=== PATIENT | female | born 1985 | race Caucasian/White ===

== ENCOUNTER 2016-08-04 18:41 | Emergency (ER) | payer OTHER ==
[~2016-08-04] VITALS: Ht 160 cm; Wt 60.0 kg
[~2016-08-04 18:41] MED LIST: BCPILLS PO
[2016-08-04 18:48] VITALS: TEMP 36.8; Ht 160 cm; Wt 60.0 kg
[2016-08-04 19:28] VITALS: O2SAT 99
[2016-08-04 19:33] LABS: BASO % 0.4 %; BASO ABS # 0.02 K/uL (0-0.2); COMPLETE YES; HEMATOCRIT 40.1 % (37-47); IG% 0.2 %; LYMPH % 46.6 %; LYMPH ABS # 2.58 K/uL (1.2-3.4); MEAN CELL VOLUME 87.6 fL (80-100); MEAN CORPUSCULAR HEMOGLOBIN 30.3 pg (25-34); MEAN CORPUSCULAR HGB CONC 34.7 g/dl (32-36); MEAN PLATELET VOLUME 11.1 fL (7.4-10.4); MONO % 8.7 %; NEUT % 42.1 %; PLATELET COUNT 194 K/uL (130-400); RED BLOOD COUNT 4.58 M/uL (4.2-5.4); WHITE BLOOD COUNT 5.54 K/uL (4.8-10.8)
--- NOTE | 2016-08-04 19:53 | DIAGNOSTIC IMAGING REPORT ---
CHEST 2 VIEWS ROUTINE CLINICAL HISTORY: left sided chest pain dyspnea COMPARISON STUDY: No previous studies for comparison. FINDINGS: The bones soft tissues and hemidiaphragms are normal. The cardiomediastinal silhouette is normal. The lungs are clear. The pulmonary vasculature is normal. IMPRESSION: Negative chest. Electronically signed by: Jorge Luis Lawson M.D. 08/04/2016 7:52 PM Dictated Date/Time: 08/04/2016 7:51 PM
[2016-08-04 19:57] LABS: ALT/SGPT 16 U/L (12-78); BLOOD UREA NITROGEN 9 mg/dl (7-18); BUN/CREATININE RATIO 12.3 (10-20); CALCIUM 8.8 mg/dl (8.5-10.1); CARBON DIOXIDE 22 mmol/L (21-32); CHLORIDE 104 mmol/L (98-107); CREATININE 0.73 mg/dl (0.60-1.20); GLUCOSE 79 mg/dl (70-99); POTASSIUM 3.8 mmol/L (3.5-5.1); SODIUM 139 mmol/L (136-145)
[2016-08-04 20:07] LABS: ALB/GLOB RATIO 1.2 (0.9-2); ALKALINE PHOSPHATASE 57 U/L (45-117); AST/SGOT 14 U/L (15-37)
--- NOTE | 2016-08-04 20:46 | EMERGENCY ROOM VISIT NOTE ---
History First contact with patient: 18:55 Chief Complaint: CHEST PAIN Stated Complaint: HEART PAIN Nursing Triage Summary: chest pain for the past 3 wks saw urgent care today and told her to come +sob and dizzy pain is intermittant and getting worse and is more all the time and it feels tight History of Present Illness The patient is a 30 year old female who presents to the Emergency Room with complaints of chest pain intermittent for the past 3 weeks. The patient reports that she has had episodes of chest pain for the past few weeks. The pain typically lasts a few minutes at a time. She states that today, the pain became constant. She states it is a throbbing pain and is worse with a deep breath. She rates the discomfort a 5/10. The patient denies any history of similar chest pain. She has not taken any medications for the discomfort. She denies any history of heart disease or blood clots. She does have a family history of blood clots, but no family history of significant heart disease at a young age. She has felt slightly lightheaded at times, but denies shortness of breath, palpitations or syncope. She is not a smoker. She does take control pills. She denies recent travel. She denies fevers, cough, nausea, vomiting or abdominal pain. Review of Systems A complete 10-point Review of Systems was discussed with the patient, with pertinent positives and negatives listed in the History of Present Illness. All remaining Review of Systems questions can be considered negative unless otherwise specified. Social History Smoking Status: Never Smoker Housing Status: lives with significant other Occupation Status: employed Current/Historical Medications Scheduled Control Pills ( Control Pills), 1 TAB PO DAILY Allergies Coded Allergies: No Known Allergies (Unverified , 10/25/14) Physical Exam Vital Signs Date Time Temp Pulse Resp B/P Pulse Ox O2 Delivery O2 Flow Rate FiO2 08/04/16 21:02 72 18 117/73 72 Room Air 08/04/16 19:31 65 08/04/16 19:28 99 Room Air 08/04/16 19:28 70 16 97 Room Air 08/04/16 18:48 36.8 72 18 117/83 95 Room Air Physical Exam VITALS: Vitals are noted on the nurse's note and reviewed by myself. Vital signs stable. GENERAL: This is a 30-year-old female, mildly anxious appearing but in no acute distress, nondiaphoretic, well-developed well-nourished. SKIN: Capillary reflex less than 2 seconds. HEENT: Normocephalic. PERRLA. EOMI. Nares patent. Mucous membranes moist. Neck is supple without nuchal rigidity. HEART: Regular rate and rhythm without murmurs gallops or rubs. LUNGS: Clear to auscultation bilaterally without wheezes, rales or rhonchi. No retractions or accessory muscle use. ABDOMEN: Positive bowel sounds x 4. Soft, nontender, without masses or organomegaly. NEURO: Patient was alert and oriented to person place and time. Medical Decision & Procedures ER Provider Diagnostic Interpretation: CHEST 2 VIEWS ROUTINE FINDINGS: The bones soft tissues and hemidiaphragms are normal. The cardiomediastinal silhouette is normal. The lungs are clear. The pulmonary vasculature is normal. IMPRESSION: Negative chest. Laboratory Results 08/04/16 19:25 Red Blood Count 4.58, Mean Corpuscular Volume 87.6, Mean Corpuscular Hemoglobin 30.3, Mean Corpuscular Hemoglobin Concent 34.7, Mean Platelet Volume 11.1, Neutrophils (%) (Auto) 42.1, Lymphocytes (%) (Auto) 46.6, Monocytes (%) (Auto) 8.7, Eosinophils (%) (Auto) 2.0, Basophils (%) (Auto) 0.4, Neutrophils # (Auto) 2.34, Lymphocytes # (Auto) 2.58, Monocytes # (Auto) 0.48, Eosinophils # (Auto) 0.11, Basophils # (Auto) 0.02 08/04/16 19:25 Test 08/04/16 19:05 08/04/16 19:25 Urine Test NEG (NEG) White Blood Count 5.54 K/uL (4.8-10.8) Red Blood Count 4.58 M/uL (4.2-5.4) Hemoglobin 13.9 g/dL (12.0-16.0) Hematocrit 40.1 % (37-47) Mean Corpuscular Volume 87.6 fL (80-100) Mean Corpuscular Hemoglobin 30.3 pg (25-34) Mean Corpuscular Hemoglobin Concent 34.7 g/dl (32-36) Platelet Count 194 K/uL (130-400) Mean Platelet Volume 11.1 fL (7.4-10.4) Neutrophils (%) (Auto) 42.1 % Lymphocytes (%) (Auto) 46.6 % Monocytes (%) (Auto) 8.7 % Eosinophils (%) (Auto) 2.0 % Basophils (%) (Auto) 0.4 % Neutrophils # (Auto) 2.34 K/uL (1.4-6.5) Lymphocytes # (Auto) 2.58 K/uL (1.2-3.4) Monocytes # (Auto) 0.48 K/uL (0.11-0.59) Eosinophils # (Auto) 0.11 K/uL (0-0.5) Basophils # (Auto) 0.02 K/uL (0-0.2) RDW Standard Deviation 40.2 fL (36.4-46.3) RDW Coefficient of Variation 12.5 % (11.5-14.5) Immature Granulocyte % (Auto) 0.2 % Immature Granulocyte # (Auto) 0.01 K/uL (0.00-0.02) D-Dimer < 190 ug/L FEU (0-500) Anion Gap 13.0 mmol/L (3-11) Est Creatinine Clear Calc Drug Dose 91.5 ml/min Estimated GFR () 126.3 Estimated GFR (Non- 109.0 BUN/Creatinine Ratio 12.3 (10-20) Calcium Level 8.8 mg/dl (8.5-10.1) Total Bilirubin 0.3 mg/dl (0.2-1) Aspartate Amino Transf (AST/SGOT) 14 U/L (15-37) Alanine Aminotransferase (ALT/SGPT) 16 U/L (12-78) Alkaline Phosphatase 57 U/L (45-117) Troponin I < 0.015 ng/ml (0-0.045) Total Protein 7.4 gm/dl (6.4-8.2) Albumin 4.0 gm/dl (3.4-5.0) Globulin 3.4 gm/dl (2.5-4.0) Albumin/Globulin Ratio 1.2 (0.9-2) Thyroid Stimulating Hormone (TSH) 2.640 uIu/ml (0.300-4.500) ECG Rate (beats per minute): 68 Rhythm: normal sinus Findings: no acute ischemic change, no ectopy Comparison ECG Date: no prior available Medical Decision Differential diagnosis includes acute coronary syndrome, pulmonary embolism, pneumothorax, pericarditis, myocarditis, endocarditis, anxiety, musculoskeletal pain, GERD, costochondritis, among others. The patient was evaluated as above. Labs were drawn and IV access was obtained. The patient was placed on the bus driver/monitor. Imaging studies were performed and read by radiology as above. The patient was reassessed multiple times during their stay in the emergency department and remained in stable condition. The patient is a 30-year-old female who presents today complaining of chest pain on and off for the past 3 weeks. Labs revealed no leukocytosis, anemia or concerning electrolyte abnormalities. Troponin was not elevated. D-dimer was not elevated. Urine was negative. EKG was interpreted by myself and showed a normal sinus rhythm without evidence of ischemia or ectopy.. Chest x- ray is unremarkable. All findings were discussed with the patient. She does admit to a significant amount of stress in her life and question whether this pain could be related to stress/anxiety. I do feel this is likely contributed factor to the patient's pain. She was instructed to follow closely with her primary care provider for further evaluation of her chest pain. She will return sooner for any new/concerning symptoms. Based on the patient's presentation, lab results, and imaging studies, I feel the patient is stable for outpatient treatment. The patient's case was reviewed with Dr. Simon, ED attending physician, who agreed with my assessment and treatment plan. Discharge instructions were reviewed with the patient. The patient verbalized understanding of my assessment and treatment plan and was discharged home in good condition. Impression Primary Impression: Non-cardiac chest pain Departure Information Dispostion Home / Self-Care Condition GOOD Referrals No Doctor, Assigned (PCP) Patient Instructions My [facility] Additional Instructions You have been treated in the Emergency Department for your Chest Pain. Laboratory results and Imaging Studies have ruled out any cardiac or pulmonary cause of your chest pain. For pain control, you can use the following [id number] medicines (if >12 yo): - Regular strength (325mg/tab) Tylenol (acetaminophen) 2 tabs every 4-6 hours as needed. Do not exceed 12 tablets in a 24 hour period. Avoid taking more than 4 grams (4000 mg) of Tylenol per day. This includes any other sources of acetaminophen you may take on a regular basis. - Regular strength (200 mg/tab) Advil (ibuprofen) 1-2 tabs every 4-6 hours as needed. Do not exceed a dose of 3200 mg per day. You should schedule a follow-up appointment with your Primary Care Provider in 2 -3 days for further evaluation from today's Emergency Department visit. Return to the Emergency Department if your current symptoms worsen despite treatment course outlined above, or if you develop any of the following symptoms : worsening chest pain, associated jaw/arm pain, nausea, dizziness, shortness of breath, bloody cough, or fainting.
[2016-08-04 21:02] VITALS: BP 117/73; PULSE 72; O2SAT 72
== END 2016-08-04 21:02 | disposition home or self-care (01) ==
LOC: C.EDB 18:42 → C.EDC 21:02
DX: R07.89 Other chest pain (principal); Z82.49 Family history of ischemic heart disease and other diseases of the circulatory system; Z79.3 Long term (current) use of hormonal contraceptives

== ENCOUNTER → 2016-11-03 | Outpatient (CLI) | payer OTHER | END | disposition home or self-care (01) | LOC: C.PAPS 08:36 | PROVIDERS: ATTEND Physician Assistant | DX: Z01.419 Encounter for gynecological examination (general) (routine) without abnormal findings (principal) ==

== ENCOUNTER → 2017-05-18 | Outpatient (CLI) | payer OTHER ==
[2017-05-18 14:02] LABS: URINE APPEARANCE CLEAR (CLEAR); URINE BILIRUBIN NEG (NEG); URINE COLOR YELLOW; URINE NITRITE NEG (NEG); URINE PH 5.5 (4.5-7.5); URINE SPECIFIC GRAVITY 1.014 (1.000-1.030); UROBILINOGEN NEG (NEG)
[2017-05-18 14:09] LABS: MANUAL MICROSCOPIC REQUIRED? NO; REVIEW REQ? NO
== END | disposition home or self-care (01) ==
LOC: C.LABSPEC 13:25
PROVIDERS: ATTEND Obstetrics & Gynecology
DX: Z34.01 Encounter for supervision of normal first pregnancy, first trimester (principal)

== ENCOUNTER → 2017-05-27 | Outpatient (CLI) | payer OTHER ==
[2017-05-27 12:04] LABS: BASO % 0.3 %; BASO ABS # 0.03 K/uL (0-0.2); COMPLETE YES; EOS % 1.4 %; HEMATOCRIT 37.5 % (37-47); IG% 0.3 %; LYMPH % 22.8 %; LYMPH ABS # 2.19 K/uL (1.2-3.4); MEAN CORPUSCULAR HEMOGLOBIN 30.5 pg (25-34); MEAN CORPUSCULAR HGB CONC 34.7 g/dl (32-36); MEAN PLATELET VOLUME 10.5 fL (7.4-10.4); MONO % 8.8 %; NEUT % 66.4 %; PLATELET COUNT 259 K/uL (130-400); RED BLOOD COUNT 4.26 M/uL (4.2-5.4); WHITE BLOOD COUNT 9.59 K/uL (4.8-10.8)
[2017-05-28 11:28] LABS: VARICELLA ZOS VIR IGG VALUE >4000.00 INDEX
[2017-06-02 02:56] LABS: CHLAMYDIA TRACH RNA*** NOT DETECTED (NOT DETECTED); GC (NEIS GONORRHOEAE)RNA** NOT DETECTED (NOT DETECTED)
== END | disposition home or self-care (01) ==
LOC: C.LAB1850 11:04
PROVIDERS: ATTEND Obstetrics & Gynecology
DX: Z34.01 Encounter for supervision of normal first pregnancy, first trimester (principal)

== ENCOUNTER → 2017-07-04 | Outpatient (CLI) | payer OTHER ==
[2017-07-04 14:30] LABS: INFLUENZA B ANTIGEN Neg for Influ B (NEG)
== END | disposition home or self-care (01) ==
LOC: C.LAB 13:35
PROVIDERS: ATTEND Family Medicine
DX: O26.90 Pregnancy related conditions, unspecified, unspecified trimester (principal); R05 Cough; H92.01 Otalgia, right ear; R53.83 Other fatigue; R06.02 Shortness of breath; R61 Generalized hyperhidrosis; Z98.890 Other specified postprocedural states; O26.899 Other specified pregnancy related conditions, unspecified trimester; O99.89 Other specified diseases and conditions complicating pregnancy, childbirth and the puerperium

== ENCOUNTER → 2017-07-22 | Outpatient (CLI) | payer OTHER | END | disposition home or self-care (01) | LOC: C.LAB1850 08:38 | PROVIDERS: ATTEND Obstetrics & Gynecology | DX: Z34.02 Encounter for supervision of normal first pregnancy, second trimester (principal) ==

== ENCOUNTER → 2017-10-14 | Outpatient (CLI) | payer OTHER ==
[2017-10-14 10:24] LABS: HEMATOCRIT 33.6 % (37-47); HEMOGLOBIN 11.5 g/dL (12.0-16.0)
== END | disposition home or self-care (01) ==
LOC: C.LAB1850 08:56
PROVIDERS: ATTEND Obstetrics & Gynecology
DX: Z34.03 Encounter for supervision of normal first pregnancy, third trimester (principal); Z3A.00 Weeks of gestation of pregnancy not specified

== ENCOUNTER 2018-01-04 00:38 | Inpatient (IN) | payer OTHER ==
[~2018-01-04] VITALS: Ht 162.6 cm; Wt 87.0 kg
[2018-01-11] MEDS ORDERED: LACTATED RINGER'S 1000ML 500 ML IV PRN ×2 (08:28→12:34)
[2018-01-11] MEDS ORDERED: LACTATED RINGER'S 1000ML 1,000 ML IV PRN (08:28)
[2018-01-11 08:55] LABS: HEMATOCRIT 35.5 % (37-47); HEMOGLOBIN 12.1 g/dL (12.0-16.0); MEAN CELL VOLUME 90.6 fL (80-100); MEAN CORPUSCULAR HEMOGLOBIN 30.9 pg (25-34); MEAN CORPUSCULAR HGB CONC 34.1 g/dl (32-36); MEAN PLATELET VOLUME 11.8 fL (7.4-10.4); PLATELET COUNT 148 K/uL (130-400); RED CELL DISTRIBUTION WIDTH SD 45.7 fL (36.4-46.3); WHITE BLOOD COUNT 13.09 K/uL (4.8-10.8)
[2018-01-11 09:00] VITALS: Ht 162.6 cm; Wt 87.0 kg
[2018-01-11] MEDS: LACTATED RINGER'S 1000ML 1,000 ML IV SCH ×2 (09:28→15:57)
[2018-01-11] MEDS: OXYTOCIN 30 UNITS/500ML NSS IV PRN ×2 (09:33→19:49)
[2018-01-11] MEDS ORDERED: PRENTAB26 PO (10:15)
[2018-01-11] MEDS ORDERED: BUPIVACAINE 0.25% 30 ML VIAL ONE ×2 (11:34→18:00)
[2018-01-11] MEDS ORDERED: FENTANYL CITRATE INJ 50 MCG/1 ML 2 ML VIAL ONE ×4 (11:35→18:00)
[2018-01-11] MEDS ORDERED: EpHEDrine SULFATE INJ 50 MG/ML AMP ONE ×2 (11:35→18:00)
[2018-01-11] MEDS ORDERED: FENTANYL 2MCG/ML ROPIV 1.25MG/ML 100ML BAG ONE ×2 (11:36→18:01)
[2018-01-11] MEDS ORDERED: LIDOCAINE HCL 2% MPF 5 ML VIAL (20MG/ML) ONE ×3 (12:21→18:41)
[2018-01-11] MEDS ORDERED: NALOXONE HCL INJ 1 MG in SODIUM CHLORIDE 0.9% 1000ML 1,000 ML IV PRN (12:34)
[2018-01-11] MEDS ORDERED: DiphenhydrAMINE HCL 50 MG/ML VIAL IV PRN (12:45)
[2018-01-11] MEDS ORDERED: EpHEDrine SULFATE INJ 50 MG/ML AMP IV PRN (12:45)
[2018-01-11] MEDS ORDERED: NALOXONE HCL INJ 0.4 MG/1 ML VIAL/CARP IV PRN (12:45)
[2018-01-11] MEDS ORDERED: FENTANYL 2MCG/ML ROPIV 1.25MG/ML 100ML BAG EPI PRN (12:45)
[2018-01-11] MEDS ORDERED: NALBUPHINE HCL INJ 10 MG/ML 1ML AMP IV PRN (12:45)
[2018-01-11] MEDS ORDERED: ONDANSETRON INJ 2 MG/ML 2 ML VIAL IV PRN (12:45)
[2018-01-11] MEDS ORDERED: NURSING VERBAL MED ORDER ONE (22:50)
[2018-01-11] MEDS ORDERED: LACTATED RINGER'S 1000ML 1,000 ML IV SCH (22:57)
[2018-01-11] MEDS ORDERED: OXYCODONE/ACETAMINOPHEN 5-325 TAB PO PRN (23:00)
[2018-01-11] MEDS ORDERED: ACETAMINOPHEN 325 MG TAB PO PRN (23:00)
[2018-01-11] MEDS ORDERED: HYDROCORTISONE ACETATE 25 MG SUPP PR PRN (23:00)
[2018-01-11] MEDS ORDERED: OXYTOCIN 30 UNITS/500ML NSS IV PRN (23:00)
[2018-01-11] MEDS ORDERED: LANOLIN OINT EXT PRN (23:00)
[2018-01-11] MEDS ORDERED: SUPERCREAM 0.870 % 15GM JAR EXT PRN (23:00)
[2018-01-11] MEDS ORDERED: BENZOCAINE 20% AER SPR 82.5 GM CAN EXT PRN (23:00)
--- NOTE | 2018-01-11 23:12 | Vaginal Delivery Summary ---
Vaginal Delivery Klaudia Jacobs reached complete dilation and pushed for about 90min before . She was prepped with soap and water, and then delivered the head of the . A nuchal cord was reduced. There was a mild shoulder dystocia that resolved in less than 60 seconds with Lupe positioning and gentle downward guidance of the 's head. The right / anterior shoulder then delivered, followed by the posterior shoulder and the remainder of the 's body. A viable female was placed on the maternal abdomen and cord was clamped and cut by the FOB. Due to terminal meconium as well as mec stained fluid, bulb suction was provided even before cord was cut, and the infant was taken to the warmer for attention right after cord cutting. Normal movement of all limbs was seen. A large gush of blood was then noted per vagina. The cord avulsed promptly from the placenta with only minimal traction applied. Fundal massage was used to bring the placenta to the cervix, where it was manually retrieved. The placenta appeared to be complete, and brief exploration of the uterus revealed no retained portions. Bleeding rapidly improved to a normal level, however 1000mcg of cytotec were also given rectally to prevent excessive lochia going forward. A second degree was repaired in the usual manner with 2-0 vicryl. At the completion of delivery the fundus was firm, lochia was minimal and mom and infant were in good condition. EBL for delivery 500cc.
--- NOTE | 2018-01-11 23:34 | Anesthesia Procedure Note ---
Anesthesia Epidural Removal Nt Date & Time Jan 11, 2018 at 23:34 Vital Signs Pain Intensity: 9.0 Notes Mental Status: alert / awake / arousable, participated in evaluation Nausea / Vomiting: adequately controlled Pain: adequately controlled Airway Patency, RR, SpO2: stable & adequate BP & HR: stable & adequate Hydration State: stable & adequate Neuraxial Anesthesia: was administered, sensory block is resolving Anesthetic Complications: no major complications apparent, pt satisfied with anesthetic care Epidural: removed without complications, with tip intact
[2018-01-12] VITALS (7 sets, daily range): BP systolic 125–142; BP diastolic 83–91; PULSE 76–108; TEMP 36.5–37; O2SAT 97
[2018-01-12] MEDS ORDERED: MISOPROSTOL 200 MCG TAB PR STA (00:30)
[2018-01-12 06:35] LABS: HEMATOCRIT 29.7 % (37-47); HEMOGLOBIN 10.2 g/dL (12.0-16.0)
--- NOTE | 2018-01-12 07:03 | Progress Note ---
Subjective Jan 12, 2018. Subjective conversation w/ patient, physical exam Ambulation: ambulating normally Voiding: no voiding problems Passing Gas: Yes Diet Tolerance: Regular Diet Lochia: Moderate Feeding Type: Breast Feeding (with formula supplementation) Pain: Reports no pain Review of Systems Constitutional: + fever, + chills, + sweats Respiratory: + cough, + sputum, + wheezing Cardiac: + chest pain, + palpitations Abdomen: + pain, + nausea, + vomiting Female : + dysuria Objective Vital Signs Date Time Temp Pulse Resp B/P (MAP) Pulse Ox O2 Delivery O2 Flow Rate FiO2 01/12/18 04:35 36.9 108 20 129/86 (100) 97 Room Air 01/12/18 01:30 36.9 105 20 127/83 (98) 97 Room Air 01/12/18 01:30 97 Room Air Physical Exam General Appearance: WELL-APPEARING, NO APPARENT DISTRESS Respiratory/Chest: chest non-tender Cardiovascular: regular rate, rhythm, no gallop, no murmur Abdomen: normal bowel sounds Fundus: Firm, Relation to Umbilicus (below) Extremities: non-tender, no calf tenderness Laboratory Results Last 24 Hours Test 01/11/18 08:41 01/12/18 06:09 White Blood Count 13.09 K/uL Red Blood Count 3.92 M/uL Hemoglobin 12.1 g/dL 10.2 g/dL Hematocrit 35.5 % 29.7 % Mean Corpuscular Volume 90.6 fL Mean Corpuscular Hemoglobin 30.9 pg Mean Corpuscular Hemoglobin Concent 34.1 g/dl RDW Standard Deviation 45.7 fL RDW Coefficient of Variation 14.0 % Platelet Count 148 K/uL Mean Platelet Volume 11.8 fL Medications Current Inpatient Medications Medications (Trade) Dose Ordered Sig/Ирина Route Start Time Stop Time Status Last Admin Dose Admin Lactated Ringer's 1,000 ml @ 125 mls/hr Q8H IV 01/11/18 08:28 01/13/18 08:27 01/11/18 15:57 125 MLS/HR Lactated Ringer's 500 ml @ 999 mls/hr Q31M PRN IV 01/11/18 08:28 02/10/18 08:27 Lactated Ringer's 1,000 ml @ 125 mls/hr Q8H IV 01/11/18 22:57 02/10/18 22:56 Oxytocin (Pitocin IV) 30 units UD PRN IV 01/11/18 23:00 02/10/18 22:59 Benzocaine (Dermoplast Aero Spr) 1 appln PRN PRN EXT 01/11/18 23:00 02/10/18 22:59 01/12/18 04:50 1 APPLN Cocaine HCl (Supercream 0.870% Cr) BID PRN EXT 01/11/18 23:00 01/25/18 22:59 01/12/18 04:50 15 GM Hydrocortisone Acetate (Anusol Hc Supp) 25 mg BID PRN NV 01/11/18 23:00 02/10/18 22:59 Lanolin (Lanolin Oint) PRN PRN EXT 01/11/18 23:00 02/10/18 22:59 Prenat Multivit/ [place]/Iron/Folic Ac ( Vitamin Tab) 1 tab DAILY PO 01/12/18 08:00 02/11/18 07:59 Ibuprofen (Motrin Tab) 600 mg Q4H PRN PO 01/11/18 23:00 02/10/18 22:59 Acetaminophen (Tylenol Tab) 650 mg Q6H PRN PO 01/11/18 23:00 02/10/18 22:59 Oxycodone/ Acetaminophen (Percocet 5-325mg Tab) 1 tab Q4H PRN PO 01/11/18 23:00 01/25/18 22:59 Docusate Sodium (coLACE CAP) 100 mg BID PO 01/12/18 08:00 02/11/18 07:59 Diphtheria/ Pertussis/Tetanus Vacc (Adacel Inj) 0.5 ml ONCE ONCE IM. 01/12/18 09:00 01/12/18 09:01 Assessment and Plan Day#: 1 Continue Routine Care: 25 yo PPD1 s/p -AFVSS, Pt doingwell resting comfortably -F/U CBC HGB 10.2 down from 12.1 appropriate s/p delivery, no si/sx -Plan is to breast feed -Tolerating regular diet -Continue to encourage ambulation -Routine care Resident Physician Supervision Note: I interviewed and examined the patient. Discussed with Dr. Antonio and agree with findings and plan as documented in the note. Any exceptions or clarifications are listed here: [None] Documented By: Marta Ayala Resident Tracking Resident Involvement: Resident Care Provided Care Provided: Adult [facility]
[2018-01-12] MEDS: PRENATAL VITAMIN TAB PO SCH (08:27)
[2018-01-12] MEDS: DOCUSATE SODIUM 100 MG CAP PO SCH ×2 (08:27→19:41)
[2018-01-12] MEDS: IBUPROFEN 600 MG TAB PO PRN ×3 (08:28→23:42)
[2018-01-12] MEDS ORDERED: DIPHTHERIA/TETANUS/PERTUSSIS 0.5 ML SYR/VIAL IM. ONE (09:00)
[2018-01-13 02:35] VITALS: BP 142/96; PULSE 78; TEMP 36.6
[2018-01-13] MEDS: IBUPROFEN 600 MG TAB PO PRN (04:13)
[2018-01-13 05:10] VITALS: BP 121/77; PULSE 108; TEMP 37.9; O2SAT 96
[2018-01-13 06:00] VITALS: BP 123/74; PULSE 97; TEMP 37
--- NOTE | 2018-01-13 06:30 | Progress Note ---
Subjective Jan 13, 2018. Subjective conversation w/ patient, physical exam Ambulation: ambulating normally Voiding: no voiding problems Passing Gas: Yes Diet Tolerance: Regular Diet Lochia: Small (improving) Feeding Type: Breast Feeding (with formula supplementation) Pain: improving Review of Systems Constitutional: No fever, No chills, No sweats Respiratory: No cough, No sputum, No wheezing Cardiac: No chest pain, No palpitations Abdomen: No pain, No nausea, No vomiting, No diarrhea, No constipation Female : No dysuria Objective Vital Signs Date Time Temp Pulse Resp B/P (MAP) Pulse Ox O2 Delivery O2 Flow Rate FiO2 01/13/18 06:00 37.0 97 18 123/74 (90) 01/13/18 05:10 37.9 108 18 121/77 (92) 96 Room Air 01/13/18 02:35 36.6 78 142/96 (111) 01/12/18 23:45 36.6 76 18 130/88 (102) Room Air 01/12/18 19:45 Room Air 01/12/18 19:45 37.0 88 18 137/91 (106) Room Air 01/12/18 16:03 36.5 88 16 142/91 (108) Room Air 01/12/18 12:42 36.6 77 16 129/85 (100) Room Air 01/12/18 08:00 36.8 106 16 125/84 (98) Room Air 01/12/18 08:00 Room Air Physical Exam General Appearance: WELL-APPEARING, NO APPARENT DISTRESS Respiratory/Chest: chest non-tender, normal breath sounds Cardiovascular: regular rate, rhythm Abdomen: normal bowel sounds Fundus: Firm, Relation to Umbilicus (below) Extremities: no calf tenderness Laboratory Results Last Resulted 01/11/18 08:41 01/12/18 06:09 Medications Current Inpatient Medications Medications (Trade) Dose Ordered Sig/Ирина Route Start Time Stop Time Status Last Admin Dose Admin Lactated Ringer's 1,000 ml @ 125 mls/hr Q8H IV 01/11/18 08:28 01/13/18 08:27 01/11/18 15:57 125 MLS/HR Lactated Ringer's 500 ml @ 999 mls/hr Q31M PRN IV 01/11/18 08:28 02/10/18 08:27 Lactated Ringer's 1,000 ml @ 125 mls/hr Q8H IV 01/11/18 22:57 02/10/18 22:56 Oxytocin (Pitocin IV) 30 units UD PRN IV 01/11/18 23:00 02/10/18 22:59 Benzocaine (Dermoplast Aero Spr) 1 appln PRN PRN EXT 01/11/18 23:00 02/10/18 22:59 01/12/18 04:50 1 APPLN Cocaine HCl (Supercream 0.870% Cr) BID PRN EXT 01/11/18 23:00 01/25/18 22:59 01/12/18 04:50 15 GM Hydrocortisone Acetate (Anusol Hc Supp) 25 mg BID PRN OR 01/11/18 23:00 02/10/18 22:59 Lanolin (Lanolin Oint) PRN PRN EXT 01/11/18 23:00 02/10/18 22:59 Prenat Multivit/ [place]/Iron/Folic Ac ( Vitamin Tab) 1 tab DAILY PO 01/12/18 08:00 02/11/18 07:59 01/12/18 08:27 1 TAB Ibuprofen (Motrin Tab) 600 mg Q4H PRN PO 01/11/18 23:00 02/10/18 22:59 01/13/18 04:13 600 MG Acetaminophen (Tylenol Tab) 650 mg Q6H PRN PO 01/11/18 23:00 02/10/18 22:59 01/13/18 05:12 650 MG Oxycodone/ Acetaminophen (Percocet 5-325mg Tab) 1 tab Q4H PRN PO 01/11/18 23:00 01/25/18 22:59 Docusate Sodium (coLACE CAP) 100 mg BID PO 01/12/18 08:00 02/11/18 07:59 01/12/18 19:41 100 MG Assessment and Plan Day#: 2 Continue Routine Care: 32 yo PPD2 s/p -AFVSS, Pt doing well resting comfortably with baby -no si/sx of anemia -Plan is try breast feeding and supplementing with formula -Tolerating regular diet -Continue to encourage ambulation -Routine care -Provided Discharge Counseling regarding vaginal bleeding, fever, f/u 6 weeks, no heavy lifting for 2-3 weeks, breast feeding, taking pre-tabatha vitamin, and intercourse Resident Physician Supervision Note: I was present with Dr. Antonio during the history and exam. I discussed the case with the resident and agree with the findings and plan as documented in the note. Any exceptions or clarifications are listed here: PPD#2 [place] home Documented By: Estella Mendez Resident Tracking Resident Involvement: Resident Care Provided Care Provided: Adult [facility]
--- NOTE | 2018-01-13 07:02 | Discharge Instructions ---
Discharge Instructions Date of Service Jan 13, 2018. Admission Reason for Admission: Induction Discharge Discharge Diagnosis / Problem: Discharge Goals Goal(s): Routine recovery after delivery Medications Continue Dispensed Medications: supercream, dermaplast, tucks Activity Recommendations Activity Limitations: per Instructions/Follow-up section . Instructions / Follow-Up Instructions / Follow-Up ACTIVITY RECOMMENDATIONS: * Gradual return to full activity over the next 2-3 weeks. * No lifting - nothing heavier than baby over the next 2-3 weeks. * Do not engage in vigorous exercise, sexual activity or sports until cleared by your physician. * Do not drive or operate any motorized equipment until cleared by your physician. * You may shower/bathe daily. MEDICATIONS: For discomfort or pain, you may use Acetaminophen (Tylenol), Ibuprofen (Advil), or Naproxen (Aleve) following the package directions. For constipation you may use Colace following the package directions. BREAST CARE: If you are not breast feeding: * Wear a supportive bra 24 hours a day for one to two weeks. * Avoid stimulating your breasts and nipples as much as possible during the first few weeks after delivery. * When taking a shower, have the warm water hit your back, not breasts. * When your breasts feel full, apply ice packs. Usually three to four times a day helps ease the discomfort. * Take a mild pain medication (Tylenol / Motrin) when you are uncomfortable. If breast feeding: * Use breast milk to lubricate nipples. Lansinoh cream may be used for sore nipples. You do not need to remove cream prior to breast feeding. If using a different brand of cream, check the label for directions regarding removal of cream prior to nursing. * Wear a supportive bra. * If having problems with breasts or breast feeding, call a reimbursement consultant or your health care provider. EPISIOTOMY CARE: After delivery, if you have an episiotomy (stitches), the following steps will ease discomfort and aid healing. * For the first 24 hours after delivery, place ice packs next to your episiotomy to help reduce swelling. * After the first 24 hour-period, sitz baths, either portable or in the tub, are suggested. A shower with a shower arm sprayed over the episiotomy may be comforting. * Mary care should be done after each voiding and bowel movement. Squirt warm water from a plastic bottle over the perineum (region of the body between the anus and urinary opening) and pat dry. * Use Dermoplast to ease discomfort. Shake container. [place] directly over the episiotomy. Place a Tucks on a clean sanitary pad next to your episiotomy. SPECIAL CARE INSTRUCTIONS: When you are discharged from the hospital, it is important for you to follow the instructions listed below: * During the first week at home, you should be able to care for yourself and your baby. In addition, the usual light household activities are encouraged. * Limit your activities to the way you feel. Do not try to clean the house or move furniture. Be sensible. * If you actively engage in sports and have done so up until the time of your delivery, you may resume these activities as soon as you feel able. This may take up to one month or even longer. Use good judgment. * Continue to take your vitamins for at least six weeks after the of your baby. * Your diet need not be limited unless you were on a special diet before your delivery. Breast-feeding mothers need around 2500 calories per day and at least 64-80 ounces of fluid per day (8 to 10 glasses). * You should eat foods from the four major food groups. Crash diets or fad diets are to be avoided. Eating lean meats, fresh fruits and vegetables, low-fat dairy products, high fiber foods and a regular exercise program, will help you get back to your pre- weight without putting your health at risk. * Constipation is sometimes a problem after delivery. Take a mild laxative as needed. If breast feeding, Milk of Magnesia is acceptable to use. You may use a suppository or Fleets enema if no episiotomy. * A daily shower or tub bath is suggested. Be sure to thoroughly and gently dry the perineum. * A bloody vaginal discharge will usually continue until around four weeks post . A small amount of bleeding may continue for as long as six weeks. Vaginal discharge changes from the bright red bleeding after delivery to pink then brownish and finally yellowish-pink before becoming white and disappearing. * Bleeding may increase with activity. Your first period may come in 4-8 weeks. If you are breast feeding, your period may be delayed even longer. * August (sex) can begin whenever both you and your partner feel comfortable and do not have any form of genital infection. It is recommended that you wait at least six weeks for internal and external healing to occur. If you have questions, please talk to your health care practitioner. A condom should be used to prevent infection and . * Foreplay, gentle intercourse and lubrication is very important the first several times to prevent pain. A water-based lubricant such as K-Y jelly or Astroglide may be used. * If you have RH negative blood and your baby is RH positive, you will receive RHOGAM by injection prior to discharge. The nurse will give you a card to keep with you that has the date and place that you received RHOGAM after delivery. * During your care, you had a Rubella screen done to check for the presence of rubella antibodies in your blood. If your test was negative, you will receive a Rubella vaccine prior to discharge. This vaccine may cause a fever, soreness at the injection site and flu-like symptoms. If these symptoms persist, notify your health care practitioner. is not advised for one month after a Rubella vaccine. * Verbalizes understanding of car seat law as reviewed with patient nursing. * Car Seat hand-out given and reviewed with patient by nursing. * Shaken baby information reviewed with patient by nursing. Call you doctor if: * Heavy bleeding (saturating several pads an hour) or passing clots the size of your fist. * A fever >101 degrees F (38.3 degrees C) on two occasions four hours apart and /or chills. * Unusual pain in the pelvic or vaginal areas. * "Baby Blues" lasting longer than two weeks. If you have any questions or concerns, call your health care practitioner at . FOLLOW UP VISIT: * Please call the office at to schedule a 6 week examination. It is important you keep this appointment. It is important for you to make arrangements for either yearly or twice yearly check-ups thereafter. Current Hospital Diet Patient's current hospital diet: Regular OB Diet Discharge Diet Recommended Diet: Regular OB Diet Pending Studies Studies pending at discharge: yes List of pending studies: Placenta path pending Medical Emergencies . Who to Call and When: Medical Emergencies: If at any time you feel your situation is an emergency, please call 911 immediately. . Non-Emergent Contact Non-Emergency issues call your: [employer] Call Non-Emergent contact if: temperature is above 100.5 . . "Provider Documentation" section prepared by Abdias Antonio. . Resident Tracking Resident Involvement: Resident Care Provided Care Provided: Adult Hospital Medicine
[2018-01-13 07:20] VITALS: BP 107/72; PULSE 88; TEMP 36.6; O2SAT 97
[2018-01-13] MEDS: DOCUSATE SODIUM 100 MG CAP PO SCH (09:28)
[2018-01-13] MEDS: PRENATAL VITAMIN TAB PO SCH (09:28)
[2018-01-13 09:30] VITALS: TEMP 36.8
[2018-01-13 10:05] VITALS: BP_DIAS 72; PULSE 88; TEMP 36.8
== END 2018-01-13 10:55 | disposition home or self-care (01) | DRG 775 ==
LOC: C.LD 01-11 07:31 → C.OBG 01-12 01:22
PROVIDERS: ADMIT Obstetrics & Gynecology; ATTEND Obstetrics & Gynecology
PROC: 10E0XZZ Delivery of Products of Conception, External Approach (ICD-10-PCS; principal; 2018-01-11)
PROC: 0KQM0ZZ Repair Perineum Muscle, Open Approach (ICD-10-PCS; principal; 2018-01-11)
PROC: 3E030VJ Introduction of Other Hormone into Peripheral Vein, Open Approach (ICD-10-PCS; 2018-01-11)
DX: O48.0 Post-term pregnancy (principal); O69.81X0 Labor and delivery complicated by cord around neck, without compression, not applicable or unspecified; O77.0 Labor and delivery complicated by meconium in amniotic fluid; O66.0 Obstructed labor due to shoulder dystocia; O70.1 Second degree perineal laceration during delivery; Z37.0 Single live birth; Z3A.41 41 weeks gestation of pregnancy

== ENCOUNTER 2018-01-16 13:15 | Inpatient (IN) | payer OTHER ==
[~2018-01-16] VITALS: Ht 160 cm; Wt 83.1 kg
[2018-01-16] VITALS (8 sets, daily range): BP systolic 128–135; BP diastolic 84–86; PULSE 80–91; TEMP 36.8–39.3; O2SAT 96–99; Ht 160 cm; Wt 83.1 kg
[~2018-01-16 13:15] MED LIST changes: -BCPILLS PO; +PRENTAB26 PO
[2018-01-16] MEDS ORDERED: ACETAMINOPHEN IV 100 ML IV STA (13:41)
[2018-01-16] MEDS ORDERED: SODIUM CHLORIDE 0.9% 1000ML 500 ML IV ONE (13:41)
[2018-01-16] MEDS ORDERED: PIPERACILLIN/TAZOBACTAM 4.5 GM/100ML D5W IV STA (13:41)
[2018-01-16 13:58] LABS: BASO % 0.1 %; BASO ABS # 0.02 K/uL (0-0.2); EOS % 0.8 %; EOS ABS # 0.18 K/uL (0-0.5); HEMATOCRIT 27.4 % (37-47); HEMOGLOBIN 9.6 g/dL (12.0-16.0); LYMPH % 7.1 %; LYMPH ABS # 1.66 K/uL (1.2-3.4); MEAN CELL VOLUME 89.8 fL (80-100); MEAN CORPUSCULAR HEMOGLOBIN 31.5 pg (25-34); MEAN PLATELET VOLUME 10.2 fL (7.4-10.4); MONO % 8.3 %; MONO ABS # 1.93 K/uL (0.11-0.59); NEUT % 82.4 %; NEUT ABS # 19.25 K/uL (1.4-6.5); PLATELET COUNT 222 K/uL (130-400); RED CELL DISTRIBUTION WIDTH CV 13.6 % (11.5-14.5); WHITE BLOOD COUNT 23.34 K/uL (4.8-10.8)
[2018-01-16 14:06] LABS: PTT PATIENT 29.1 SECONDS (21.0-31.0)
[2018-01-16 14:09] LABS: ALBUMIN 2.1 gm/dl (3.4-5.0); CALCIUM 8.1 mg/dl (8.5-10.1); CREATININE 0.59 mg/dl (0.60-1.20); POTASSIUM 3.7 mmol/L (3.5-5.1)
--- NOTE | 2018-01-16 14:33 | DIAGNOSTIC IMAGING REPORT ---
CHEST ONE VIEW PORTABLE CLINICAL HISTORY: Sepsis. COMPARISON STUDY: Chest radiograph August 04, 2016. FINDINGS: The lung volumes are normal. No pneumothorax or pleural effusion is noted. There is no consolidation or evidence for pulmonary edema. Cardiac size is normal. Mediastinal contours are normal. The appearance of the chest is unchanged. Minimal bibasilar opacities favor atelectasis. IMPRESSION: No acute cardiopulmonary findings. Electronically signed by: Jared Ugalde M.D. 01/16/2018 2:32 PM Dictated Date/Time: 01/16/2018 2:30 PM
[2018-01-16] MEDS ORDERED: GENTAMICIN CONSULT ACTIVE PRN ×2 (15:00)
[2018-01-16] MEDS ORDERED: ACETAMINOPHEN 325 MG TAB PO PRN (15:00)
[2018-01-16] MEDS ORDERED: IV FLUIDS COMPLETED PRN (15:15)
[2018-01-16] MEDS ORDERED: GENTAMICIN INJ 320 MG in DEXTROSE 5% 100ML 100 ML IV ONE (15:30)
--- NOTE | 2018-01-16 15:31 | DIAGNOSTIC IMAGING REPORT ---
PELVIC ULTRASOUND CLINICAL HISTORY: Fever. Possible retained products. COMPARISON STUDY: None TECHNIQUE: Transabdominal and transvaginal sonography of the pelvis was performed. FINDINGS: The uterus is enlarged, measuring 20 x 7.6 x 11.6 cm. Endometrium is heterogeneous and thickened, measuring 2.3 cm in thickness. No significant increased vascularity within the endometrium is noted. No discrete endometrial mass is identified. Slight hypervascularity within the uterine fundus is probably within normal limits. The right ovary measures 2.8 x 1.3 x 1.6 cm and the left measures 1.9 x 1.8 x 1.7 cm. There is no adnexal mass. Color flow is identified within each ovary. There was no free fluid. Incidental note was made of moderate gallbladder wall thickening, a nonspecific finding. No gallstones were noted. The gallbladder wall appeared edematous. There is no sonographic Mello sign. IMPRESSION: 1. Thickened, heterogeneous endometrium without significant increased vascularity. The findings are probably within normal limits given recent delivery. Retained products of conception or endometritis could appear similar although are considered less likely. 2. Moderately thickened, edematous gallbladder wall, a nonspecific finding. No gallstones. No sonographic Mello sign. Electronically signed by: Jared Ugalde M.D. 01/16/2018 3:30 PM Dictated Date/Time: 01/16/2018 3:19 PM
--- NOTE | 2018-01-16 16:07 | HISTORY & PHYSICAL EXAMINATION ---
DATE OF ADMISSION: 01/16/2018 ADMITTING DIAGNOSIS: Presumed endometritis. ADMISSION HISTORY: The patient is a 32-year-old 1, para 1, status post normal spontaneous vaginal delivery on 11 January, who is admitted from the Emergency Room for presumed endometritis. The patient called today with shaking chills and fever at home. This has been going on since day #3. The patient actually spiked on the day of discharge and on the evening of upgoing home to 101-102. She called on day #3 and was empirically treated with Augmentin p.o. and she has been on that for 48 hours. She continues to have spiking fevers and chills while on the Augmentin. Otherwise, the patient states that she feels fine. She is not complaining of any respiratory symptoms. She is not having any dysuria. She has some generalized lower back pain. The patient is not complaining of any lower abdominal cramping. She has not complained of any unusual bleeding. She is not complaining of any dysuria or urinary frequency. The patient presented to the emergency room where an elevated fever and white count were documented and she has been admitted with the presumed diagnosis of endometritis. PAST MEDICAL HISTORY: OBSTETRICAL: As above. DUST OPERATOR: Abnormal Pap smear. MEDICAL: None. SURGICAL: Knee surgery, wisdom teeth extraction, tonsillectomy. ALLERGIES: No known drug allergies. SOCIAL HISTORY: No smoking. FAMILY HISTORY: Noncontributory. REVIEW OF SYSTEMS: As per HPI. ADMISSION PHYSICAL EXAMINATION: GENERAL: Shows a pleasant female in no acute distress. VITAL SIGNS: Blood pressure 156/89 and a temp of 39.0 centigrade. HEENT: Unremarkable. NECK: Supple. LUNGS: Clear. HEART: With a regular rhythm and rate. ABDOMEN: Soft, nontender with no palpable masses. There is no rebound. There is no guarding. There is no organomegaly. Positive bowel sounds. PELVIC: Deferred. EXTREMITIES: Shows no deep calf tenderness. NEUROLOGIC: Grossly intact. ADMISSION LABORATORY VALUES: Show a white count of 23,000. Chemistry shows an SGOT of 67. ADMISSION RADIOGRAPHIC EVALUATION: Pelvic ultrasound shows unremarkable uterus, mild thickening of the lining of the gallbladder. IMPRESSION: A 32-year-old 1, para 1, presumed endometritis, failed outpatient therapy. PLAN: The patient continues to have spiking fevers and chills despite outpatient oral antibiotics. She was given a dose of Zosyn in the Emergency Room by the ER physician. Broad spectrum antibiotics are indicated in the form of ampicillin, gentamicin and clindamycin. Dosing of the gentamicin will be per pharmacy. If this is a endometritis, the patient should improve clinically within 24-48 hours. That clinical response will be in the form of defervescence. If 48 hours of IV broad spectrum antibiotics fails to break the fever, less common sources for the fever will need to be investigated, such as septic pelvic thrombophlebitis. Presumed diagnosis and treatment plan discussed with the patient and family. All questions answered of the patient and the patient will be admitted.
--- NOTE | 2018-01-16 16:08 | Pharmacy Progress Note ---
Pharmacy Antibiotic Consult Date of Service: Jan 16, 2018. Pharmacy Dosing Scope Pharmacy is consulted to initiate gentamicin IV dosing therapy, order appropriate labs and adjust drug dose/frequency. Subjective The patient is a 32 year old female admitted on 01-16 Objective Height (Feet): 5 Height (Inches): 3 Weight (Kilograms): 82.90 Lab Results (24hrs): Test 01/16/18 13:30 01/16/18 13:42 01/16/18 14:00 White Blood Count 23.34 K/uL (4.8-10.8) Red Blood Count 3.05 M/uL (4.2-5.4) Hemoglobin 9.6 g/dL (12.0-16.0) Hematocrit 27.4 % (37-47) Mean Corpuscular Volume 89.8 fL (80-100) Mean Corpuscular Hemoglobin 31.5 pg (25-34) Mean Corpuscular Hemoglobin Concent 35.0 g/dl (32-36) Platelet Count 222 K/uL (130-400) Mean Platelet Volume 10.2 fL (7.4-10.4) Neutrophils (%) (Auto) 82.4 % Lymphocytes (%) (Auto) 7.1 % Monocytes (%) (Auto) 8.3 % Eosinophils (%) (Auto) 0.8 % Basophils (%) (Auto) 0.1 % Neutrophils # (Auto) 19.25 K/uL (1.4-6.5) Lymphocytes # (Auto) 1.66 K/uL (1.2-3.4) Monocytes # (Auto) 1.93 K/uL (0.11-0.59) Eosinophils # (Auto) 0.18 K/uL (0-0.5) Basophils # (Auto) 0.02 K/uL (0-0.2) RDW Standard Deviation 45.0 fL (36.4-46.3) RDW Coefficient of Variation 13.6 % (11.5-14.5) Immature Granulocyte % (Auto) 1.3 % Immature Granulocyte # (Auto) 0.30 K/uL (0.00-0.02) Prothrombin Time 10.0 SECONDS (9.0-12.0) Prothromb Time International Ratio 1.0 (0.9-1.1) Activated Partial Thromboplast Time 29.1 SECONDS (21.0-31.0) Partial Thromboplastin Ratio 1.1 Sodium Level 139 mmol/L (136-145) Potassium Level 3.7 mmol/L (3.5-5.1) Chloride Level 108 mmol/L (98-107) Carbon Dioxide Level 21 mmol/L (21-32) Anion Gap 10.0 mmol/L (3-11) Blood Urea Nitrogen 11 mg/dl (7-18) Creatinine 0.59 mg/dl (0.60-1.20) Est Creatinine Clear Calc Drug Dose 137.0 ml/min Estimated GFR () 138.6 Estimated GFR (Non- 119.6 BUN/Creatinine Ratio 18.7 (10-20) Random Glucose 89 mg/dl (70-99) Calcium Level 8.1 mg/dl (8.5-10.1) Total Bilirubin 0.4 mg/dl (0.2-1) Aspartate Amino Transf (AST/SGOT) 67 U/L (15-37) Alanine Aminotransferase (ALT/SGPT) 52 U/L (12-78) Alkaline Phosphatase 183 U/L (45-117) Total Protein 6.0 gm/dl (6.4-8.2) Albumin 2.1 gm/dl (3.4-5.0) Globulin 3.9 gm/dl (2.5-4.0) Albumin/Globulin Ratio 0.5 (0.9-2) Bedside Lactic Acid Venous 0.69 mmol/L (0.90-1.70) Urine Color YELLOW Urine Appearance CLEAR (CLEAR) Urine pH 7.0 (4.5-7.5) Urine Specific [place] 1.011 (1.000-1.030) Urine Protein NEG (NEG) Urine Glucose (UA) NEG (NEG) Urine Ketones NEG (NEG) Urine Occult Blood NEG (NEG) Urine Nitrite NEG (NEG) Urine Bilirubin NEG (NEG) Urine Urobilinogen NEG (NEG) Urine Leukocyte Esterase NEG (NEG) Urine WBC (Auto) 0 /hpf (0-5) Urine RBC (Auto) 0-4 /hpf (0-4) Urine Hyaline Casts (Auto) 0 /lpf (0-5) Urine Epithelial Cells (Auto) 5-10 /lpf (0-5) Urine Bacteria (Auto) NEG (NEG) Micro Results: Item Value Date Time Blood Culture Received 01/16/18 1343 Blood Pending Blood Culture Received 01/16/18 1330 Blood Pending Assessment & Plan Pharmacy consulted for gentamicin dosing. Patient , presenting with fever. Gentamicin: * Patient - studies suggest extended interval dosing may be preferred * Will give gentamicin 320 mg x 1 (~5 mg/kg - based upon Adj IBW) - patient currently in the ED * Will order a random level for midnight tonight to determine if Q24 hr dosing is appropriate * Scr 0.59 mg/dl , CrCl ~137 Pharmacy will continue to follow and will adjust dose/frequency as necessary. Thank you
[2018-01-16] MEDS ORDERED: IBUP-1050 PO (16:14)
[2018-01-16] MEDS ORDERED: AMOX875T PO (16:14)
[2018-01-16] MEDS ORDERED: [UNRECOGNIZED DRUG - OTHER] PO (16:14)
--- NOTE | 2018-01-16 16:28 | EMERGENCY ROOM VISIT NOTE ---
History Report prepared by Emre: Nancie Kaplan Under the Supervision of: Dr. Teja Agustin M.D. 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 She recently delivered her first baby vaginally 5 days ago and the next night, she developed a fever that only occurred at night. She notes she had a fever 4 days car rental service attendant, and she was discharged 3 days car rental service attendant, however her fever returned that night. She was started on Augmentin 3 days car rental service attendant. The pt reports she has some chest pain which she describes as tightness. She has some bilateral LE swelling but denies any urinary symptoms, rash, or abnormal vaginal discharge. The patient took some ibuprofen at 0500 and 1300 today but it did not modify her symptoms. Source of History: patient Onset: 4 days car rental service attendant Position: head, other (upper and lower extremities) Quality: other (fever) Timing: other (after delivering her baby vaginally 5 days car rental service attendant) Associated Symptoms: + chest pain ("tightness"), No urinary symptoms, No rash Note: Positive BLE swelling. Negative abnormal vaginal discharge Review of Systems See HPI for pertinent positives & negatives. A total of 10 systems reviewed and were otherwise negative. Past Medical & Surgical Medical Problems: (1) Calf pain (2) Non-cardiac chest pain (3) Post term at 41 weeks gestation (4) endometritis Family History Cancer FH: diabetes mellitus FH: heart disease High blood pressure Kidney stones Social History Smoking Status: Never Smoker Housing Status: lives with family Occupation Status: employed Current/Historical Medications Scheduled Amoxicillin & Pot Clavulanate (Augmentin 875-125 mg), 1 TAB PO BID Ibuprofen (Advil), 200 MG PO PRN [Juice Plus Mvi], 3 TABS PO QAM Allergies Coded Allergies: No Known Allergies (Unverified , 01/11/18) Physical Exam Vital Signs Date Time Temp Pulse Resp B/P (MAP) Pulse Ox O2 Delivery O2 Flow Rate FiO2 01/16/18 13:58 96 Room Air 01/16/18 13:19 39.0 121 18 156/89 97 Room Air Physical Exam GENERAL: Patient is in no acute distress. HEENT: No acute trauma, normocephalic atraumatic, mucous membranes moist, no nasal congestion, no scleral icterus. No throat erythema or exudate. NECK: No stridor, no adenopathy, no meningismus, trachea is midline. LUNGS: Clear to auscultation bilaterally, no wheeze, no rhonchi, breath sounds equal. HEART: Tachycardic with a regular rhythm. No murmurs. ABDOMEN: Soft, nontender, bowel sounds positive, no hernias, no peritonitis. EXTREMITIES: No cyanosis, full range of motion of all the joints without pain or difficulty, no signs for acute trauma. Mild bilateral pedal edema. NEUROLOGIC: Oriented x 3, no acute motor or sensory deficits, no focal weakness. SKIN: No rash, no jaundice, no diaphoresis. Warm to the touch. Medical Decision & Procedures ER Provider Diagnostic Interpretation: Radiology results as stated below per my review and radiologist interpretation: CHEST ONE VIEW PORTABLE CLINICAL HISTORY: Sepsis. COMPARISON STUDY: Chest radiograph August 04, 2016. FINDINGS: The lung volumes are normal. No pneumothorax or pleural effusion is noted. There is no consolidation or evidence for pulmonary edema. Cardiac size is normal. Mediastinal contours are normal. The appearance of the chest is unchanged. Minimal bibasilar opacities favor atelectasis. IMPRESSION: No acute cardiopulmonary findings. Electronically signed by: Jared Ugalde M.D. 01/16/2018 2:32 PM PELVIC ULTRASOUND CLINICAL HISTORY: Fever. Possible retained products. COMPARISON STUDY: None TECHNIQUE: Transabdominal and transvaginal sonography of the pelvis was performed. FINDINGS: The uterus is enlarged, measuring 20 x 7.6 x 11.6 cm. Endometrium is heterogeneous and thickened, measuring 2.3 cm in thickness. No significant increased vascularity within the endometrium is noted. No discrete endometrial mass is identified. Slight hypervascularity within the uterine fundus is probably within normal limits. The right ovary measures 2.8 x 1.3 x 1.6 cm and the left measures 1.9 x 1.8 x 1.7 cm. There is no adnexal mass. Color flow is identified within each ovary. There was no free fluid. Incidental note was made of moderate gallbladder wall thickening, a nonspecific finding. No gallstones were noted. The gallbladder wall appeared edematous. There is no sonographic Mello sign. IMPRESSION: 1. Thickened, heterogeneous endometrium without significant increased vascularity. The findings are probably within normal limits given recent delivery. Retained products of conception or endometritis could appear similar although are considered less likely. 2. Moderately thickened, edematous gallbladder wall, a nonspecific finding. No gallstones. No sonographic Mello sign. Electronically signed by: Jared Ugalde M.D. 01/16/2018 3:30 PM Laboratory Results 01/16/18 13:30 Red Blood Count 3.05, Mean Corpuscular Volume 89.8, Mean Corpuscular Hemoglobin 31.5, Mean Corpuscular Hemoglobin Concent 35.0, Mean Platelet Volume 10.2, Neutrophils (%) (Auto) 82.4, Lymphocytes (%) (Auto) 7.1, Monocytes (%) (Auto) 8.3, Eosinophils (%) (Auto) 0.8, Basophils (%) (Auto) 0.1, Neutrophils # (Auto) 19.25, Lymphocytes # (Auto) 1.66, Monocytes # (Auto) 1.93, Eosinophils # (Auto) 0.18, Basophils # (Auto) 0.02 01/16/18 13:30 Test 01/16/18 13:30 01/16/18 13:42 01/16/18 14:00 White Blood Count 23.34 K/uL (4.8-10.8) Red Blood Count 3.05 M/uL (4.2-5.4) Hemoglobin 9.6 g/dL (12.0-16.0) Hematocrit 27.4 % (37-47) Mean Corpuscular Volume 89.8 fL (80-100) Mean Corpuscular Hemoglobin 31.5 pg (25-34) Mean Corpuscular Hemoglobin Concent 35.0 g/dl (32-36) Platelet Count 222 K/uL (130-400) Mean Platelet Volume 10.2 fL (7.4-10.4) Neutrophils (%) (Auto) 82.4 % Lymphocytes (%) (Auto) 7.1 % Monocytes (%) (Auto) 8.3 % Eosinophils (%) (Auto) 0.8 % Basophils (%) (Auto) 0.1 % Neutrophils # (Auto) 19.25 K/uL (1.4-6.5) Lymphocytes # (Auto) 1.66 K/uL (1.2-3.4) Monocytes # (Auto) 1.93 K/uL (0.11-0.59) Eosinophils # (Auto) 0.18 K/uL (0-0.5) Basophils # (Auto) 0.02 K/uL (0-0.2) RDW Standard Deviation 45.0 fL (36.4-46.3) RDW Coefficient of Variation 13.6 % (11.5-14.5) Immature Granulocyte % (Auto) 1.3 % Immature Granulocyte # (Auto) 0.30 K/uL (0.00-0.02) Prothrombin Time 10.0 SECONDS (9.0-12.0) Prothromb Time International Ratio 1.0 (0.9-1.1) Activated Partial Thromboplast Time 29.1 SECONDS (21.0-31.0) Partial Thromboplastin Ratio 1.1 Anion Gap 10.0 mmol/L (3-11) Est Creatinine Clear Calc Drug Dose 137.0 ml/min Estimated GFR () 138.6 Estimated GFR (Non- 119.6 BUN/Creatinine Ratio 18.7 (10-20) Calcium Level 8.1 mg/dl (8.5-10.1) Total Bilirubin 0.4 mg/dl (0.2-1) Aspartate Amino Transf (AST/SGOT) 67 U/L (15-37) Alanine Aminotransferase (ALT/SGPT) 52 U/L (12-78) Alkaline Phosphatase 183 U/L (45-117) Total Protein 6.0 gm/dl (6.4-8.2) Albumin 2.1 gm/dl (3.4-5.0) Globulin 3.9 gm/dl (2.5-4.0) Albumin/Globulin Ratio 0.5 (0.9-2) Bedside Lactic Acid Venous 0.69 mmol/L (0.90-1.70) Urine Color YELLOW Urine Appearance CLEAR (CLEAR) Urine pH 7.0 (4.5-7.5) Urine Specific [place] 1.011 (1.000-1.030) Urine Protein NEG (NEG) Urine Glucose (UA) NEG (NEG) Urine Ketones NEG (NEG) Urine Occult Blood NEG (NEG) Urine Nitrite NEG (NEG) Urine Bilirubin NEG (NEG) Urine Urobilinogen NEG (NEG) Urine Leukocyte Esterase NEG (NEG) Urine WBC (Auto) 0 /hpf (0-5) Urine RBC (Auto) 0-4 /hpf (0-4) Urine Hyaline Casts (Auto) 0 /lpf (0-5) Urine Epithelial Cells (Auto) 5-10 /lpf (0-5) Urine Bacteria (Auto) NEG (NEG) Laboratory results reviewed by me. Medications Administered Medications (Trade) Dose Ordered Sig/Ирина Route Start Time Stop Time Status Last Admin Dose Admin Sodium Chloride 500 ml @ 999 mls/hr Q31M ONCE IV 01/16/18 13:41 01/16/18 14:11 DC 01/16/18 13:41 999 MLS/HR Piperacillin Sod/ Tazobactam Sod (Zosyn Iv) 4.5 gm ONE STAT IV 01/16/18 13:41 01/16/18 13:45 DC 01/16/18 13:41 4.5 GM Acetaminophen 100 ml @ 400 mls/hr NOW STAT IV 01/16/18 13:41 01/16/18 13:55 DC 01/16/18 13:41 400 MLS/HR ED Course 1333: The patient was evaluated in room C3. A complete history and physical exam was performed. 1341: Ordered Acetaminophen 100 ml @ 400 mls/hr IV, Zosyn IV 4.5 gm IV, Sodium Chloride 500 ml @ 999 mls/hr IV 1439: Discussed the patient's case with Dr. Jarvis, COMMERCIAL ROOFING ESTIMATOR. The patient will be evaluated for further management. Medical Decision Differential diagnosis: Etiologies such as retained products of conception, endometritis, UTI, pneumonia , cellulitis, sepsis, dehydration, viral illness, as well as others were entertained. There is a significant leukocytosis at over 20,000, this is consistent with infection. She is anemic, likely consistent with her recent vaginal delivery. No significant electrolyte abnormality or kidney failure. There were a few very subtle liver enzyme elevations. Lactic acid level was not elevated making severe sepsis less likely. Chest film did not show pneumonia. Urinalysis did not show infection. Pelvic ultrasound did not show any true evidence for retained products of conception. The patient presents with a fever. She has a high white count. Patient just delivered a baby a few days ago. She likely has endometritis. I spoke to OB, patient is being hospitalized. The patient is aware of her findings, case management has been involved. Patient did receive IV Zosyn, IV saline and IV Tylenol while in the ED. She is currently resting comfortably. Medication Reconcilliation Current Medication List: was personally reviewed by me Blood Pressure Screening Patient's blood pressure: Elevated blood pressure Referred to COMMERCIAL ROOFING ESTIMATOR Consults Time Called: 1430 Consulting Physician: Dr. Jarvis, COMMERCIAL ROOFING ESTIMATOR Returned Call: [phone] Discussed the patient's case with Dr. Jarvis, COMMERCIAL ROOFING ESTIMATOR. The patient will be evaluated for further management. Impression Primary Impression: Endometritis Additional Impressions: Leukocytosis Fever Scribe Attestation The scribe's documentation has been prepared under my direction and personally reviewed by me in its entirety. I confirm that the note above accurately reflects all work, treatment, procedures, and medical decision making performed by me. Departure Information Dispostion Being Evaluated By Surgeon Referrals RV. Multani MD (PCP) Patient Instructions My [facility] Health Problem Qualifiers
[2018-01-16] MEDS ORDERED: HYDROCORTISONE ACETATE 25 MG SUPP PR PRN (17:00)
[2018-01-16] MEDS ORDERED: SUPERCREAM 0.870 % 15GM JAR EXT PRN (17:00)
[2018-01-16] MEDS: LACTATED RINGER'S 1000ML 1,000 ML IV SCH ×2 (17:16→23:55)
[2018-01-16] MEDS: CLINDAMYCIN IV 900 MG in DEXTROSE 5% 50ML 44 ML IV SCH (17:32)
[2018-01-16] MEDS ORDERED: AMPICILLIN IV 2,000 MG in SODIUM CHLOR 0.9% AD-VAN 100ML 100 ML IV SCH (18:00)
[2018-01-16] MEDS: AMPICILLIN IV 2,000 MG in SODIUM CHLOR 0.9% AD-VAN 100ML 100 ML IV SCH (19:41)
[2018-01-16] MEDS: DOCUSATE SODIUM 100 MG CAP PO SCH (21:20)
[2018-01-16] MEDS: IBUPROFEN 600 MG TAB PO PRN (22:56)
[2018-01-17] VITALS (9 sets, daily range): BP systolic 125–148; BP diastolic 84–96; PULSE 73–112; TEMP 36.4–39.3; O2SAT 95–98
[2018-01-17] MEDS: AMPICILLIN IV 2,000 MG in SODIUM CHLOR 0.9% AD-VAN 100ML 100 ML IV SCH ×4 (01:36→20:16)
[2018-01-17] MEDS: CLINDAMYCIN IV 900 MG in DEXTROSE 5% 50ML 44 ML IV SCH ×3 (02:12→17:31)
--- NOTE | 2018-01-17 06:40 | OB/GYN Progress Note ---
GOODS LAYER Progress Note Date of Service Jan 17, 2018. Subjective conversation w/ patient, physical exam Ambulation: ambulating normally Objective Vital Signs Date Time Temp Pulse Resp B/P (MAP) Pulse Ox O2 Delivery O2 Flow Rate FiO2 01/17/18 03:42 36.4 73 16 125/84 (98) 97 Room Air 01/16/18 23:50 96 Room Air 01/16/18 23:50 37.5 91 18 128/84 (99) 96 Room Air 01/16/18 22:56 39.1 01/16/18 22:28 39.0 01/16/18 22:04 39.3 01/16/18 21:20 39.0 01/16/18 20:14 37.0 01/16/18 19:19 36.8 91 18 128/86 (100) 99 Room Air 01/16/18 16:15 36.8 80 22 135/86 97 Room Air 01/16/18 15:44 85 28 127/89 96 Room Air 01/16/18 15:21 102 01/16/18 15:18 36.7 79 18 127/89 98 Room Air 01/16/18 13:58 96 Room Air 01/16/18 13:19 39.0 121 18 156/89 97 Room Air Physical Exam General Appearance: WELL-APPEARING, NO APPARENT DISTRESS Respiratory/Chest: lungs clear Abdomen: non tender Fundus: Non-Tender Extremities: no calf tenderness Laboratory Results Last 24 Hours Test 01/16/18 13:30 01/16/18 13:42 01/16/18 14:00 01/17/18 00:20 White Blood Count 23.34 K/uL Red Blood Count 3.05 M/uL Hemoglobin 9.6 g/dL Hematocrit 27.4 % Mean Corpuscular Volume 89.8 fL Mean Corpuscular Hemoglobin 31.5 pg Mean Corpuscular Hemoglobin Concent 35.0 g/dl Platelet Count 222 K/uL Mean Platelet Volume 10.2 fL Neutrophils (%) (Auto) 82.4 % Lymphocytes (%) (Auto) 7.1 % Monocytes (%) (Auto) 8.3 % Eosinophils (%) (Auto) 0.8 % Basophils (%) (Auto) 0.1 % Neutrophils # (Auto) 19.25 K/uL Lymphocytes # (Auto) 1.66 K/uL Monocytes # (Auto) 1.93 K/uL Eosinophils # (Auto) 0.18 K/uL Basophils # (Auto) 0.02 K/uL RDW Standard Deviation 45.0 fL RDW Coefficient of Variation 13.6 % Immature Granulocyte % (Auto) 1.3 % Immature Granulocyte # (Auto) 0.30 K/uL Prothrombin Time 10.0 SECONDS Prothromb Time International Ratio 1.0 Activated Partial Thromboplast Time 29.1 SECONDS Partial Thromboplastin Ratio 1.1 Sodium Level 139 mmol/L Potassium Level 3.7 mmol/L Chloride Level 108 mmol/L Carbon Dioxide Level 21 mmol/L Anion Gap 10.0 mmol/L Blood Urea Nitrogen 11 mg/dl Creatinine 0.59 mg/dl Est Creatinine Clear Calc Drug Dose 137.0 ml/min Estimated GFR () 138.6 Estimated GFR (Non- 119.6 BUN/Creatinine Ratio 18.7 Random Glucose 89 mg/dl Calcium Level 8.1 mg/dl Total Bilirubin 0.4 mg/dl Aspartate Amino Transf (AST/SGOT) 67 U/L Alanine Aminotransferase (ALT/SGPT) 52 U/L Alkaline Phosphatase 183 U/L Total Protein 6.0 gm/dl Albumin 2.1 gm/dl Globulin 3.9 gm/dl Albumin/Globulin Ratio 0.5 Bedside Lactic Acid Venous 0.69 mmol/L Urine Color YELLOW Urine Appearance CLEAR Urine pH 7.0 Urine Specific [place] 1.011 Urine Protein NEG Urine Glucose (UA) NEG Urine Ketones NEG Urine Occult Blood NEG Urine Nitrite NEG Urine Bilirubin NEG Urine Urobilinogen NEG Urine Leukocyte Esterase NEG Urine WBC (Auto) 0 /hpf Urine RBC (Auto) 0-4 /hpf Urine Hyaline Casts (Auto) 0 /lpf Urine Epithelial Cells (Auto) 5-10 /lpf Urine Bacteria (Auto) NEG Random Gentamicin Level 1.10 mcg/ml Test 01/17/18 04:44 Assessment and Plan Continue Routine Care: - antibiotics infusing - temperature spike last PM at 2200 to 39.3 - afebrile since - continue triples - recheck LFTs this AM - IV antibiotics till afebrile (<38.0) for 24 hours
[2018-01-17 06:59] LABS: BASO % 0.2 %; BASO ABS # 0.04 K/uL (0-0.2); EOS % 1.4 %; EOS ABS # 0.26 K/uL (0-0.5); HEMATOCRIT 29.5 % (37-47); HEMOGLOBIN 9.8 g/dL (12.0-16.0); IG# 0.49 K/uL (0.00-0.02); LYMPH ABS # 1.68 K/uL (1.2-3.4); MEAN CELL VOLUME 91.3 fL (80-100); MEAN CORPUSCULAR HEMOGLOBIN 30.3 pg (25-34); MEAN CORPUSCULAR HGB CONC 33.2 g/dl (32-36); MEAN PLATELET VOLUME 9.7 fL (7.4-10.4); MONO % 9.8 %; MONO ABS # 1.83 K/uL (0.11-0.59); NEUT ABS # 14.46 K/uL (1.4-6.5); PLATELET COUNT 228 K/uL (130-400); RED CELL DISTRIBUTION WIDTH CV 13.8 % (11.5-14.5); WHITE BLOOD COUNT 18.76 K/uL (4.8-10.8)
[2018-01-17 07:33] LABS: CALCIUM 7.9 mg/dl (8.5-10.1); CREATININE 0.63 mg/dl (0.60-1.20); POTASSIUM 3.5 mmol/L (3.5-5.1); TOTAL PROTEIN 5.8 gm/dl (6.4-8.2)
[2018-01-17] MEDS: IBUPROFEN 600 MG TAB PO PRN ×3 (07:52→20:28)
[2018-01-17] MEDS: DOCUSATE SODIUM 100 MG CAP PO SCH ×2 (08:33→20:16)
--- NOTE | 2018-01-17 09:01 | Pharmacy Progress Note ---
Pharmacy Abx Dose Short Note Date of Service Jan 17, 2018. Assessment & Plan Assessment 32 year old female receiving gentamicin, ampicillin and clindamycin for treatment of endometritis. Day # 2/10 of antimicrobial therapy. WBC count decreasing, afebrile since midnight. Physician plans to possibly d/c abx once afebrile x 24 hrs. Plan Gentamicin * Random level of 1.1 mcg/mL indicates appropriate for q24h extended interval dosing but most of the studies done in this population used actual body weight * Will plan to increase dosing to 420 mg (5 mg/kg actual body weight) q24h and dose sooner today since lower dose was given yesterday * No further levels to be ordered unless therapy to continue > 48 hours from now Ampicillin and Clindamycin * Pharmacy not consulted to dose but are appropriate Pharmacy will continue to follow and will adjust dose/frequency as necessary. Thank you.
[2018-01-17] MEDS: LACTATED RINGER'S 1000ML 1,000 ML IV SCH ×2 (10:29→21:11)
[2018-01-17] MEDS ORDERED: GENTAMICIN IV SCH (12:00)
[2018-01-17] MEDS ORDERED: DEXTROSE 5% IV SCH (12:00)
--- NOTE | 2018-01-17 16:01 | OB/GYN Progress Note ---
FOLDER GLUER OPERATOR Progress Note Date of Service Jan 17, 2018. Subjective conversation w/ patient, physical exam, chart review Ambulation: ambulating normally Voiding: no voiding problems Feeding Type: Breast Feeding Notes: Patient had another temp spike to 39.3. She could feel it coming on and noted that it happens at about the same times every day. Has not yet been on IV antibiotics for 24 hrs yet. Patient notes the only place where she really has pain is just behind the right ear that goes up into the ear and around to her right latter day. She does not note significant abdominal pain. she notes no terrell, no ruq pain. No pain of the perineum. If pushed she notes she does have some discomfort in the upper midline abd but attributes this to abd muscle separation. Review of Systems Constitutional: + fever, + chills, + sweats Respiratory: No cough, No sputum, No wheezing, No shortness of breath, No dyspnea on exertion, No dyspnea at rest, No hemoptysis, No problem reported Cardiac: + edema (in lower extremities), No chest pain, No orthopnea, No PND, No claudication, No palpitations, No problem reported Breast: No see HPI, No breast lump, No change in shape, No breast pain, No problem reported Abdomen: No pain, No nausea, No vomiting, No diarrhea, No constipation, No GI bleeding, No problem reported Female : No see HPI, No dysuria, No urinary frequency, No hematuria, No incontinence, No abnormal vaginal bleeding, No vaginal discharge, No problem reported Objective Vital Signs Date Time Temp Pulse Resp B/P (MAP) Pulse Ox O2 Delivery O2 Flow Rate FiO2 01/17/18 14:20 39.3 112 18 148/96 (113) 96 01/17/18 13:45 38.4 01/17/18 11:47 37.1 82 20 146/91 (109) 96 Room Air 01/17/18 07:32 37.2 01/17/18 07:15 36.8 79 16 145/95 (112) 98 Room Air 01/17/18 07:15 98 Room Air 01/17/18 03:42 36.4 73 16 125/84 (98) 97 Room Air 01/16/18 23:50 96 Room Air 01/16/18 23:50 37.5 91 18 128/84 (99) 96 Room Air 01/16/18 22:56 39.1 01/16/18 22:28 39.0 01/16/18 22:04 39.3 01/16/18 21:20 39.0 01/16/18 20:14 37.0 01/16/18 19:19 36.8 91 18 128/86 (100) 99 Room Air 01/16/18 16:15 36.8 80 22 135/86 97 Room Air Physical Exam General Appearance: WELL-APPEARING, WD/WN, NO APPARENT DISTRESS Abdomen: non tender, soft, no organomegaly Fundus: Firm, Non-Tender (significant pressure reveals no significant pain), Relation to Umbilicus (below u) Extremities: non-tender, normal inspection, + pedal edema (trace) evaluation of right ear reveals no erythema, d/c or bulging TM. she does note tenderness to palpation behind and just below the right ear. Laboratory Results Last 24 Hours Test 01/17/18 00:20 01/17/18 06:38 Random Gentamicin Level 1.10 mcg/ml White Blood Count 18.76 K/uL Red Blood Count 3.23 M/uL Hemoglobin 9.8 g/dL Hematocrit 29.5 % Mean Corpuscular Volume 91.3 fL Mean Corpuscular Hemoglobin 30.3 pg Mean Corpuscular Hemoglobin Concent 33.2 g/dl Platelet Count 228 K/uL Mean Platelet Volume 9.7 fL Neutrophils (%) (Auto) 77.0 % Lymphocytes (%) (Auto) 9.0 % Monocytes (%) (Auto) 9.8 % Eosinophils (%) (Auto) 1.4 % Basophils (%) (Auto) 0.2 % Neutrophils # (Auto) 14.46 K/uL Lymphocytes # (Auto) 1.68 K/uL Monocytes # (Auto) 1.83 K/uL Eosinophils # (Auto) 0.26 K/uL Basophils # (Auto) 0.04 K/uL RDW Standard Deviation 46.0 fL RDW Coefficient of Variation 13.8 % Immature Granulocyte % (Auto) 2.6 % Immature Granulocyte # (Auto) 0.49 K/uL Sodium Level 141 mmol/L Potassium Level 3.5 mmol/L Chloride Level 109 mmol/L Carbon Dioxide Level 23 mmol/L Anion Gap 9.0 mmol/L Blood Urea Nitrogen 8 mg/dl Creatinine 0.63 mg/dl Est Creatinine Clear Calc Drug Dose 128.3 ml/min Estimated GFR () 135.6 Estimated GFR (Non- 117.0 BUN/Creatinine Ratio 13.3 Random Glucose 81 mg/dl Calcium Level 7.9 mg/dl Total Bilirubin 0.3 mg/dl Aspartate Amino Transf (AST/SGOT) 51 U/L Alanine Aminotransferase (ALT/SGPT) 54 U/L Alkaline Phosphatase 171 U/L Total Protein 5.8 gm/dl Albumin 2.0 gm/dl Globulin 3.8 gm/dl Albumin/Globulin Ratio 0.5 Amylase Level 46 U/L Assessment and Plan Continue Routine Care: HD#1. Treating with triples for presumed endometritis. Recent spike. Reassured patient. Continue current course. If she continues to spike through triples, consider CT scan tomorrow. Recheck cbc,.
[2018-01-17 16:18] LABS: BASO % 0.2 %; BASO ABS # 0.03 K/uL (0-0.2); EOS ABS # 0.18 K/uL (0-0.5); HEMATOCRIT 26.8 % (37-47); IG# 0.39 K/uL (0.00-0.02); LYMPH % 7.1 %; LYMPH ABS # 1.27 K/uL (1.2-3.4); MEAN CELL VOLUME 90.5 fL (80-100); MEAN CORPUSCULAR HEMOGLOBIN 30.4 pg (25-34); MEAN CORPUSCULAR HGB CONC 33.6 g/dl (32-36); MEAN PLATELET VOLUME 9.1 fL (7.4-10.4); MONO % 11.8 %; NEUT % 77.7 %; NEUT ABS # 13.85 K/uL (1.4-6.5); NUCLEATED RED BLOOD CELL ABS 0.03 K/uL (0-0); PLATELET COUNT 222 K/uL (130-400); RED CELL DISTRIBUTION WIDTH CV 13.7 % (11.5-14.5); RED CELL DISTRIBUTION WIDTH SD 45.1 fL (36.4-46.3); WHITE BLOOD COUNT 17.82 K/uL (4.8-10.8)
[2018-01-18] VITALS (17 sets, daily range): BP systolic 130–172; BP diastolic 83–108; PULSE 69–101; TEMP 36.6–39.1; O2SAT 95–99
[2018-01-18] MEDS: CLINDAMYCIN IV 900 MG in DEXTROSE 5% 50ML 44 ML IV SCH ×2 (02:04→09:38)
[2018-01-18] MEDS: IBUPROFEN 600 MG TAB PO PRN ×4 (02:04→21:26)
[2018-01-18] MEDS: AMPICILLIN IV 2,000 MG in SODIUM CHLOR 0.9% AD-VAN 100ML 100 ML IV SCH ×2 (03:06→08:07)
[2018-01-18] MEDS: LACTATED RINGER'S 1000ML 1,000 ML IV SCH (06:03)
--- NOTE | 2018-01-18 07:10 | OB/GYN Progress Note ---
STULL HEWER Progress Note Date of Service Jan 18, 2018. Subjective conversation w/ patient, physical exam, lab review, review of studies Ambulation: ambulating normally Voiding: no voiding problems Passing Gas: Yes (nl bm yesterday) Diet Tolerance: Regular Diet Feeding Type: Breast Feeding Pain: minimal Notes: Patient continues to have spiking fevers. she can feel them coming. She notes last night she had some chest tightness and cough, but that has resolved. She denies abdominal pain. she notes her neck/ear pain is slightly improved. She only took motrin for that and fever last night. She notes nl BM yesterday. Review of Systems Constitutional: + fever, + chills Respiratory: No cough, No sputum, No wheezing, No shortness of breath, No dyspnea on exertion, No dyspnea at rest, No hemoptysis, No problem reported Cardiac: No chest pain, No orthopnea, No PND, No edema, No claudication, No palpitations, No problem reported Breast: No see HPI, No breast lump, No change in shape, No nipple discharge, No breast pain, No problem reported Abdomen: No pain, No nausea, No vomiting, No diarrhea, No constipation, No GI bleeding, No problem reported Female : No see HPI, No dysuria, No urinary frequency, No hematuria, No incontinence, No abnormal vaginal bleeding, No vaginal discharge, No problem reported Objective Vital Signs Date Time Temp Pulse Resp B/P (MAP) Pulse Ox O2 Delivery O2 Flow Rate FiO2 01/18/18 05:00 37.2 01/18/18 03:16 39.1 101 18 135/87 (103) 97 Room Air 01/18/18 00:10 36.8 69 18 145/94 (111) 01/18/18 00:10 Room Air 01/17/18 21:20 38.1 01/17/18 20:15 39.1 97 18 147/87 (107) 01/17/18 16:00 95 Room Air 01/17/18 16:00 36.7 88 18 132/85 (101) 95 Room Air 01/17/18 14:20 39.3 112 18 148/96 (113) 96 01/17/18 13:45 38.4 01/17/18 11:47 37.1 82 20 146/91 (109) 96 Room Air 01/17/18 07:32 37.2 01/17/18 07:15 36.8 79 16 145/95 (112) 98 Room Air 01/17/18 07:15 98 Room Air Physical Exam General Appearance: WELL-APPEARING, WD/WN, NO APPARENT DISTRESS Respiratory/Chest: lungs clear, normal breath sounds, no respiratory distress Cardiovascular: regular rate, rhythm, no murmur Abdomen: normal bowel sounds, non tender, soft, no organomegaly Fundus: Firm, Non-Tender, Relation to Umbilicus (well below) Extremities: non-tender, normal inspection, no pedal edema Laboratory Results Last 24 Hours Test 01/17/18 16:11 01/18/18 06:43 White Blood Count 17.82 K/uL Red Blood Count 2.96 M/uL Hemoglobin 9.0 g/dL Hematocrit 26.8 % Mean Corpuscular Volume 90.5 fL Mean Corpuscular Hemoglobin 30.4 pg Mean Corpuscular Hemoglobin Concent 33.6 g/dl Platelet Count 222 K/uL Mean Platelet Volume 9.1 fL Neutrophils (%) (Auto) 77.7 % Lymphocytes (%) (Auto) 7.1 % Monocytes (%) (Auto) 11.8 % Eosinophils (%) (Auto) 1.0 % Basophils (%) (Auto) 0.2 % Neutrophils # (Auto) 13.85 K/uL Lymphocytes # (Auto) 1.27 K/uL Monocytes # (Auto) 2.10 K/uL Eosinophils # (Auto) 0.18 K/uL Basophils # (Auto) 0.03 K/uL RDW Standard Deviation 45.1 fL RDW Coefficient of Variation 13.7 % Immature Granulocyte % (Auto) 2.2 % Immature Granulocyte # (Auto) 0.39 K/uL Nucleated RBC Absolute Count (auto) 0.03 K/uL Nucleated Red Blood Cells % 0.1 % Assessment and Plan Continue Routine Care: HD#2. continues to have spiking fevers to 39.3 max. Continues to have no localizing source of infection. Plan CT abd/pelvis /chest to try to determine if missing a source. Blood cultures have returned with no growth. Picture continues to be confusing. May need to get ID involved today to consider alternate forms of antibiotics.
[2018-01-18 07:29] LABS: CREATININE 0.62 mg/dl (0.60-1.20)
[2018-01-18 07:32] LABS: HEMATOCRIT 26.7 % (37-47); HEMOGLOBIN 9.1 g/dL (12.0-16.0); MEAN CELL VOLUME 89.9 fL (80-100); MEAN CORPUSCULAR HEMOGLOBIN 30.6 pg (25-34); MEAN CORPUSCULAR HGB CONC 34.1 g/dl (32-36); MEAN PLATELET VOLUME 9.6 fL (7.4-10.4); NUCLEATED RED BLOOD CELL ABS 0.02 K/uL (0-0); PLATELET COUNT 274 K/uL (130-400); RED CELL DISTRIBUTION WIDTH CV 13.7 % (11.5-14.5); RED CELL DISTRIBUTION WIDTH SD 45.4 fL (36.4-46.3); WHITE BLOOD COUNT 16.73 K/uL (4.8-10.8)
[2018-01-18] MEDS: DOCUSATE SODIUM 100 MG CAP PO SCH ×2 (08:07→21:25)
[2018-01-18] MEDS ORDERED: OPTIRAY 320 IV PRN (08:15)
[2018-01-18] MEDS ORDERED: OXYCODONE/ACETAMINOPHEN 5-325 TAB PO PRN (08:15)
--- NOTE | 2018-01-18 08:15 | Progress Note ---
Progress Note Date of Service Jan 18, 2018. Progress Note Patient notes that the worst thing that hurts for her is her neck on the right and this is wrapping around her head and now has a frontal headache. Aware that pressures have been borderline at times, but no evidence of pet and no indication for antihypertensives at this point. Breast and pelvic exam not done on admission. breast--no masses, erythema, skin changes or abnl note bilaterally. pelvic--patient has scant red blood on pad an perineum. Her perineum is healing well, no erythema or swelling noted. Hemorrhoids noted but do not appear red or firm. On BME, the uterus is mobile, appropriately tender for PPD #7. No cords felt, no foul smell. Will treat head an neck pain with narcotic as motrin really not helping significantly. Ct abd/pelvis/chest planned today. Will likely get ID consult after. Reassured patient that she is not going to and we are not trying to hide something from her, both concerns she has expressed to nursing. I promised her as soon as we know something, we will let her know. If this is an endometritis, it's not acting classically. Tenderness not consistent with this presumed diagnosis. therefore, searching for other causes ie, septic pelvic thrombophlebitis.
[2018-01-18 09:02] LABS: CALCIUM 7.9 mg/dl (8.5-10.1); CREATININE 0.59 mg/dl (0.60-1.20); POTASSIUM 3.6 mmol/L (3.5-5.1); TOTAL PROTEIN 5.4 gm/dl (6.4-8.2)
--- NOTE | 2018-01-18 10:18 | Medical Consult ---
Consultation Date of Consultation: Jan 18, 2018. Attending Physician: Ruddy Jarvis M.D. Reason for Consultation: 7 days , persistent spiking fever History of Present Illness 32-year-old female in prior good health underwent uneventful vaginal delivery approximately 1 week ago. Soon after delivery, the patient developed intermittently spiking fever, but not associated with other significant symptoms. She was discharged, and subsequently put on Augmentin for persistent fever without apparent impact. She was admitted on the and started on ampicillin, gentamicin, clindamycin, but is continued to have intermittent temperature spikes throughout the day. Her white count was significantly elevated upon admission and has slowly improved, now in the 16,000 range. She has had some minimal bloody vaginal discharge, but no significant abdominal or pelvic pain. She has had some mild cough and wheezing. Blood cultures have been no growth to date. Denies any other significant travel or exposure history. She did have epidural injection for delivery, and has had some right- sided neck pain over the last several days. No neck stiffness, no generalized headache. Past Medical/Surgical History Medical Problems: (1) Endometritis Status: Acute (2) Fever Status: Acute (3) Leukocytosis Status: Acute MEDICAL: None. SURGICAL: Knee surgery, wisdom teeth extraction, tonsillectomy. Family History Cancer FH: diabetes mellitus FH: heart disease High blood pressure Kidney stones Social History Smoking Status: Never Smoker Housing Status: lives with family Occupation Status: employed Allergies Coded Allergies: No Known Allergies (Unverified , 01/17/18) Current Inpatient Medications Current Inpatient Medications Medications (Trade) Dose Ordered Sig/Ирина Route Start Time Stop Time Status Last Admin Dose Admin Acetaminophen (Tylenol Tab) 650 mg Q4H PRN PO 01/16/18 15:00 02/15/18 14:59 01/16/18 21:27 650 MG Lactated Ringer's 1,000 ml @ 125 mls/hr Q8H IV 01/16/18 16:30 02/15/18 16:29 01/18/18 06:03 125 MLS/HR Miscellaneous Information (Consult) 1 ea UD PRN N/A 01/16/18 15:00 02/15/18 14:59 Clindamycin Phosphate 900 mg/ Dextrose 50 ml @ 50 mls/hr Q8H IV 01/16/18 18:00 01/26/18 17:59 01/18/18 09:38 50 MLS/HR Miscellaneous (Iv Fluids Completed) 1 ea PRN PRN N/A 01/16/18 15:15 01/16/19 15:14 Ampicillin Sodium 2000 mg/Sodium Chloride 100 ml @ 200 mls/hr Q6H IV 01/16/18 20:00 01/26/18 19:59 01/18/18 08:07 200 MLS/HR Cocaine HCl (Supercream 0.870% Cr) BID PRN EXT 01/16/18 17:00 01/30/18 16:59 01/16/18 17:31 15 GM Hydrocortisone Acetate (Anusol Hc Supp) 25 mg BID PRN OR 01/16/18 17:00 02/15/18 16:59 Docusate Sodium (coLACE CAP) 100 mg BID PO 01/16/18 21:00 02/15/18 20:59 01/18/18 08:07 100 MG Ibuprofen (Motrin Tab) 600 mg Q6H PRN PO 01/16/18 22:45 02/15/18 22:44 01/18/18 08:07 600 MG Gentamicin Sulfate 420 mg/ Dextrose 110.5 ml @ 100 mls/hr Q24H IV 01/17/18 12:00 01/26/18 11:59 01/17/18 11:44 100 MLS/HR Ioversol (Optiray 320) 100 ml UD PRN IV 01/18/18 08:15 01/18/18 18:00 Oxycodone/ Acetaminophen (Percocet 5-325mg Tab) 2 tab Q6 PRN PO 01/18/18 08:15 02/01/18 08:14 01/18/18 08:58 2 TAB Review of Systems All systems were reviewed and are negative except as per HPI Physical Exam Date Time Temp Pulse Resp B/P (MAP) Pulse Ox O2 Delivery O2 Flow Rate FiO2 01/18/18 09:32 37.3 80 20 158/103 (121) 95 Room Air 01/18/18 08:30 37.5 75 20 172/108 (129) 97 Room Air 01/18/18 08:00 36.8 73 18 158/103 (121) 99 Room Air 01/18/18 08:00 99 Room Air 01/18/18 05:00 37.2 01/18/18 03:16 39.1 101 18 135/87 (103) 97 Room Air 01/18/18 00:10 36.8 69 18 145/94 (111) 01/18/18 00:10 Room Air 01/17/18 21:20 38.1 01/17/18 20:15 39.1 97 18 147/87 (107) 01/17/18 16:00 95 Room Air 01/17/18 16:00 36.7 88 18 132/85 (101) 95 Room Air 01/17/18 14:20 39.3 112 18 148/96 (113) 96 01/17/18 13:45 38.4 01/17/18 11:47 37.1 82 20 146/91 (109) 96 Room Air General Appearance: WD/WN, no apparent distress Head: normocephalic, atraumatic Eyes: normal inspection, EOMI, sclerae normal ENT: normal ENT inspection, hearing grossly normal, pharynx normal Neck: supple, no adenopathy, thyroid normal, trachea midline Respiratory/Chest: chest non-tender, lungs clear, normal breath sounds, no respiratory distress Cardiovascular: regular rate, rhythm, no gallop, no murmur Abdomen/GI: normal bowel sounds, non tender, soft, no organomegaly Back: normal inspection, no CVA tenderness Extremities/Musculoskelatal: no calf tenderness, normal capillary refill, non- tender Neurologic/Psych: alert, normal mood/affect, oriented x 3 Skin: normal color, warm/dry, no rash Lymphatic: no adenopathy Laboratory Results RUN DATE: 01/18/18 [facility] LAB PAGE 1 RUN TIME: 651 Specimen Inquiry PATIENT: GEORGIA DAVID LOC: 4N U # : [id number] AGE/SX: 32/F ROOM: [facility] REG : 01/17/[address]: Ruddy Jarvis M.D. : 1985 BED: 2 DIS : STATUS: ADM IN TLOC: SPEC #: [id number] ANNABELLA: 01/16/18 STATUS: RES REQ #: [id number] RECD: 01/16/[address]: Teja Agustin M.D. SOURCE: BLOOD ENTR: 01/16/18 [facility] DR: RV. Pittman MD SPDC: ORDERED: BLOOD CULTURE COMMENTS: SET 2 Procedure Result Verified Site BLD CULT Preliminary 01/18/18-651 NO GROWTH TO DATE. Last 24 Hours Test 01/17/18 16:11 01/18/18 06:43 01/18/18 06:49 01/18/18 09:44 White Blood Count 17.82 K/uL 16.73 K/uL Red Blood Count 2.96 M/uL 2.97 M/uL Hemoglobin 9.0 g/dL 9.1 g/dL Hematocrit 26.8 % 26.7 % Mean Corpuscular Volume 90.5 fL 89.9 fL Mean Corpuscular Hemoglobin 30.4 pg 30.6 pg Mean Corpuscular Hemoglobin Concent 33.6 g/dl 34.1 g/dl Platelet Count 222 K/uL 274 K/uL Mean Platelet Volume 9.1 fL 9.6 fL Neutrophils (%) (Auto) 77.7 % Lymphocytes (%) (Auto) 7.1 % Monocytes (%) (Auto) 11.8 % Eosinophils (%) (Auto) 1.0 % Basophils (%) (Auto) 0.2 % Neutrophils # (Auto) 13.85 K/uL Lymphocytes # (Auto) 1.27 K/uL Monocytes # (Auto) 2.10 K/uL Eosinophils # (Auto) 0.18 K/uL Basophils # (Auto) 0.03 K/uL RDW Standard Deviation 45.1 fL 45.4 fL RDW Coefficient of Variation 13.7 % 13.7 % Immature Granulocyte % (Auto) 2.2 % Immature Granulocyte # (Auto) 0.39 K/uL Nucleated RBC Absolute Count (auto) 0.03 K/uL 0.02 K/uL Nucleated Red Blood Cells % 0.1 % 0.1 % Creatinine 0.62 mg/dl 0.59 mg/dl Est Creatinine Clear Calc Drug Dose 130.4 ml/min 137.0 ml/min Estimated GFR () 136.4 138.6 Estimated GFR (Non- 117.6 119.6 Sodium Level 143 mmol/L Potassium Level 3.6 mmol/L Chloride Level 112 mmol/L Carbon Dioxide Level 23 mmol/L Anion Gap 8.0 mmol/L Blood Urea Nitrogen 7 mg/dl BUN/Creatinine Ratio 12.0 Random Glucose 83 mg/dl Calcium Level 7.9 mg/dl Total Bilirubin 0.3 mg/dl Aspartate Amino Transf (AST/SGOT) 40 U/L Alanine Aminotransferase (ALT/SGPT) 45 U/L Alkaline Phosphatase 151 U/L Total Protein 5.4 gm/dl Albumin 2.0 gm/dl Globulin 3.4 gm/dl Albumin/Globulin Ratio 0.6 [~ rep ct add3]] CHEST ONE VIEW PORTABLE CLINICAL HISTORY: Sepsis. COMPARISON STUDY: Chest radiograph August 04, 2016. FINDINGS: The lung volumes are normal. No pneumothorax or pleural effusion is noted. There is no consolidation or evidence for pulmonary edema. Cardiac size is normal. Mediastinal contours are normal. The appearance of the chest is unchanged. Minimal bibasilar opacities favor atelectasis. IMPRESSION: No acute cardiopulmonary findings. Electronically signed by: Jared Ugalde M.D. 01/16/2018 2:32 PM Dictated Date/Time: 01/16/2018 2:30 PM The status of this report is Signed. Draft = Not yet reviewed or approved by Radiologist. Signed = Reviewed and approved by Radiologist. <AttendingPhy></AttendingPhy> <FamilyPhy></FamilyPhy> <PrimaryPhy>RV. Pittman MD</PrimaryPhy> <UnitNumber>[id number]</UnitNumber> < VisitNumber>[id number]</VisitNumber> <PatientName>GEORGIA DAVID</ PatientName> <DateOfBirth>1985</DateOfBirth> <Location>[facility]</Location> < ServiceDate>01/16/18</ServiceDate> <MNE>ESINDI</MNE> <OrderingPhy>Teja Agustin M.D.</OrderingPhy> <OrderingPhyMNE>f rep ord dr calderon</OrderingPhyMNE> < DictatingPhyMNE>f rep dict dr calderon</DictatingPhyMNE> <CCListMNE>f rep ct kvng</ CCListMNE> <AdmittingPhyMNE>f pt admit dr calderon</AdmittingPhyMNE> <AttendingPhyMNE >f pt attend dr calderon</AttendingPhyMNE> <ConsultingPhyMNE>f pt consult dr calderon</ConsultingPhyMNE> <FamilyPhyMNE>f pt fam dr calderon</FamilyPhyMNE> <OtherPhyMNE>f pt other dr calderon</OtherPhyMNE> < PrimaryPhyMNE>f pt prim care dr calderon</PrimaryPhyMNE> <ReferringPhyMNE>f pt referring dr calderon</ReferringPhyMNE> Assessment & Plan 32-year-old female 7 days now with persistent spiking fever despite broad-spectrum antibiotics. Certainly the 2 leading diagnoses would be endometritis or septic thrombophlebitis. Agree with need for CT scan of abdomen and pelvis to further evaluate. I will change antibiotics to IV ertapenem given lack of response to current antibiotics. Will follow.
--- NOTE | 2018-01-18 10:52 | DIAGNOSTIC IMAGING REPORT ---
CT OF THE CHEST WITH IV CONTRAST CLINICAL HISTORY: spiking fevers ENDOMETRITIS COMPARISON STUDY: No previous studies for comparison. TECHNIQUE: Following the IV administration of 118 mL of Optiray-320, CT of the thorax was performed from the thoracic inlet to the lung bases. Images are reviewed in the axial, sagittal, and coronal planes. IV contrast was administered without complication. A dose lowering technique was utilized adhering to the principles of ALARA. CT DOSE: 851.92 mGy.cm FINDINGS: Thyroid: Imaged portions of the thyroid gland are normal in appearance. Thoracic aorta: The thoracic aorta is normal in course and caliber, noting standard 3-vessel arch anatomy. No aneurysm or dissection is seen. Pulmonary vasculature: The pulmonary trunk is normal in caliber. There are no central filling defects identified to suggest pulmonary embolus. Note that this examination was not protocoled for the evaluation of pulmonary emboli. HEART: The heart is normal in size and configuration, without pericardial effusion. Lungs and pleural spaces: There are small bilateral pleural effusions right greater than left. There is mild septal edema. Dependent airspace opacities are felt to represent compressive atelectasis. Mediastinum: There is no mediastinal lymphadenopathy. Keshia: There is no evidence of pathologic hilar adenopathy Axilla: There is no nodes of pathologic axillary lymphadenopathy Upper abdomen: Partially visualized upper abdominal viscera is within normal limits. Skeletal structures: There are no lytic or blastic osseous lesions. IMPRESSION: 1. CT evidence of congestive failure/fluid overload with interstitial pulmonary edema, bilateral pleural effusions, and bibasilar atelectasis. Electronically signed by: Senthil Nathan M.D. 01/18/2018 10:50 AM Dictated Date/Time: 01/18/2018 10:45 AM
--- NOTE | 2018-01-18 11:01 | DIAGNOSTIC IMAGING REPORT ---
ABDOMEN AND PELVIS CT WITH IV AND ORAL CONTRAST HISTORY: female with recent vaginal delivery. The patient now presents with post endometritis with intermittent fever. spiking fevers TECHNIQUE: Multiaxial CT images of the abdomen and pelvis were performed following the use of intravenous and oral contrast. A dose lowering technique was utilized adhering to the principles of ALARA. COMPARISON STUDY: Pelvic ultrasound 01/16/2018, chest CT 01/18/2018. FINDINGS: Small bilateral pleural effusions with dependent bibasilar consolidation suggesting atelectasis. Additionally, there is bilateral intralobular septal thickening with thickening of the bronchovascular bundles suggesting pulmonary edema. Imaged inferior cardiac chambers are unremarkable. No large pericardial effusion. Mild gallbladder wall thickening. Mild periportal edema. Portal vein appears patent. Liver is otherwise unremarkable. Spleen, pancreas and adrenal glands are unremarkable. Kidneys, ureters are unremarkable. Partial distention of the bladder. Enlarged heterogeneous appearance of the uterus. No adnexal mass lesions. Prominent adnexal vascularity is likely within normal limits. Mild free pelvic fluid. Trace edema about the paracolic gutters. No bowel obstruction or focal bowel wall thickening identified. Terminal ileum and appendix appear normal. Diastases recti. Mild body wall edema. 7 x 4 mm soft tissue nodule is noted lateral to the right breast, indeterminate. Bones appear to be intact. Transitional lumbosacral anatomy. IMPRESSION: 1. Enlarged heterogeneous appearance of the uterus. 2. Trace free fluid within the dependent pelvis and abdomen with mild body wall edema, small bilateral pleural effusions and probable pulmonary edema with periportal edema is compatible with volume overload . 3. No bowel obstruction or focal bowel wall thickening. Normal appendix. 4. Mild diastases recti. Electronically signed by: Handy Hyde M.D. 01/18/2018 11:00 AM Dictated Date/Time: 01/18/2018 10:50 AM
[2018-01-18] MEDS: ERTAPENEM IV 1 GM in SODIUM CHLOR 0.9% AD-VAN 50ML 50 ML IV SCH (11:49)
[2018-01-18] MEDS: BUTALBITAL/ACETAMIN/CAFFEINE TAB PO PRN ×3 (14:50→23:45)
[2018-01-19] VITALS (19 sets, daily range): BP systolic 127–176; BP diastolic 84–106; PULSE 79–99; TEMP 36.8–39.3; O2SAT 94–100
[2018-01-19] MEDS: IBUPROFEN 600 MG TAB PO PRN ×3 (04:47→19:29)
[2018-01-19 06:40] LABS: BASO % 0.2 %; BASO ABS # 0.04 K/uL (0-0.2); EOS % 0.9 %; EOS ABS # 0.19 K/uL (0-0.5); HEMATOCRIT 25.8 % (37-47); HEMOGLOBIN 8.8 g/dL (12.0-16.0); IG# 0.42 K/uL (0.00-0.02); LYMPH % 5.9 %; LYMPH ABS # 1.18 K/uL (1.2-3.4); MEAN CELL VOLUME 89.9 fL (80-100); MEAN CORPUSCULAR HEMOGLOBIN 30.7 pg (25-34); MEAN CORPUSCULAR HGB CONC 34.1 g/dl (32-36); MEAN PLATELET VOLUME 9.5 fL (7.4-10.4); MONO ABS # 2.01 K/uL (0.11-0.59); NEUT % 80.9 %; PLATELET COUNT 283 K/uL (130-400); RED CELL DISTRIBUTION WIDTH CV 13.7 % (11.5-14.5); RED CELL DISTRIBUTION WIDTH SD 45.4 fL (36.4-46.3); WHITE BLOOD COUNT 20.04 K/uL (4.8-10.8)
[2018-01-19 07:15] LABS: CREATININE 0.71 mg/dl (0.60-1.20)
[2018-01-19] MEDS: BUTALBITAL/ACETAMIN/CAFFEINE TAB PO PRN ×3 (07:55→19:29)
--- NOTE | 2018-01-19 08:09 | OB/GYN Progress Note ---
[facility] Progress Note Date of Service Jan 19, 2018. Subjective conversation w/ patient, physical exam, lab review Ambulation: ambulating normally Voiding: no voiding problems Passing Gas: Yes Diet Tolerance: Regular Diet Lochia: Small Feeding Type: Breast Feeding Notes: continues to have chills with temperature elevations but no other localizing signs. headache & neck pain better with fioricet which has worked much better than the percocet. She had one loose stool which she describes as watery & yellow in color. no change in vaginal discharge or bleeding.changes. RUQ pain is better. Review of Systems Constitutional: + chills Respiratory: + wheezing Cardiac: No chest pain, No orthopnea, No PND, No edema, No claudication, No palpitations, No problem reported Breast: No see HPI, No breast lump, No change in shape, No nipple discharge, No breast pain, No problem reported Abdomen: + diarrhea Female : No see HPI, No dysuria, No urinary frequency, No hematuria, No incontinence, No abnormal vaginal bleeding, No vaginal discharge, No problem reported Objective Vital Signs Date Time Temp Pulse Resp B/P (MAP) Pulse Ox O2 Delivery O2 Flow Rate FiO2 01/19/18 05:45 37.8 01/19/18 04:45 38.8 01/19/18 04:15 37.1 88 18 156/97 (116) 96 Room Air 01/18/18 23:45 37.5 87 18 130/83 (99) 96 Room Air 01/18/18 22:40 38.7 01/18/18 21:55 38.4 01/18/18 21:25 37.2 01/18/18 19:30 97 Room Air 01/18/18 19:30 36.8 73 18 149/95 (113) 97 Room Air 01/18/18 17:50 37.9 01/18/18 16:40 38.7 01/18/18 15:55 38.2 96 18 150/97 (114) 97 Room Air 01/18/18 15:55 97 Room Air 01/18/18 14:50 36.8 78 18 163/106 (125) Room Air 01/18/18 11:50 36.6 70 18 149/97 (114) 95 Room Air 01/18/18 10:25 81 145/96 (112) 01/18/18 09:32 37.3 80 20 158/103 (121) 95 Room Air 01/18/18 08:30 37.5 75 20 172/108 (129) 97 Room Air Physical Exam General Appearance: WELL-APPEARING, NO APPARENT DISTRESS Respiratory/Chest: lungs clear, normal breath sounds, no respiratory distress Cardiovascular: regular rate, rhythm Abdomen: normal bowel sounds, non tender, soft Fundus: Firm (slight tenderness at fundus this morning.) Extremities: no calf tenderness Laboratory Results Last 24 Hours Test 01/18/18 09:44 01/19/18 06:11 Procalcitonin 0.11 ng/ml White Blood Count 20.04 K/uL Red Blood Count 2.87 M/uL Hemoglobin 8.8 g/dL Hematocrit 25.8 % Mean Corpuscular Volume 89.9 fL Mean Corpuscular Hemoglobin 30.7 pg Mean Corpuscular Hemoglobin Concent 34.1 g/dl Platelet Count 283 K/uL Mean Platelet Volume 9.5 fL Neutrophils (%) (Auto) 80.9 % Lymphocytes (%) (Auto) 5.9 % Monocytes (%) (Auto) 10.0 % Eosinophils (%) (Auto) 0.9 % Basophils (%) (Auto) 0.2 % Neutrophils # (Auto) 16.20 K/uL Lymphocytes # (Auto) 1.18 K/uL Monocytes # (Auto) 2.01 K/uL Eosinophils # (Auto) 0.19 K/uL Basophils # (Auto) 0.04 K/uL RDW Standard Deviation 45.4 fL RDW Coefficient of Variation 13.7 % Immature Granulocyte % (Auto) 2.1 % Immature Granulocyte # (Auto) 0.42 K/uL Toxic Granulation 2+ Dohle Bodies 2+ Creatinine 0.71 mg/dl Est Creatinine Clear Calc Drug Dose 113.8 ml/min Estimated GFR () 128.8 Estimated GFR (Non- 111.1 Assessment and Plan Day Number: 4 Continue Routine Care: WBC elevated again today. Zosyn had been started per Dr. Renteria's recommendations at 11am yesterday & replaced triple antibiotics. Still no localizing signs - suspect Septic Pelvic Thrombophlebitis. Await Dr. Renteria's recommendations today.
[2018-01-19] MEDS: DOCUSATE SODIUM 100 MG CAP PO SCH ×2 (09:00→20:36)
[2018-01-19] MEDS: SACCHAROMYCES BOUL (FLORASTOR) 250 MG CAP PO SCH (10:32)
[2018-01-19] MEDS: ERTAPENEM IV 1 GM in SODIUM CHLOR 0.9% AD-VAN 50ML 50 ML IV SCH (10:32)
--- NOTE | 2018-01-19 12:45 | Progress Note ---
Progress Note Date of Service Jan 19, 2018. Progress Note spoke to consultants, colleagues and patient summarized below given nature of her presentation, continued spiking fevers and elevated wbc, despite triple abx followed by zosyn x 24hrs, working diagnosis is SPT. Reviewed ct scan with reading radiologist Dr. Nathan, who does not appreciate any concern for PE on chest CT (also no evidence of pelvic thrombosis ). Given such, discussed with Dr. Renteria who agrees with now treating presumed SPT but desires to continue zosyn for approx another 24hrs. I have spoken to Dr. Seymour in anticoagulation who gives recommendations for lovenox therapeutic dosing based on pt weight at 80mg bid. Spoke to patient about all of this. She asks about concerns if the medication does not work. I explained to her that we have curb sided mfm about thoughts and that if she does not respond to this as next step would likely recommend transfer. She is tearful about this and wants this to work and not go anywhere else. I verbalized understanding. She is with family who asks questions that I tried to answer to the best of my ability. Will initiate lovenox per Dr. Seymour. Will be following plts at least daily with cbc. I did tell Dr. Renteria about patient wanting him to know about mosquito bites she had about 2 wks before delivery and he said he would consider other labs.
[2018-01-19] MEDS: ENOXAPARIN 80 MG/0.8 ML SYR SQ SCH (13:29)
[2018-01-20] VITALS (11 sets, daily range): BP systolic 119–168; BP diastolic 75–117; PULSE 59–86; TEMP 36.6–38.4; O2SAT 95–99
[2018-01-20] MEDS: ENOXAPARIN 80 MG/0.8 ML SYR SQ SCH ×2 (00:54→12:48)
[2018-01-20] MEDS: IBUPROFEN 600 MG TAB PO PRN ×4 (01:01→20:08)
[2018-01-20] MEDS: BUTALBITAL/ACETAMIN/CAFFEINE TAB PO PRN ×5 (01:01→23:26)
[2018-01-20] MEDS ORDERED: LABETALOL HCL 100 MG TAB PO ONE (04:00)
[2018-01-20 06:40] LABS: BASO % 0.2 %; BASO ABS # 0.04 K/uL (0-0.2); EOS % 1.3 %; EOS ABS # 0.24 K/uL (0-0.5); HEMATOCRIT 26.9 % (37-47); HEMOGLOBIN 9.1 g/dL (12.0-16.0); IG# 0.55 K/uL (0.00-0.02); LYMPH % 12.1 %; LYMPH ABS # 2.27 K/uL (1.2-3.4); MEAN CELL VOLUME 90.3 fL (80-100); MEAN CORPUSCULAR HEMOGLOBIN 30.5 pg (25-34); MEAN CORPUSCULAR HGB CONC 33.8 g/dl (32-36); MEAN PLATELET VOLUME 8.9 fL (7.4-10.4); MONO % 9.2 %; MONO ABS # 1.72 K/uL (0.11-0.59); NEUT % 74.3 %; NEUT ABS # 13.91 K/uL (1.4-6.5); PLATELET COUNT 241 K/uL (130-400); RED CELL DISTRIBUTION WIDTH CV 13.8 % (11.5-14.5); RED CELL DISTRIBUTION WIDTH SD 45.6 fL (36.4-46.3); WHITE BLOOD COUNT 18.73 K/uL (4.8-10.8)
--- NOTE | 2018-01-20 07:32 | Progress Note ---
Progress Note Date of Service Jan 20, 2018. Progress Note s/ feels well this am. happy that her fever did not come back. discussed rationale for adding labetalol. i do feel looking back on record had gest htn and pp htn. she is agreeable. no pain. no cp or sob. walking in halls. eating, voiding well. only complaint is headache on and off and feels the fiorocet helps. o/ temp curve as noted in record, last elevated temp late last night. bps as noted cor rrr, lungs ctab, abd soft ff 1 down, non tender, no rebound or guarding. ext nt calves. a/ hd #5, septic pelvic thrombophlebitis, pp htn, h/o concern for endometritis p/ c/w lovenox. wbc dec this am. zosyn plan was for additional 24hrs. need to d/ w Dr. Renteria when he wants to d/c for sure--uterus really non tender. Last dose for 24hr will be 10am dose today. cbc qd. will see if trt of htn helps her [place]. she is hopeful this plan of care works. support given.
[2018-01-20] MEDS: SACCHAROMYCES BOUL (FLORASTOR) 250 MG CAP PO SCH (08:30)
[2018-01-20] MEDS: DOCUSATE SODIUM 100 MG CAP PO SCH ×2 (09:00→20:10)
--- NOTE | 2018-01-20 10:24 | Infectious Disease Progress Nt ---
Progress Note Date of Service Jan 20, 2018. Subjective Pt evaluation today including: conversation w/ patient, conversation w/ family , physical exam, chart review, lab review, review of studies, conversation w/ health management consultant, review of inpatient medication list Lovenox was started yesterday, and patient has been afebrile the last 15 hours. Otherwise offers no new complaints. Blood cultures remain negative. CT scan of the abdomen and pelvis show no obvious significant abnormalities. Denies increase in shortness of breath or chest pain. No evidence of pulmonary emboli on CT scan. All Other Systems: Reviewed and Negative Medications Current Inpatient Medications Medications (Trade) Dose Ordered Sig/Ирина Route Start Time Stop Time Status Last Admin Dose Admin Acetaminophen (Tylenol Tab) 650 mg Q4H PRN PO 01/16/18 15:00 02/15/18 14:59 01/16/18 21:27 650 MG Miscellaneous (Iv Fluids Completed) 1 ea PRN PRN N/A 01/16/18 15:15 01/16/19 15:14 Cocaine HCl (Supercream 0.870% Cr) BID PRN EXT 01/16/18 17:00 01/30/18 16:59 01/16/18 17:31 15 GM Hydrocortisone Acetate (Anusol Hc Supp) 25 mg BID PRN RI 01/16/18 17:00 02/15/18 16:59 Docusate Sodium (coLACE CAP) 100 mg BID PO 01/16/18 21:00 02/15/18 20:59 01/18/18 21:25 100 MG Ibuprofen (Motrin Tab) 600 mg Q6H PRN PO 01/16/18 22:45 02/15/18 22:44 01/20/18 06:35 600 MG Oxycodone/ Acetaminophen (Percocet 5-325mg Tab) 2 tab Q6 PRN PO 01/18/18 08:15 02/01/18 08:14 01/18/18 08:58 2 TAB Ertapenem 1 gm/ Sodium Chloride 50 ml @ 120 mls/hr Q24H IV 01/18/18 10:30 01/28/18 10:29 01/19/18 10:32 120 MLS/HR Acetaminophen/ Butalbital/ Caffeine (Fioricet Tab) 1 tab Q4H PRN PO 01/18/18 12:45 02/17/18 12:44 01/20/18 06:35 1 TAB Saccharomyces Boulardii (Florastor Cap) 250 mg DAILY PO 01/19/18 09:00 02/18/18 08:59 01/20/18 08:30 250 MG Enoxaparin Sodium (Lovenox Inj) 80 mg Q12H SQ 01/19/18 13:00 02/18/18 12:59 01/20/18 00:54 80 MG Labetalol HCl (Normodyne Tab) 100 mg BID PO 01/20/18 20:00 02/19/18 19:59 Objective Vital Signs Date Time Temp Pulse Resp B/P (MAP) Pulse Ox O2 Delivery O2 Flow Rate FiO2 01/20/18 07:45 36.6 59 20 154/99 (117) 96 Room Air 01/20/18 07:45 96 Room Air 01/20/18 03:25 36.6 60 20 147/92 (110) 98 Room Air 01/19/18 23:15 36.8 80 24 135/91 (106) 98 Room Air 01/19/18 22:15 36.9 01/19/18 20:30 39.2 01/19/18 19:25 39.3 99 30 176/95 (122) 96 Room Air 01/19/18 19:25 96 Room Air 01/19/18 18:35 37.7 01/19/18 17:55 37.3 01/19/18 15:30 37.0 79 22 127/84 (98) 97 Room Air 01/19/18 15:30 97 Room Air 01/19/18 14:10 37.1 79 18 134/90 (105) 96 Room Air 01/19/18 13:40 37.9 01/19/18 12:20 39.0 01/19/18 11:25 39.0 94 24 174/106 (128) 100 Room Air 01/19/18 11:05 38.7 01/19/18 10:55 38.3 01/19/18 10:35 37.7 Physical Exam General Appearance: WD/WN, no apparent distress Eyes: normal inspection, EOMI, sclerae normal ENT: normal ENT inspection, hearing grossly normal, pharynx normal Neck: supple, no adenopathy Respiratory/Chest: chest non-tender, lungs clear, normal breath sounds, no respiratory distress Cardiovascular: regular rate, rhythm, no gallop, no murmur Abdomen: normal bowel sounds, non tender, soft, no organomegaly Extremities: non-tender, no calf tenderness, normal capillary refill Neurologic/Psychiatric: alert, normal mood/affect, oriented x 3 Skin: normal color, warm/dry, no rash Lymphatic: no adenopathy Laboratory Results RUN DATE: 01/18/18 [facility] LAB PAGE 1 RUN TIME: 651 Specimen Inquiry PATIENT: GEORGIA DAVID LOC: JoseMS4N U # : [id number] AGE/SX: 32/F ROOM: [facility] REG : 01/17/[address]: Ruddy Jarvis M.D. : 1985 BED: 2 DIS : STATUS: ADM IN TLOC: SPEC #: [id number] ANNABELLA: 01/16/18-4987 STATUS: RES REQ #: [id number] RECD: 01/16/18-1353 [facility] DR: Teja Agustin M.D. SOURCE: BLOOD ENTR: 01/16/18-[address] [facility] [address]: RV. Pittman MD [facility]: ORDERED: BLOOD CULTURE COMMENTS: SET 2 Procedure Result Verified Site BLD CULT Preliminary 01/18/18-06 NO GROWTH TO DATE. Last 24 Hours Test 01/20/18 06:31 White Blood Count 18.73 K/uL Red Blood Count 2.98 M/uL Hemoglobin 9.1 g/dL Hematocrit 26.9 % Mean Corpuscular Volume 90.3 fL Mean Corpuscular Hemoglobin 30.5 pg Mean Corpuscular Hemoglobin Concent 33.8 g/dl Platelet Count 241 K/uL Mean Platelet Volume 8.9 fL Neutrophils (%) (Auto) 74.3 % Lymphocytes (%) (Auto) 12.1 % Monocytes (%) (Auto) 9.2 % Eosinophils (%) (Auto) 1.3 % Basophils (%) (Auto) 0.2 % Neutrophils # (Auto) 13.91 K/uL Lymphocytes # (Auto) 2.27 K/uL Monocytes # (Auto) 1.72 K/uL Eosinophils # (Auto) 0.24 K/uL Basophils # (Auto) 0.04 K/uL RDW Standard Deviation 45.6 fL RDW Coefficient of Variation 13.8 % Immature Granulocyte % (Auto) 2.9 % Immature Granulocyte # (Auto) 0.55 K/uL Patient Name: GEORGIA DAVID Unit Number: [id number] Dictated: 01/18/[id number] Transcribed: 01/18/181054 JRB Printed Date/Time: [~ rep prt dt]/[~ rep prt tm] [~ rep ct labl] - [~ rep ct ivnm] [facility] [place] [place] [address] Dictated: 01/18/181049 Transcribed: 01/18/181054 JRB Printed Date/Time: [~ rep prt dt]/[~ rep prt tm] [~ rep ct labl] - [~ rep ct ivnm] [~ rep ct add3]] ABDOMEN AND PELVIS CT WITH IV AND ORAL CONTRAST HISTORY: female with recent vaginal delivery. The patient now presents with post endometritis with intermittent fever. spiking fevers TECHNIQUE: Multiaxial CT images of the abdomen and pelvis were performed following the use of intravenous and oral contrast. A dose lowering technique was utilized adhering to the principles of ALARA. COMPARISON STUDY: Pelvic ultrasound 01/16/2018, chest CT 01/18/2018. FINDINGS: Small bilateral pleural effusions with dependent bibasilar consolidation suggesting atelectasis. Additionally, there is bilateral intralobular septal thickening with thickening of the bronchovascular bundles suggesting pulmonary edema. Imaged inferior cardiac chambers are unremarkable. No large pericardial effusion. Mild gallbladder wall thickening. Mild periportal edema. Portal vein appears patent. Liver is otherwise unremarkable. Spleen, pancreas and adrenal glands are unremarkable. Kidneys, ureters are unremarkable. Partial distention of the bladder. Enlarged heterogeneous appearance of the uterus. No adnexal mass lesions. Prominent adnexal vascularity is likely within normal limits. Mild free pelvic fluid. Trace edema about the paracolic gutters. No bowel obstruction or focal bowel wall thickening identified. Terminal ileum and appendix appear normal. Diastases recti. Mild body wall edema. 7 x 4 mm soft tissue nodule is noted lateral to the right breast, indeterminate. Bones appear to be intact. Transitional lumbosacral anatomy. IMPRESSION: 1. Enlarged heterogeneous appearance of the uterus. 2. Trace free fluid within the dependent pelvis and abdomen with mild body wall edema, small bilateral pleural effusions and probable pulmonary edema with periportal edema is compatible with volume overload . 3. No bowel obstruction or focal bowel wall thickening. Normal appendix. 4. Mild diastases recti. Electronically signed by: Handy Hyde M.D. 01/18/2018 11:00 AM Dictated Date/Time: 01/18/2018 10:50 AM The status of this report is Signed. Draft = Not yet reviewed or approved by Radiologist. Signed = Reviewed and approved by Radiologist. <AttendingPhy>Ruddy Jarvis M.D.</AttendingPhy> <FamilyPhy>RV. Pittman MD</FamilyPhy> <PrimaryPhy>RV. Mutlani MD</ PrimaryPhy> <UnitNumber>[id number]</UnitNumber> <VisitNumber>[id number]</ VisitNumber> <PatientName>GEORGIA DAVID Rosy</PatientName> <DateOfBirth>1985 </DateOfBirth> <Location>C.MS4N</Location> <ServiceDate>01/16/18</ServiceDate> < MNE>ESINDI</MNE> <OrderingPhy>Poppy Amador M.D.</OrderingPhy> < OrderingPhyMNE>f rep ord dr calderon</OrderingPhyMNE> <DictatingPhyMNE>f rep dict dr caledron</DictatingPhyMNE> <CCListMNE>f rep ct kvng</CCListMNE> <AdmittingPhyMNE>f pt admit dr calderon</AdmittingPhyMNE> <AttendingPhyMNE>f pt attend dr calderon</ AttendingPhyMNE> <ConsultingPhyMNE>f pt consult dr calderon</ConsultingPhyMNE> <FamilyPhyMNE>f pt fam dr calderon</FamilyPhyMNE> <OtherPhyMNE>f pt other dr calderon</OtherPhyMNE> < PrimaryPhyMNE>f pt prim care dr calderon</PrimaryPhyMNE> <ReferringPhyMNE>f pt referring dr calderon</ReferringPhyMNE> Assessment and Plan 32-year-old female 7 days now with persistent spiking fever despite broad-spectrum antibiotics but with defevervesence since starting lovenox. Most likely with septic pelvic thrombophlebitis, no obvious bacterial infection. Will give one more dose of ertapenem (10:30) then hold further antibiotics. See no contraindication to discharge from ID standpoint. Advised to call immediately if recurrent fever, or any other questions or concerns.
[2018-01-20] MEDS: ERTAPENEM IV 1 GM in SODIUM CHLOR 0.9% AD-VAN 50ML 50 ML IV SCH (10:27)
[2018-01-20] MEDS: LABETALOL HCL 100 MG TAB PO SCH ×2 (20:09→22:26)
[2018-01-21] VITALS (12 sets, daily range): BP systolic 150–169; BP diastolic 94–106; PULSE 67–100; TEMP 36.6–39.2; O2SAT 96–99
[2018-01-21] MEDS: ENOXAPARIN 80 MG/0.8 ML SYR SQ SCH ×2 (00:55→13:06)
[2018-01-21] MEDS: IBUPROFEN 600 MG TAB PO PRN ×3 (04:55→20:29)
[2018-01-21] MEDS: BUTALBITAL/ACETAMIN/CAFFEINE TAB PO PRN ×3 (05:44→20:30)
[2018-01-21 07:17] LABS: HEMATOCRIT 27.7 % (37-47); HEMOGLOBIN 9.2 g/dL (12.0-16.0); MEAN CELL VOLUME 90.8 fL (80-100); MEAN CORPUSCULAR HEMOGLOBIN 30.2 pg (25-34); MEAN CORPUSCULAR HGB CONC 33.2 g/dl (32-36); MEAN PLATELET VOLUME 9.2 fL (7.4-10.4); PLATELET COUNT 343 K/uL (130-400); RED CELL DISTRIBUTION WIDTH CV 13.8 % (11.5-14.5); RED CELL DISTRIBUTION WIDTH SD 45.9 fL (36.4-46.3); WHITE BLOOD COUNT 21.82 K/uL (4.8-10.8)
--- NOTE | 2018-01-21 07:19 | OB/GYN Progress Note ---
CROWNING INSPECTOR Progress Note Date of Service Jan 21, 2018. Subjective conversation w/ patient, physical exam, chart review, lab review Ambulation: ambulating normally Review of Systems Constitutional: + fever Objective Vital Signs Date Time Temp Pulse Resp B/P (MAP) Pulse Ox O2 Delivery O2 Flow Rate FiO2 01/21/18 06:25 38.0 01/21/18 05:40 38.8 89 18 153/94 (113) 96 Room Air 01/21/18 04:30 39.2 100 18 153/96 (115) 96 Room Air 01/20/18 23:25 95 Room Air 01/20/18 23:25 37.0 70 18 148/89 (108) 95 Room Air 01/20/18 22:24 145/91 (109) 01/20/18 21:10 36.6 79 16 119/75 (90) 99 Room Air 01/20/18 20:08 37.6 86 17 167/117 (134) 99 Room Air 01/20/18 16:25 38.2 01/20/18 15:10 38.4 01/20/18 15:07 38.4 82 16 168/101 (123) 98 Room Air 01/20/18 15:07 Room Air 01/20/18 14:20 37.6 01/20/18 11:50 36.8 70 20 157/95 (115) 98 Room Air 01/20/18 07:45 36.6 59 20 154/99 (117) 96 Room Air 01/20/18 07:45 96 Room Air Physical Exam General Appearance: NO APPARENT DISTRESS Abdomen: non tender, soft Fundus: Firm Extremities: no calf tenderness Laboratory Results Last 24 Hours Test 01/21/18 06:58 Assessment and Plan Day Number: Continue Routine Care: -Patient empirically diagnosed with septic pelvic thrombophlebitis -Patient now day #2 of anticoagulation with Lovenox -Patient went 18 hours before spiking a temp to 38. -Patient spiked a temperature this a.m. to 39 -Continued no localizing source of infection -Patient off antibiotics. -Blood pressure remains elevated on day #2 of labetalol 100 mg twice daily -Patient very frustrated by the persistence of the fever -Long discussion with the patient about how to proceed. -We will discuss the case today with maternal- medicine in [place]. -Continue Lovenox therapy. -If patient continues to spike despite the anticoagulation, consideration for referral to tertiary care center. -All questions answered of the patient.
[2018-01-21 08:34] LABS: BASO % 0.3 %; BASO ABS # 0.06 K/uL (0-0.2); EOS % 1.1 %; EOS ABS # 0.25 K/uL (0-0.5); IG# 0.46 K/uL (0.00-0.02); LYMPH % 9.1 %; LYMPH ABS # 1.98 K/uL (1.2-3.4); NEUT % 81.4 %; NEUT ABS # 17.77 K/uL (1.4-6.5)
[2018-01-21] MEDS: DOCUSATE SODIUM 100 MG CAP PO SCH ×3 (09:00→20:31)
[2018-01-21] MEDS: SACCHAROMYCES BOUL (FLORASTOR) 250 MG CAP PO SCH (09:10)
[2018-01-21] MEDS: LABETALOL HCL 100 MG TAB PO SCH (09:11)
[2018-01-21] MEDS: ERTAPENEM IV 1 GM in SODIUM CHLOR 0.9% AD-VAN 50ML 50 ML IV SCH (10:06)
[2018-01-21] MEDS ORDERED: LABETALOL HCL 200 MG TAB PO SCH (21:00)
[2018-01-22] VITALS (11 sets, daily range): BP systolic 134–166; BP diastolic 85–106; PULSE 57–83; TEMP 36.6–37.5; O2SAT 97–99
[2018-01-22] MEDS: ENOXAPARIN 80 MG/0.8 ML SYR SQ SCH ×3 (00:33→23:03)
--- NOTE | 2018-01-22 08:22 | Progress Note ---
Progress Note Date of Service Jan 22, 2018. Progress Note S: Patient reports that she is doing well without complaint. Minimal vaginal bleeding. Normal bowel and bladder function. No PIH symptoms. No N/V. O: Vital Signs Past 12 Hours Date Time Temp Pulse Resp B/P (MAP) Pulse Ox O2 Delivery O2 Flow Rate FiO2 01/22/18 07:21 37.5 83 16 161/98 (119) 97 Room Air 01/22/18 03:50 36.8 70 18 149/98 (115) Room Air 01/22/18 00:25 36.7 57 18 141/91 (108) Room Air 01/22/18 00:25 Room Air NAD, AAOx3 RRR Lungs clear Abd: Soft non-tender, non distended, uterus non-tender LE: No calf tenderness A/P: -Patient empirically diagnosed with septic pelvic thrombophlebitis -Patient now day #3 of anticoagulation with Lovenox and day 1 since restart of antibiotic -Patient is currently 18 hours afebrile (T39.2 on 01/21/2018 at 1400) -Continued no localizing source of infection -Blood pressure remains elevated, labetalol increased to 300 mg twice daily -We will discuss the case today with maternal- medicine in [place]. --Will readdress transfer to [facility] if patient continues to be febrile after 48hr since restart of antibiotics
[2018-01-22] MEDS: SACCHAROMYCES BOUL (FLORASTOR) 250 MG CAP PO SCH (08:50)
[2018-01-22] MEDS: LABETALOL HCL 100 MG TAB PO SCH ×2 (08:50→20:55)
[2018-01-22] MEDS: BUTALBITAL/ACETAMIN/CAFFEINE TAB PO PRN ×4 (08:51→23:02)
[2018-01-22] MEDS: DOCUSATE SODIUM 100 MG CAP PO SCH ×2 (08:51→20:55)
[2018-01-22 09:44] LABS: BASO % 0.2 %; BASO ABS # 0.03 K/uL (0-0.2); EOS % 1.9 %; EOS ABS # 0.35 K/uL (0-0.5); HEMATOCRIT 28.7 % (37-47); HEMOGLOBIN 9.7 g/dL (12.0-16.0); IG# 0.51 K/uL (0.00-0.02); LYMPH % 10.7 %; LYMPH ABS # 1.95 K/uL (1.2-3.4); MEAN CELL VOLUME 90.3 fL (80-100); MEAN CORPUSCULAR HEMOGLOBIN 30.5 pg (25-34); MEAN CORPUSCULAR HGB CONC 33.8 g/dl (32-36); MEAN PLATELET VOLUME 8.4 fL (7.4-10.4); MONO % 4.3 %; MONO ABS # 0.79 K/uL (0.11-0.59); NEUT % 80.1 %; NEUT ABS # 14.67 K/uL (1.4-6.5); PLATELET COUNT 328 K/uL (130-400); RED CELL DISTRIBUTION WIDTH CV 13.7 % (11.5-14.5); RED CELL DISTRIBUTION WIDTH SD 45.4 fL (36.4-46.3)
[2018-01-22] MEDS: ERTAPENEM IV 1 GM in SODIUM CHLOR 0.9% AD-VAN 50ML 50 ML IV SCH (09:52)
[2018-01-22 10:23] LABS: CREATININE 0.69 mg/dl (0.60-1.20)
[2018-01-22] MEDS ORDERED: NURSING VERBAL MED ORDER ONE ×2 (11:45→13:45)
[2018-01-22] MEDS ORDERED: LOVENOX TEACHING KIT SCH (12:30)
[2018-01-23 03:30] VITALS: BP 144/93; PULSE 65; TEMP 36.5
[2018-01-23 08:00] VITALS: BP 143/96; PULSE 78; TEMP 36.7; O2SAT 97
[2018-01-23] MEDS: BUTALBITAL/ACETAMIN/CAFFEINE TAB PO PRN ×3 (08:01→20:43)
--- NOTE | 2018-01-23 08:20 | Progress Note ---
Subjective Jan 23, 2018. Subjective conversation w/ patient, physical exam Voiding: no voiding problems Passing Gas: Yes Diet Tolerance: Regular Diet Lochia: Small Pain: no pain Comment: loose stools twice but not watery. Review of Systems Constitutional: No fever, No chills, No sweats, No weight loss, No weakness, No fatigue, No problem reported Female : No see HPI, No dysuria, No urinary frequency, No hematuria, No incontinence, No abnormal vaginal bleeding, No vaginal discharge, No problem reported Objective Vital Signs Date Time Temp Pulse Resp B/P (MAP) Pulse Ox O2 Delivery O2 Flow Rate FiO2 01/23/18 03:30 36.5 65 144/93 (110) 01/22/18 23:25 134/85 (101) 01/22/18 23:00 36.8 71 18 99 Room Air 01/22/18 20:55 146/96 (113) 01/22/18 20:05 98 Room Air 01/22/18 20:05 36.7 64 18 153/106 (122) 98 Room Air 01/22/18 16:10 37.3 66 18 166/96 (119) 98 Room Air 01/22/18 15:45 98 Room Air 01/22/18 15:40 37.5 75 16 161/104 (123) 98 Room Air 01/22/18 11:30 36.6 72 18 151/96 (114) 97 Room Air Physical Exam General Appearance: WELL-APPEARING Abdomen: non tender, soft Fundus: Non-Tender Extremities: no calf tenderness Laboratory Results Last 24 Hours Test 01/22/18 09:32 01/23/18 07:48 White Blood Count 18.30 K/uL Red Blood Count 3.18 M/uL Hemoglobin 9.7 g/dL Hematocrit 28.7 % Mean Corpuscular Volume 90.3 fL Mean Corpuscular Hemoglobin 30.5 pg Mean Corpuscular Hemoglobin Concent 33.8 g/dl Platelet Count 328 K/uL Mean Platelet Volume 8.4 fL Neutrophils (%) (Auto) 80.1 % Lymphocytes (%) (Auto) 10.7 % Monocytes (%) (Auto) 4.3 % Eosinophils (%) (Auto) 1.9 % Basophils (%) (Auto) 0.2 % Neutrophils # (Auto) 14.67 K/uL Lymphocytes # (Auto) 1.95 K/uL Monocytes # (Auto) 0.79 K/uL Eosinophils # (Auto) 0.35 K/uL Basophils # (Auto) 0.03 K/uL RDW Standard Deviation 45.4 fL RDW Coefficient of Variation 13.7 % Immature Granulocyte % (Auto) 2.8 % Immature Granulocyte # (Auto) 0.51 K/uL Creatinine 0.69 mg/dl Est Creatinine Clear Calc Drug Dose 117.3 ml/min Estimated GFR () 131.6 Estimated GFR (Non- 113.6 Assessment and Plan Problem List Medical Problems: (1) Endometritis Status: Acute (2) Fever Status: Acute (3) Leukocytosis Status: Acute Day#: 6 Continue Routine Care: afebrile now for 36 hours/ BP is stable & decreasing on 300mg labetalol bid will stop lovenox & Zosyn after this evening's dose continue to monitor temp after stopping lovenox
[2018-01-23 08:26] LABS: BASO % 0.5 %; BASO ABS # 0.06 K/uL (0-0.2); EOS % 2.5 %; EOS ABS # 0.33 K/uL (0-0.5); HEMATOCRIT 29.9 % (37-47); HEMOGLOBIN 9.9 g/dL (12.0-16.0); IG# 0.63 K/uL (0.00-0.02); LYMPH % 14.9 %; LYMPH ABS # 1.98 K/uL (1.2-3.4); MEAN CELL VOLUME 91.4 fL (80-100); MEAN CORPUSCULAR HEMOGLOBIN 30.3 pg (25-34); MEAN CORPUSCULAR HGB CONC 33.1 g/dl (32-36); MEAN PLATELET VOLUME 9.2 fL (7.4-10.4); NEUT % 71.4 %; NEUT ABS # 9.47 K/uL (1.4-6.5); NUCLEATED RED BLOOD CELL ABS 0.03 K/uL (0-0); PLATELET COUNT 405 K/uL (130-400); RED CELL DISTRIBUTION WIDTH CV 13.7 % (11.5-14.5); RED CELL DISTRIBUTION WIDTH SD 45.9 fL (36.4-46.3); WHITE BLOOD COUNT 13.27 K/uL (4.8-10.8)
[2018-01-23] MEDS: SACCHAROMYCES BOUL (FLORASTOR) 250 MG CAP PO SCH (09:26)
[2018-01-23] MEDS: LABETALOL HCL 100 MG TAB PO SCH ×2 (09:27→20:42)
[2018-01-23] MEDS: ENOXAPARIN 80 MG/0.8 ML SYR SQ SCH ×2 (09:28→20:42)
[2018-01-23] MEDS: ERTAPENEM IV 1 GM in SODIUM CHLOR 0.9% AD-VAN 50ML 50 ML IV SCH (10:17)
[2018-01-23] MEDS: DOCUSATE SODIUM 100 MG CAP PO SCH ×2 (11:48→20:41)
[2018-01-23 12:05] VITALS: BP 138/90; PULSE 72; TEMP 36.6; O2SAT 97
[2018-01-23 15:48] VITALS: BP 150/95; PULSE 63; TEMP 36.7; O2SAT 96
[2018-01-23 19:51] VITALS: BP 149/100; PULSE 76; TEMP 36.8; O2SAT 97
[2018-01-23 20:40] VITALS: BP 149/95; PULSE 67
[2018-01-24 00:30] VITALS: BP 135/89; PULSE 62; TEMP 36.4; O2SAT 98
--- NOTE | 2018-01-24 04:28 | Discharge Instructions ---
Discharge Instructions Date of Service Jan 24, 2018. Admission Reason for Admission: Endometritis Discharge Discharge Diagnosis / Problem: septic pelvic thrombophlebitis Discharge Goals Goal(s): Continuing CRISIS MENTAL HEALTH THERAPIST care Activity Recommendations Activity Limitations: resume your previous activity Driving or Machine Use: no limitations . Instructions / Follow-Up Instructions / Follow-Up She needs office visit & BP check in 1 week. Please call the office to get an appointment. Current Hospital Diet Patient's current hospital diet: Regular OB Diet Discharge Diet Recommended Diet: Regular OB Diet Pending Studies Studies pending at discharge: no Medical Emergencies . Who to Call and When: Medical Emergencies: If at any time you feel your situation is an emergency, please call 911 immediately. . Non-Emergent Contact Non-Emergency issues call your: Laundry Technician Call Non-Emergent contact if: temperature is above 101 . . "Provider Documentation" section prepared by Samantha Gramajo PA Drug Monitoring Program Search Results: no issues identified
[2018-01-24 04:30] VITALS: BP 139/94; PULSE 68; TEMP 36.8
[2018-01-24] MEDS ORDERED: LBT100 PO (04:30)
[2018-01-24 07:40] LABS: BASO % 0.6 %; BASO ABS # 0.08 K/uL (0-0.2); EOS % 2.4 %; EOS ABS # 0.31 K/uL (0-0.5); HEMATOCRIT 32.7 % (37-47); HEMOGLOBIN 10.6 g/dL (12.0-16.0); IG# 0.52 K/uL (0.00-0.02); LYMPH % 16.1 %; MEAN CELL VOLUME 91.1 fL (80-100); MEAN CORPUSCULAR HEMOGLOBIN 29.5 pg (25-34); MEAN CORPUSCULAR HGB CONC 32.4 g/dl (32-36); MEAN PLATELET VOLUME 8.7 fL (7.4-10.4); MONO % 3.8 %; MONO ABS # 0.49 K/uL (0.11-0.59); NEUT % 73.1 %; NEUT ABS # 9.56 K/uL (1.4-6.5); PLATELET COUNT 410 K/uL (130-400); RED CELL DISTRIBUTION WIDTH CV 13.7 % (11.5-14.5); RED CELL DISTRIBUTION WIDTH SD 45.6 fL (36.4-46.3); WHITE BLOOD COUNT 13.06 K/uL (4.8-10.8)
--- NOTE | 2018-01-24 07:57 | Progress Note ---
Subjective Jan 24, 2018. Subjective conversation w/ patient Ambulation: ambulating normally Voiding: no voiding problems Passing Gas: Yes Diet Tolerance: Regular Diet Lochia: Small Feeding Type: Breast Feeding Review of Systems Constitutional: No fever, No chills, No sweats, No weight loss, No weakness, No fatigue, No problem reported Abdomen: No pain, No nausea, No vomiting, No diarrhea, No constipation, No GI bleeding, No problem reported Objective Vital Signs Date Time Temp Pulse Resp B/P (MAP) Pulse Ox O2 Delivery O2 Flow Rate FiO2 01/24/18 04:30 36.8 68 18 139/94 (109) 01/24/18 00:30 98 Room Air 01/24/18 00:30 36.4 62 18 135/89 (104) 98 Room Air 01/23/18 20:40 67 149/95 (113) 01/23/18 19:51 36.8 76 18 149/100 (116) 97 Room Air 01/23/18 15:48 36.7 63 18 150/95 (113) 96 Room Air 01/23/18 15:48 96 Room Air 01/23/18 12:05 36.6 72 16 138/90 (106) 97 01/23/18 08:00 97 Room Air 01/23/18 08:00 36.7 78 18 143/96 (112) 97 Room Air Physical Exam General Appearance: WELL-APPEARING, NO APPARENT DISTRESS Abdomen: non tender, soft Fundus: Firm, Non-Tender Extremities: no calf tenderness Laboratory Results Last 24 Hours Test 01/23/18 07:48 01/24/18 07:28 White Blood Count 13.27 K/uL 13.06 K/uL Red Blood Count 3.27 M/uL 3.59 M/uL Hemoglobin 9.9 g/dL 10.6 g/dL Hematocrit 29.9 % 32.7 % Mean Corpuscular Volume 91.4 fL 91.1 fL Mean Corpuscular Hemoglobin 30.3 pg 29.5 pg Mean Corpuscular Hemoglobin Concent 33.1 g/dl 32.4 g/dl Platelet Count 405 K/uL 410 K/uL Mean Platelet Volume 9.2 fL 8.7 fL Neutrophils (%) (Auto) 71.4 % 73.1 % Lymphocytes (%) (Auto) 14.9 % 16.1 % Monocytes (%) (Auto) 6.0 % 3.8 % Eosinophils (%) (Auto) 2.5 % 2.4 % Basophils (%) (Auto) 0.5 % 0.6 % Neutrophils # (Auto) 9.47 K/uL 9.56 K/uL Lymphocytes # (Auto) 1.98 K/uL 2.10 K/uL Monocytes # (Auto) 0.80 K/uL 0.49 K/uL Eosinophils # (Auto) 0.33 K/uL 0.31 K/uL Basophils # (Auto) 0.06 K/uL 0.08 K/uL RDW Standard Deviation 45.9 fL 45.6 fL RDW Coefficient of Variation 13.7 % 13.7 % Immature Granulocyte % (Auto) 4.7 % 4.0 % Immature Granulocyte # (Auto) 0.63 K/uL 0.52 K/uL Nucleated RBC Absolute Count (auto) 0.03 K/uL Nucleated Red Blood Cells % 0.2 % Assessment and Plan Problem List Medical Problems: (1) Endometritis Status: Acute (2) Fever Status: Acute (3) Leukocytosis Status: Acute Day#: 7 Continue Routine Care: septic pelvic thrombophlebitis afebrile now for over 60 hours last dose of Lovenox was last night. CBC pending- if White count is in normal range, the Zosyn will be d/c'd and she will then be observed until this evening. follow up in 1 week for both BP & Septic Pelvic Thrombophlebitis. scripts for Labetalol & fioricet sent to pharmacy. take temp daily & report temp >101. will have her follow up with Dr. Ac for her BP as well this week as it has been difficult to control.
[2018-01-24 08:00] VITALS: BP 143/95; PULSE 82; TEMP 36.7; O2SAT 98
[2018-01-24] MEDS ORDERED: FRCT/ PO (08:10)
[2018-01-24] MEDS: DOCUSATE SODIUM 100 MG CAP PO SCH (08:21)
[2018-01-24] MEDS: LABETALOL HCL 100 MG TAB PO SCH (08:21)
[2018-01-24] MEDS: SACCHAROMYCES BOUL (FLORASTOR) 250 MG CAP PO SCH (08:21)
[2018-01-24] MEDS: BUTALBITAL/ACETAMIN/CAFFEINE TAB PO PRN (08:22)
[2018-01-24 12:30] VITALS: BP 121/83; PULSE 81; TEMP 36.4; O2SAT 98
[2018-01-24 14:45] VITALS: BP 142/96; PULSE 69; TEMP 36.4; O2SAT 98
[2018-01-24 14:57] VITALS: BP 142/96; PULSE 69; TEMP 36.4; O2SAT 98
--- NOTE | 2018-01-24 15:21 | DISCHARGE SUMMARY ---
ADMITTING DIAGNOSES: Presumed endometritis. DISCHARGE DIAGNOSES: 1. Septic pelvic thrombophlebitis. 2. hypertension. CONSULTATIONS: Infectious disease. DISCHARGE MEDICATIONS: Labetalol 300 mg p.o. b.i.d. ADMISSION HISTORY: The patient is a 32-year-old 1, para 1, status post a normal spontaneous delivery on 01/11/2018, who is admitted from the Emergency Room with presumed endometritis. The patient called on the day of admission with shaking chills and fevers at home. The shaking fevers and chills have been going on since day #3. The patient spiked on the day of discharge and on the evening of discharge between 101 and 102. She had no localizing sources of infection at that time. She called on day #3 and was empirically treated with p.o. Augmentin, which she had been on for 48 hours prior to admission. Despite the p.o. Augmentin, she continued to have shaking fevers and chills. Otherwise, the patient states that she feels fine. She is not complaining of any respiratory symptoms. She is not having any dysuria. She was having some generalized lower back pain. Patient is not complaining of any lower abdominal cramping. She is not complaining of unusual bleeding. She is not complaining of any dysuria or urinary frequency. The patient presented to the emergency room where an elevated fever and white count were documented, and she was admitted with the presumed diagnosis of endometritis. PHYSICAL EXAMINATION: GENERAL: Admission physical showed a pleasant female, in no acute distress. VITAL SIGNS: Blood pressure 156/89 and a temperature of 39.0 centigrade. HEENT: Unremarkable. NECK: Supple. LUNGS: Clear. HEART: With a regular rhythm and rate. ABDOMEN: Soft, nontender, with no palpable masses, no rebound, no guarding, no organomegaly. Positive bowel sounds. PELVIC: Deferred. EXTREMITIES: Exam showed no deep calf tenderness. NEUROLOGIC: Grossly intact. LABORATORY DATA: Admission laboratory values showed a white blood cell count of 23,000 and H and H of 9.6 and 27.4. HOSPITAL COURSE: The patient with the spiking fevers and chills despite oral antibiotics was presumed to have endometritis. There were no other localizing signs of infection. As such, she was started on broad spectrum triple antibiotics consisting of ampicillin, gentamicin, and clindamycin. Gentamicin dosing was given to the pharmacy. It was felt that this was endometritis. The patient should defervesce over the next 24-48 hours. On hospital day #1, triples were continued. The patient continued to have temperature spikes to greater than 39, but there was a decrease in white count. Again, no localizing source of infection. On hospital day #2, the patient continued triple antibiotics but was continuing to spike. Because of this, she had a CAT scan of the abdomen, pelvis, and chest. The pelvic ultrasound showed no collections of fluid, no evidence of thrombosis, no evidence of retained products of conception. On the chest CT, there was some fluid that was felt to be secondary to volume overload. Because the patient was spiking through 48 hours of triple antibiotics, infectious disease was consulted. Infectious disease changed the patient's antibiotics from triple therapy to IV Zosyn therapy. Infectious disease agreed with the diagnosis of endometritis. On hospital day #3, the patient continued to have spiking temperatures despite the antibiotics, her white count which had been showing a downward trend had increased. At this point, after 4 days of therapeutic antibiotics and continued spiking, a diagnosis was now made of presumed septic thrombophlebitis. Recommendations for this were anticoagulation, and the patient was started on Lovenox 80 mg subcu b.i.d. On hospital day #4, the patient's fever had stopped and had come back to normal on the Lovenox. At that point, the Zosyn was discontinued. It was also noted at this point that the patient has had a persistently elevated blood pressure, which predated back to her state. Because of the elevated blood pressure that had continued over 4 days of hospitalization, she was started on labetalol 100 mg p.o. b.i.d. for presumed gestational hypertension. On day #5, the patient again spiked on the Lovenox therapy. The case was discussed with maternal medicine in [place], who recommended restarting the IV Zosyn until the patient had been afebrile for 48 hours. On hospital day 6, the patient was afebrile after the antibiotics were restarted. Her blood pressure remained elevated, and her labetalol was increased to 300 mg b.i.d. On day #7, the patient had been afebrile for 48 hours, and the Zosyn and the Lovenox were discontinued. On hospital day #8, the patient was discharged home after being afebrile for over 24 hours. The patient is going to follow up with her primary care provider because of the persistently elevated blood pressures despite the labetalol 300 mg p.o. b.i.d. She is going to follow up in our office in 48-72 hours after discharge. All other discharge instructions were reviewed with the patient. All questions answered, and she will follow up as listed above.
[2018-01-24] MEDS ORDERED: AMOXICILLIN/CLAVULANATE TAB 875 MG TAB PO SCH (17:30)
== END 2018-01-24 15:07 | disposition home or self-care (01) | DRG 776 ==
LOC: C.EDB 13:16 → C.MS4N 14:59 → ENRESERV 15:46 → OBSVTOIN 01-17 07:45
PROVIDERS: ADMIT Obstetrics & Gynecology; ATTEND Obstetrics & Gynecology
DX: O87.1 Deep phlebothrombosis in the puerperium (principal); O86.81 Puerperal septic thrombophlebitis; O13.5 Gestational [pregnancy-induced] hypertension without significant proteinuria, complicating the puerperium; O99.285 Endocrine, nutritional and metabolic diseases complicating the puerperium; E87.70 Fluid overload, unspecified; O99.89 Other specified diseases and conditions complicating pregnancy, childbirth and the puerperium; H92.01 Otalgia, right ear; M54.2 Cervicalgia

== ENCOUNTER 2020-05-26 04:04 | Inpatient (IN) ==
[2020-05-26 05:38] LABS: Hematocrit (blood only) 37.9 % (37-47); Hemoglobin 12.6 g/dL (12.0-16.0); Mean Corpuscular Hemoglobin 29.6 pg (25-34); Mean Corpuscular Volume 89.2 fL (80-100); Mean Platelet Volume 11.1 fL (7.4-10.4); Platelet Count 211 K/uL (130-400); RDW Coefficient of Variation 13.6 % (11.5-14.5); RDW Standard Deviation 43.9 fL (36.4-46.3); Red Blood Count 4.25 M/uL (4.2-5.4); White Blood Count 13.19 K/uL (4.8-10.8)
[2020-05-26 05:39] LABS: Mean Corpuscular Hgb Conc 33.2 g/dL (32-36)
--- NOTE | 2020-05-26 06:21 | Labor Progress Brief Note ---
Date of Service May 26, 2020 Subjective 34yo at 40w5d called at 0330 with c/o gush of clear fluid, with ongoing blood tinged fluid leakage. Had sex tonight as well. +FM no contractions. She arrived to L&D an hour or so later, and nurses called me at about 0500 to report she was 5-6cm with a bulging bag, no gross leakage, but an amnisure was weakly positive. At that point she was margarita Q2-3min and painful, as well, so she was admitted for SROM/Labor. She desired NCB. On my arrival to L&D the patient was tolerating contractions with breathing techniques, had spontaneously ruptured the forebag for copious [id number]-[id number]-[id number] fluid, and continued to desire NCB. Assessment & Plan (1) Normal labor and delivery: Patient in spontaneous labor with SROM at 40w5d, thick meconium, and at the moment the vertex is in LOT position. Discussed with the patient the concerns with this, including that the head will need to rotate to A/P position for delivery, and while there remains poor application of the head to the cervix, cord prolapse is a possibility. Discussed remaining in bed and monitored so we can detect this immediately if it were to occur. On-call anesthesia for tonight is noted to be Rolly but it's a weekend and day coverage is Joleen, who typically stays in-house throughout his weekend calls. Admission and Anticipated Discharge Date Admission Date: May 26, 2020 Physical Exam Physical Exam: 8/90/-2, cervix very loose and floppy without a well-applied presenting part. What feels like skull was palpable very anterior with "free space" posteriorly. LOF with thick meconium continued. FHT 150 mod talib +acc and, starting after the vaginal exam, early decels also present. Patient is margarita spontaneously Q2min. Bedside US done due to the unusual position of the presenting part does confirm vertex presentation, head currently is LOT and very anterior and appears to have a hand alongside the posterior aspect of the neck / lower face. Results & Data ([facility]) Vital Signs (Past 12 Hours) Vital Signs Temp Pulse Resp BP 05/26/20 04:40 87 135/87 05/26/20 04:28 98.4 F 18 05/26/20 04:24 86 129/93 Laboratory Results Vital Signs Temp Pulse Resp BP 05/26/20 04:40 87 135/87 05/26/20 04:28 98.4 F 18 05/26/20 04:24 86 129/93 Intake and Output 05/25/20 05/25/20 05/26/20 14:59 22:59 06:59 Other: Weight 190 lb Weight Measurement Method Last Office Visit Patient Weight 05/26/20 06:59 Weight 190 lb Laboratory Results - last 24 hr 05/26/20 05/26/20 05/26/20 05:10 05:10 05:25 WBC RBC Hgb Hct MCV MCH MCHC RDW Std Deviation RDW Coeff of Talib Plt Count MPV Amniotic Protein POS COVID-19 [facility] SARS-[facility]-2, RNA, NAAT NEGATIVE 05/26/20 05:26 WBC 13.19 H RBC 4.25 Hgb 12.6 Hct 37.9 MCV 89.2 MCH 29.6 MCHC 33.2 RDW Std Deviation 43.9 RDW Coeff of Talib 13.6 Plt Count 211 MPV 11.1 H Amniotic Protein COVID-19 Eval Order SARS-CoV-2, RNA, NAAT Coding Level of Care Code None Diagnoses Normal labor and delivery O80
[2020-05-26] MEDS: LACTATED RINGER'S 1,000 ML IV PRN ×2 (06:23→20:26)
[2020-05-26] MEDS ORDERED: LIDOCAINE HCL 1% 20 ML VIAL ONE (06:36)
[2020-05-26] MEDS: OXYTOCIN 30 UNITS/500 ML BAG IV PRN ×2 (06:38→07:23)
[2020-05-26] MEDS ORDERED: DIPHTHERIA/TETANUS/PERTUSSIS 0.5 ML SYR/VIAL IM ONE (06:56)
[2020-05-26] MEDS ORDERED: ACETAMINOPHEN 325 MG TAB PO PRN (06:56)
[2020-05-26] MEDS ORDERED: SUPERCREAM 0.870% 15 GM JAR EXT PRN (06:56)
[2020-05-26] MEDS ORDERED: oxyCODONE/ACETAMINOPHEN 5mg/325mg TAB PO PRN (06:56)
[2020-05-26] MEDS ORDERED: BENZOCAINE 20% AER SPR 82.5 GM CAN EXT PRN (06:56)
[2020-05-26] MEDS ORDERED: HYDROCORTISONE ACETATE 25 MG SUPP PR PRN (06:56)
--- NOTE | 2020-05-26 06:57 | Delivery Summary ---
Vaginal Delivery Summary Date of Service May 26, 2020 Vaginal Delivery Summary DIAGNOSES: 1. Phillip intrauterine at 40w5d gestation. 2. Spontaneous onset of labor. 3. Group B Streptococcus Neg. PROCEDURE: Spontaneous vaginal delivery and repair of first degree laceration. SURGEON: Marta Ayala MD. SOFTWARE DESIGN ANALYST: None. ESTIMATED BLOOD LOSS: 300 mL. COMPLICATIONS: None. PLACENTA: Spontaneous and intact with a 3-vessel cord. DISPOSITION: Stable to labor and delivery. DESCRIPTION: The patient pushed well and brought the head to in CHRISTIAN position. The infant's head was allowed to deliver with contraction force and no further active pushing, with the perineum protected during this time. There was a tight nuchal cord which was reduced at the perineum. The shoulders did not deliver with the first maternal push; palpation revealed that the shoulders remained in a transverse position. These were gently rotated into an A/P position and with the next maternal effort, they easily delivered. The right shoulder was anterior. The shoulders and body delivered without any difficulty, and the infant was placed on the maternal abdomen where bulb suction was provided due to thick meconium. \The cord was doubly clamped by the MD and then cut by the FOB. The was then taken to the warmer for deep suction and attention, though it was already making excellent respiratory effort and appeared vigorous. The placenta delivered spontaneously and was noted to be intact and with a 3VC but also had significant meconium staining. The cervix, vagina and perineum were examined and were found to have a first degree laceration. This was infiltrated with lidocaine and repaired with 3-0 vicryl in a running locked manner. The fundus was firm and lochia minimal immediately after delivery. [facility] Vaginal Delivery Charge Vaginal Delivery Codes: 98275 global code for the antepartum, delivery, and post-
[2020-05-26] MEDS: PRENATAL VITAMIN 1 TAB PO SCH (07:54)
[2020-05-26] MEDS: DOCUSATE SODIUM 100 MG CAP PO SCH ×2 (07:54→22:10)
[2020-05-26] MEDS ORDERED: OXYTOCIN 30 UNITS in LACTATED RINGER'S 1,000 ML IV SCH (10:15)
[2020-05-26] MEDS: IBUPROFEN 600 MG TAB PO PRN (18:46)
[2020-05-27] MEDS: LACTATED RINGER'S 1,000 ML IV PRN (03:55)
[2020-05-27 06:36] LABS: Hematocrit (blood only) 27.5 % (37-47); Hemoglobin 9.3 g/dL (12.0-16.0); Mean Corpuscular Hemoglobin 29.8 pg (25-34); Mean Corpuscular Hgb Conc 33.8 g/dL (32-36); Mean Corpuscular Volume 88.1 fL (80-100); Mean Platelet Volume 10.5 fL (7.4-10.4); Platelet Count 180 K/uL (130-400); RDW Coefficient of Variation 13.8 % (11.5-14.5); RDW Standard Deviation 44.3 fL (36.4-46.3); Red Blood Count 3.12 M/uL (4.2-5.4); White Blood Count 13.41 K/uL (4.8-10.8)
--- NOTE | 2020-05-27 07:06 | Labor Progress Brief Note ---
Date of Service May 27, 2020 Subjective Pain well controlled, ambulating, voiding, lochia now minimal "just a spot when I went to the bathroom this morning." plus supplementing with formula. Desires D/C home today if possible. Assessment & Plan (1) Normal labor and delivery: PP Day 1 and doing well, desires D/C, instructions reviewed and OK to go from OB perspective. Admission and Anticipated Discharge Date Admission Date: May 26, 2020 Physical Exam Constitutional: WD/WN, vitals as above Eyes: PERRL, conjunctivae normal, anicteric sclerae Neck: normal visual inspection Respiratory: normal respiratory effort and able to speak in complete sentences; no respiratory distress and no labored breathing Cardiovascular: Rate/Rhythm: regular rate and regular rhythm Extremities: no edema Chest (Breasts): Chest: normal inspection of chest Gastrointestinal (Abdomen): Inspection/Auscultation: abdomen normal to inspection Soft, postgravid Psychiatric: A+Ox3, euthymic affect Genitourinary: OB Exam Abdomen: + fundal height Fundus: + firm and + relation to umbilicus (fundus just below umbilicus); not tender Results & Data ([facility]) Vital Signs (Past 12 Hours) Vital Signs Temp Pulse Pulse Resp BP Pulse Ox 05/27/20 03:00 98.2 F 86 20 125/78 98 05/26/20 23:35 98.1 F 86 18 116/73 98 05/26/20 20:15 97.9 F 93 H 17 112/72 98 Laboratory Results Laboratory Results - last 24 hr 05/27/20 06:08 WBC 13.41 H RBC 3.12 L Hgb 9.3 L D Hct 27.5 L MCV 88.1 MCH 29.8 MCHC 33.8 RDW Std Deviation 44.3 RDW Coeff of Talib 13.8 Plt Count 180 MPV 10.5 H Coding Level of Care Code None Diagnoses Normal labor and delivery O80
[2020-05-27] MEDS: PRENATAL VITAMIN 1 TAB PO SCH (07:30)
[2020-05-27] MEDS: DOCUSATE SODIUM 100 MG CAP PO SCH (07:30)
[2020-05-27] MEDS: IBUPROFEN 600 MG TAB PO PRN (07:45)
== END 2020-05-27 10:45 | disposition home or self-care (01) | DRG 807 ==
LOC: OPB 04:04 → 4S1 04:11 → 4S2 10:15

== ENCOUNTER 2020-05-28 10:29 | Inpatient (IN) ==
[2020-05-28 11:49] LABS: Appearance Urine Clear (Clear); Bacteria Urine Automated Negative (Negative); Basophils # (auto) 0.01 K/uL (0-0.2); Bilirubin Urine Negative (Negative); Blood Urine 3+ (Negative); Cast Urine Automated 0 /lpf (0-5); Color Urine Yellow; Eosinophils # (auto) 0.04 K/uL (0-0.5); Eosinophils % (auto) 0.2 %; Epithelial Cell Urine Auto 20-30 /lpf (0-5); Glucose Urine UA Negative (Negative); Hematocrit (blood only) 32.4 % (37-47); Hemoglobin 11.1 g/dL (12.0-16.0); Immature Granulocytes # (auto) 0.04 K/uL (0.00-0.02); Immature Granulocytes % (auto) 0.2 %; Ketones Urine Negative (Negative); Leukocyte Esterase Urine 2+ (Negative); Lymphocytes # (auto) 1.62 K/uL (1.2-3.4); Lymphocytes % (auto) 7.2 %; Mean Corpuscular Hemoglobin 30.5 pg (25-34); Mean Corpuscular Hgb Conc 34.3 g/dL (32-36); Mean Platelet Volume 10.6 fL (7.4-10.4); Monocytes # (auto) 1.91 K/uL (0.11-0.59); Monocytes % (auto) 8.5 %; Neutrophils # (auto) 18.82 K/uL (1.4-6.5); Neutrophils % (auto) 83.9 %; Nitrite Urine Negative (Negative); Platelet Count 225 K/uL (130-400); Protein Urine Negative (Negative); RBC Urine Automated >30 /hpf (0-4); RDW Standard Deviation 45.6 fL (36.4-46.3); Red Blood Count 3.64 M/uL (4.2-5.4); Urobilinogen Urine Negative (Negative); WBC Urine Automated >30 /hpf (0-5); White Blood Count 22.44 K/uL (4.8-10.8); pH Urine >= 9.0 (4.5-7.5)
[2020-05-28 11:57] LABS: Partial Thromboplastin Time 27.4 Seconds (21.0-31.0); Prothrombin Time 10.3 Seconds (9.0-12.0)
[2020-05-28 12:06] LABS: Albumin Level 2.7 gm/dl (3.4-5.0); BUN Creatinine Ratio 8.8 (10-20); Calcium 8.8 mg/dl (8.5-10.1); Creatinine Clr Calc Pharmacy 111.7 ml/min; Est GFR (African American) 129.2; Est GFR (Non-African American) 111.5; Magnesium 2.2 mg/dl (1.8-2.4); Potassium 3.6 mmol/L (3.5-5.1)
[2020-05-28 12:11] LABS: Albumin Globulin Ratio 0.6 (0.9-2); Bilirubin,Total 0.4 mg/dl (0.2-1); C Reactive Protein 11.8 mg/dl (0-0.29); Ferritin 27.7 ng/ml (8-388); Globulin 4.3 gm/dl (2.5-4.0)
--- NOTE | 2020-05-28 12:37 | XRay Report ---
XR chest 1V portable CLINICAL HISTORY: Sepsis. COMPARISON STUDY: Chest CT January 18, 2018. FINDINGS: Lung volumes are normal. Lungs are clear. There is no pneumothorax or pleural effusion. Car diac size is normal. Mediastinal contours are normal. There is no evidence for pulmonary edema. IMPRESSION: No acute cardiopulmonary findings. ACT 112: Negative or not required by law. Electronically signed by: Jared Ugalde M.D. 05/28/2020 12:36 PM
[2020-05-28] MEDS ORDERED: ERTAPENEM SODIUM 10 ML IV STA (12:42)
[2020-05-28] MEDS ORDERED: IOVERSOL 100ml IV ONE (12:56)
--- NOTE | 2020-05-28 13:16 | CT Scan Report ---
CT abd pelvis IV con only CLINICAL HISTORY: Elevated white count. Filling of sepsis. Recent vaginal delivery. COMPARISON STUDY: None. TECHNIQUE: Patient was scanned in a dynamic helical fashion during intravenous administration of 94 c c of Optiray 320. A dose lowering technique was utilized adhering to the principles of ALARA. CT DOSE: 575.29 mGy.cm FINDINGS: Lower chest: The heart is normal in size and configuration, without pericardial effusion. The lung ba ses and pleural spaces are clear. Liver: The contrast-enhanced liver is normal in size, contour, and attenuation. There is no intrahepa tic biliary ductal dilatation. The hepatic veins and portal veins are patent. Gallbladder: Unremarkable. Spleen: Normal in size and attenuation. Pancreas: Unremarkable. Adrenal glands: Unremarkable. Kidneys: There is symmetric renal cortical enhancement. The kidneys are normal in size without hydron ephrosis. Bowel: There are no transition zones indicate bowel obstruction. There is no evidence of acute divert iculitis. The appendix appears normal. Peritoneum: There is no intraperitoneal free air or abdominal ascites. There is a bowel containing um bilical hernia. There is no obstruction. Vasculature: The abdominal aorta is normal in course and caliber. Adenopathy: There is no pathologic adenopathy Pelvic viscera: The uterus is enlarged consistent with a recent state. The anterior myomet rium is hypervascular. There are prominent periuterine vessels. Skeletal structures: No destructive osseous lesions are seen. IMPRESSION: 1. No evidence of bowel obstruction. No evidence of free air 2. Normal appendix. No evidence of acute diverticulitis 3. Bowel containing umbilical hernia. No evidence of obstruction 4. Enlarged uterus consistent with a state. There is anterior myometrial hypervascularity and prominent periuterine vessels. ACT 112: Negative or not required by law. Electronically signed by: Senthil Nathan M.D. 05/28/2020 1:15 PM
--- NOTE | 2020-05-28 13:27 | Ultrasound Report ---
PELVIC ULTRASOUND CLINICAL HISTORY: recent delivery COMPARISON STUDY: OB ultrasound January 08, 2020. TECHNIQUE: Transabdominal and transvaginal sonography of the pelvis was performed. FINDINGS: Uterus measures 17.9 x 6.5 x 10.6 cm. There is prominent vascularity of the anterior myomet rium of the uterus. In addition, there is a thickened, heterogeneous endometrium that measures up to 1.8 cm in thickness within the lower uterine segment. The ovaries were not visualized. No adnexal mas s was identified. IMPRESSION: 1. Thickened endometrium, predominantly within the lower uterine segment and cervix without increased vascularity which could reflect blood products. However, increased vascularity within the anterior m yometrium. These findings can be within normal limits in the early setting however other e tiologies such as endometritis or retained products of conception could appear similar. 2. Nonvisualization of the ovaries. No adnexal masses. No free fluid. ACT 112: Negative or not required by law. Electronically signed by: Jared Ugalde M.D. 05/28/2020 1:26 PM
--- NOTE | 2020-05-28 15:09 | Electrocardiogram Report ---
Test Reason : Blood Pressure : / mmHG Vent. Rate : 117 BPM Atrial Rate : 117 BPM P-R Int : 166 ms QRS Dur : 078 ms QT Int : 302 ms P-R-T Axes : 037 094 046 degrees QTc Int : 421 ms Poor data quality, interpretation may be adversely affected Sinus tachycardia Rightward axis Borderline ECG When compared with ECG of 04-AUG-2016 18:47, Vent. rate has increased BY 49 BPM Confirmed by Nicholas Matute ([id number]) on 05/28/2020 3:09:26 PM Referred By: Confirmed By:Tex Matute
[2020-05-28] MEDS ORDERED: ONDANSETRON INJ 2 MG/ML 2 ML VIAL IV PRN (16:09)
[2020-05-28] MEDS ORDERED: MAGNESIUM HYDROXIDE SUSP 30 ML UDC PO PRN (16:09)
[2020-05-28] MEDS ORDERED: ZOLPIDEM TARTRATE 5 MG TAB PO PRN (16:09)
[2020-05-28] MEDS ORDERED: PIPERACILL/TAZOBAC CONSULT ACTIVE PRN (16:09)
[2020-05-28] MEDS ORDERED: PIPERACILLIN/TAZOBACTAM 3.375 GM in DEXTROSE 5% 100 ML IV ONE (16:30)
--- NOTE | 2020-05-28 18:53 | History and Physical Report ---
DATE OF CONSULTATION: 05/28/2020 EMERGENCY DEPARTMENT CONSULTATION NOTE REASON FOR CONSULT: Fevers noted at home and elevated white count at 22,000. BRIEF HISTORY: Arlene is a 34-year-old -0-0-1 who is approximately 2 days from a vaginal delivery without complication. The patient presented to the Emergency Department for noted fevers overnight. The patient reports that overnight, she had temperatures of 101-102 on several occasions occurring between 1:00 a.m. and 3:00 a.m. overnight. The patient reports that she rechecked her temperature this morning and was noted to be in the 98 degree range. The patient denies any other symptoms. Denies any pelvic pain, breast tenderness, abdominal tenderness or pain, and otherwise reports that she is doing well. In the Emergency Department, the patient underwent laboratory and imaging evaluation. Transvaginal ultrasound and CT scan were consistent with normal changes. The patient's white count was noted at greater than 22,000, which is elevated from 13,000 on day #1 . Of note, the patient has a history of pelvic thrombophlebitis on first . COVID test was negative. PAST MEDICAL HISTORY: Significant for history of pelvic thrombophlebitis with first . PAST SURGICAL HISTORY: Noncontributory to current admission. Denies any abdominal surgeries. OBSTETRICAL HISTORY: The patient has a history of 2 vaginal deliveries with most recent delivery 2 days ago. GYNECOLOGIC HISTORY: Noncontributory to current admission. SOCIAL HISTORY: The patient denies any tobacco, alcohol or illicit drug use. FAMILY HISTORY: The patient denies any known family history of hypercoagulable conditions. PHYSICAL EXAMINATION: VITAL SIGNS: Temperature in the Emergency Department of 36.3, blood pressure 123/82, pulse range low 100s to upper 120s, respiratory rate 17-24. The patient is saturating greater than 94% on room air. GENERAL: The patient is well appearing in no acute distress, alert and oriented x3. CARDIAC AND LUNG EXAM: Per Emergency Department physician. ABDOMEN: Soft, nontender, nondistended. Uterus below the umbilicus. BREASTS: Bilateral breast exam was unremarkable with no breast tenderness, erythema, or induration appreciated. PELVIS: There was noted to be moderate uterine tenderness. No palpable cords throughout the pelvis noted. No significant adnexal tenderness. LOWER EXTREMITIES: Unremarkable showing no tenderness or significant edema. ASSESSMENT AND PLAN: Arlene is a 34-year-old 2, para 1, who presents to the Emergency Department with fevers overnight and elevated white count of 22,000 as noted in the Emergency Department today. Imaging was otherwise unremarkable. Exam was notable for moderate uterine tenderness, but was otherwise unremarkable. Elevated temperatures have not been noted in the Emergency Department today with last noted temperature by patient around 3:00 a.m. I believe based on patient's history, this likely represents an early endometritis; pelvic thrombophlebitis is possible, although much less likely despite the patient's history. I discussed with Arlene that we would admit for IV antibiotics for treatment of endometritis, we will start with IV Zosyn as this was what we used with her prior . We will continue to monitor temperatures and if the patient continues to spike, we will have a low threshold for treating for pelvic thrombophlebitis. Discussed that if she does have recurrent thrombo-pelvic phlebitis that a workup for hypercoagulable conditions should be performed in outpatient setting. We will continue Tylenol and Motrin for pain control as needed. Plan of care was discussed with Arlene and all questions were answered to the patient's satisfaction.
[2020-05-28] MEDS ORDERED: SUPERCREAM 0.870% 15 GM JAR EXT PRN (19:45)
[2020-05-28] MEDS: ACETAMINOPHEN 325 MG TAB PO PRN (20:51)
[2020-05-28] MEDS: PIPERACILLIN/TAZOBACTAM 3.375 GM in DEXTROSE 5% 100 ML IV SCH (20:51)
[2020-05-29] MEDS: ACETAMINOPHEN 325 MG TAB PO PRN (03:49)
[2020-05-29] MEDS: PIPERACILLIN/TAZOBACTAM 3.375 GM in DEXTROSE 5% 100 ML IV SCH ×3 (03:50→19:54)
[2020-05-29 06:17] LABS: Basophils # (auto) 0.02 K/uL (0-0.2); Basophils % (auto) 0.1 %; Eosinophils # (auto) 0.17 K/uL (0-0.5); Eosinophils % (auto) 0.8 %; Hemoglobin 10.1 g/dL (12.0-16.0); Immature Granulocytes # (auto) 0.08 K/uL (0.00-0.02); Immature Granulocytes % (auto) 0.4 %; Lymphocytes # (auto) 1.61 K/uL (1.2-3.4); Lymphocytes % (auto) 7.2 %; Mean Corpuscular Hemoglobin 30.1 pg (25-34); Mean Corpuscular Hgb Conc 33.7 g/dL (32-36); Mean Corpuscular Volume 89.3 fL (80-100); Mean Platelet Volume 9.8 fL (7.4-10.4); Monocytes # (auto) 2.03 K/uL (0.11-0.59); Monocytes % (auto) 9.1 %; Neutrophils # (auto) 18.35 K/uL (1.4-6.5); Neutrophils % (auto) 82.4 %; Platelet Count 195 K/uL (130-400); RDW Coefficient of Variation 13.9 % (11.5-14.5); RDW Standard Deviation 45.6 fL (36.4-46.3); Red Blood Count 3.36 M/uL (4.2-5.4); White Blood Count 22.26 K/uL (4.8-10.8)
[2020-05-29] MEDS: PRENATAL VITAMIN 1 TAB PO SCH (08:16)
--- NOTE | 2020-05-29 08:22 | Obstetrical Progress Note ---
Date of Service May 29, 2020 Assessment & Plan (1) fever: (2) Endometritis following delivery: 34yo day 3 s/p uncomplicated . Presented with fevers and elevated WBC in ED. Suspected endometritis. However, Recurrent pelvic thrombophlebitis cannot be ruled out. Will continue to treat for endometritis however if fevers continue to spike after 24hours of antibiotics will treat for pelvic thrombophlebitis. Patient on Lovenox 800 BID with treatment of prior pelvic thrombophlebitis. WBC stable. Continue Zosyn. Admission and Anticipated Discharge Date Admission Date: May 28, 2020 Subjective 34yo day 3 s/p uncomplicated . Presented with fevers and elevated WBC in ED. Moderate uterine tenderness noted. Patient has hx of pelvic thrombophlebitis with prior . Exam and finding most consistent with post endomyometritis. Patient doing well today without complaint. Continues to have no symptoms except intermittent mild fevers. Physical Exam Constitutional: WD/WN, vitals as above Respiratory: normal respiratory effort; no respiratory distress and no labored breathing Cardiovascular: Rate/Rhythm: regular rhythm and + tachycardic Gastrointestinal (Abdomen): Inspection/Auscultation: normal bowel sounds; abdomen not distended Percussion/Palpation: abdomen soft; abdomen nontender, no guarding and abdomen not rigid Genitourinary: Speculum/Bimanual Exam: uterus nontender Results & Data ([facility]) Vital Signs (Past 12 Hours) Vital Signs Temp Pulse Pulse Resp BP Pulse Ox Pulse Ox 05/29/20 05:04 37.4 C 05/29/20 03:45 38.2 C H 109 H 20 104/87 97 05/28/20 23:30 36.9 C 111 H 111 H 20 107/67 98 98 05/28/20 22:00 37.4 C 05/28/20 20:40 38.3 C H 112 H 18 142/87 H 97 PG Care Time/CCT Total # of Minutes Spent Total Time Spent with Patient: Total time spent is greater than 50% in coordination of care (as documented) at patient's floor/unit and/or counseling patient: Coding Level of Care Code 18863 Subseq Hosp Care Lvl 2 Diagnoses fever O86.4 Endometritis following delivery O86.12
--- NOTE | 2020-05-29 13:08 | Emergency Department Note ---
History of Present Illness General Chief complaint: Illness Stated complaint: POST DELIVERY,BLEEDING,DR ARGUETA REF Time Seen by Provider: 05/28/20 10:54 Source: patient, RN notes reviewed and old records reviewed Mode of arrival: ambulatory Limitations: no limitations History of Present Illness Provider complaint: fever Onset (ago): day(s) 1 Location: pelvis Radiation: non-radiation Severity: mild Pain Consistency: + intermittent Maximum Pain Intensity: 6 Current Pain Intensity: 0 Quality: + aching Relieved By: + immobilization and + rest Exacerbated By: + movement Associated symptoms: + fever/chills; no chest pain, no malaise, no nausea/vom iting and no shortness of breath Treatments prior to arrival: none This is a 34-year-old female sent in by her recreational therapist over concerns that the patient started running a fever. The patient gave approximately 2 days ago. She has had normal vaginal bleeding since then. Patient has a complicated history of pelvic phlebitis following her first delivery. She is concerned that this is what has happened again. She is having pelvic pain which is made worse with movement however she states that this is normal status post delivery. She has not taken anything for the pain. Home Medications Medication Instructions Recorded Confirmed Type prenat.vits,mathew,eeo-sfap-zpmzd 1 tab PO DAILY 10/06/19 05/28/20 History Allergies Allergy/AdvReac Type Severity Reaction Status Date / Time No Known Allergies Allergy Verified 05/26/20 04:27 Past Med/Surg History Medical History Endometritis following delivery fever pelvic thrombophlebitis Surgical History H/O oral surgery S/P knee surgery S/P tonsillectomy and adenoidectomy Family History Grandmother (Maternal) Breast cancer Grandfather (Paternal) Hypertension Dyslipidemia Grandmother (Paternal) Dyslipidemia Mother Breast cancer Denies family history of Colon cancer Ovarian cancer Prostate cancer Social History Smoking Status: Never smoker Second Hand Exposure: Yes; Do You Dip or Chew Tobacco: No; Tobacco Cessation Education Requested by Patient: No Hx Alcohol Use: No Hx Substance Use: No Preferred Language: Niuean Communication Ability: Effective Visual Impairment: No Limitations Hearing Ability: Normal Coloring Checker Required: No Beliefs That Will Affect Care: None marital status: marital status details: Puneet Sheets [phone] Current Living Situation: Spouse Current Living Situation Comment: lives with spouse, grandfather & daughter, dogs current occupational status: employed current occupation: [employer] Other Information That Helps Us Care for You: No Feels Safe at Home: Yes Safety Concerns: Feels Safe At This Time Childhood Exposure to Second-Hand Smoke: No Dental Care, Regularly: Yes Physical Activity Frequency: 3-4 Times per Week Seatbelt Use: always Sunscreen Use: No Assistive Devices: None Review of Systems A total of 10 systems reviewed and were otherwise negative Physical Exam Vital Signs Vital Signs - 24 hr 05/28/20 13:34 05/28/20 13:40 05/28/20 13:50 Pulse Rate 112 H 118 H 112 H Pulse Rate from SpO2 Sensor 111 H 117 H 111 H Respiratory Rate 19 23 Blood Pressure Blood Pressure Mean Pulse Oximetry 94 97 96 05/28/20 14:00 Pulse Rate 117 H Pulse Rate from SpO2 Sensor 117 H Respiratory Rate 21 Blood Pressure 122/87 Blood Pressure Mean 99 Pulse Oximetry 96 VITAL SIGNS - Vital signs and nursing notes were reviewed. GENERAL - 34-year-old female appearing stated age who is in no acute distress. Communicates well with provider and answers questions appropriately. SKIN - Without rashes. HEAD - NC/AT. EYES - PERRL with EOMI bilaterally. Sclera anicteric. Palpebral conjunctiva pink and moist with no injection noted. EARS - No deformities of external structures noted on gross examination bilaterally. No pain elicited with palpation of the tragus bilaterally. External auditory canals without discharge or otorrhea. Tympanic membranes pearly swain without retraction or bulging. No fluid or purulent material visualized behind the TM. Handle of malleus, umbo, cone of light, pars tensa/flaccid all easily visualized. NOSE - Midline and without cyanosis. No epistaxis or purulent drainage noted. Septum midline without deviation or septal hematoma noted. MOUTH/OROPHARYNX - Without perioral cyanosis. Buccal mucosa pink and moist and without leukoplakia. Tongue midline with equal elevation of palate bilaterally. No tonsillar hypertrophy, erythema, or exudates noted. dentition noted. NECK - Neck with FROM. Supple to palpation. lymphadenopathy noted. No nuchal rigidity. LUNGS - Chest wall symmetric without accessory muscle use, intercostals retractions, or central cyanosis. Normal vesicular breath sounds CTA B/L. No wheezes, rales, or rhonchi appreciated. CARDIAC - RRR with S1/S2. No murmur, rubs, or gallops appreciated. ABDOMEN - Abdominal contour without pulsations or visible masses. BS normoactive all four quadrants. No tenderness, palpable masses, hepatosplenomegaly, or ascites noted. EXTREMITIES - No clubbing or peripheral cyanosis. No pretibial edema present. + 3/5 radial, posterior tibial, and dorsalis pedis pulses palpated throughout. +5/5 strength noted in UE/LE bilaterally. NEUROLOGIC - Cranial nerves II through XII grossly intact. Sensory intact to light touch throughout. Patellar reflexes +2/4. PSYCH - A&Ox3 and cooperates fully with examiner. Pt is very pleasant and interacts well with examiner. Course Administered Medications Acetaminophen (Acetaminophen 325 Mg Tab) 650 mg PO Q4H PRN PRN Reason: Pain or Fever Stop: 06/27/20 16:08 Last Admin: 05/29/20 03:49 Dose: 650 mg Documented by: [id number] Admin: 05/28/20 20:51 Dose: 650 mg Documented by: [id number] Cocaine HCl (Supercream 0.870% 15 Gm Jar) 1 gm EXT BID PRN PRN Reason: Hemorrhoidal Inflammation Stop: 06/11/20 19:44 Last Admin: 05/28/20 20:51 Dose: 15 gm Documented by: [id number] Piperacillin Sod/Tazobactam (Sod 3.375 gm/ Dextrose) 115 mls @ 28.75 mls/hr IV [facility]; Protocol Stop: 06/07/20 19:59 Last Admin: 05/29/20 12:15 Dose: 28.7 mls/hr Documented by: [id number] Infusion: 05/29/20 08:16 Dose: 0 mls/hr Documented by: [id number] Admin: 05/29/20 03:50 Dose: 28.8 mls/hr Documented by: [id number] Infusion: 05/29/20 00:51 Dose: 28.8 mls/hr Documented by: [id number] Admin: 05/28/20 20:51 Dose: 28.8 mls/hr Documented by: [id number] Prenat Multivit/Media Relations Associate/Iron/Folic Ac ( Vitamin 1 Tab) 1 tab PO DAILY JOHN Stop: 06/28/20 08:59 Last Admin: 05/29/20 08:16 Dose: 1 tab Documented by: [id number] Discontinued Medications Ertapenem (Invanz) 10 mls @ 2 mls/min IV NOW STA Stop: 05/28/20 12:46 Last Admin: 05/28/20 13:27 Dose: 2 mls/min Documented by: [id number] Piperacillin Sod/Tazobactam (Sod 3.375 gm/ Dextrose) 115 mls @ 230 mls/hr IV ONE ONE; Protocol Stop: 05/28/20 16:59 Last Infusion: 05/28/20 17:39 Dose: 0 mls/hr Documented by: [id number] Admin: 05/28/20 16:37 Dose: 230 mls/hr Documented by: [id number] Ioversol (Ioversol 100ml) 94 ml IV ONCE ONE Stop: 05/28/20 12:57 Last Admin: 05/28/20 12:56 Dose: 94 ml Documented by: [id number] Medical Decision Making Differential Diagnosis Appendicitis, testicular torsion, infections, diverticulitis, UTI, obstruction, mesenteric ischemia, aortic pathology, inflammatory bowel disease, renal colic, PUD, pancreatitis, biliary pathology, hernia, volvulus, constipation, as well as other pathologies. Medical Records Attestation: I reviewed the patient's medical records. Home Medications Current Medication List: was personally reviewed by me Laboratory Data Attestation: I reviewed the patient's lab results. Result diagrams: 05/29/20 06:09 05/28/20 11:30 Lab Results 05/28/20 05/28/20 05/28/20 Range/Units 11:30 11:30 11:30 WBC 22.44 H (4.8-10.8) K/uL RBC 3.64 L (4.2-5.4) M/uL Hgb 11.1 L (12.0-16.0) g/dL Hct 32.4 L (37-47) % MCV 89.0 (80-100) fL MCH 30.5 (25-34) pg MCHC 34.3 (32-36) g/dL RDW Std Deviation 45.6 (36.4-46.3) fL RDW Coeff of Talib 14.0 (11.5-14.5) % Plt Count 225 (130-400) K/uL MPV 10.6 H (7.4-10.4) fL Immature Gran % (Auto) 0.2 % Neut % (Auto) 83.9 % Lymph % (Auto) 7.2 % Sevier % (Auto) 8.5 % Eos % (Auto) 0.2 % Baso % (Auto) 0.0 % Neut # (Auto) 18.82 H (1.4-6.5) K/uL Lymph # (Auto) 1.62 (1.2-3.4) K/uL Sevier # (Auto) 1.91 H (0.11-0.59) K/uL Eos # (Auto) 0.04 (0-0.5) K/uL Baso # (Auto) 0.01 (0-0.2) K/uL Immature Gran # (Auto) 0.04 H (0.00-0.02) K/uL ESR 40 H (0-21) mm/hr PT 10.3 (9.0-12.0) Seconds INR 1.0 (0.9-1.1) APTT 27.4 (21.0-31.0) Seconds PTT Ratio 1.0 Sodium (136-145) mmol/L Potassium (3.5-5.1) mmol/L Chloride (98-107) mmol/L Carbon Dioxide (21-32) mmol/L Anion Gap (3-11) BUN (7-18) mg/dl Creatinine (0.6-1.2) mg/dl Est Cr Clr Drug Dosing ml/min Est GFR ( Amer) Est GFR (Non-Af Amer) BUN/Creatinine Ratio (10-20) Glucose (70-99) mg/dl Lactate (0.4-2.0) mmol/L Calcium (8.5-10.1) mg/dl Magnesium (1.8-2.4) mg/dl Ferritin (8-388) ng/ml Total Bilirubin (0.2-1) mg/dl AST (15-37) U/L ALT (12-78) U/L Alkaline Phosphatase (45-117) U/L Lactate Dehydrogenase (84-246) U/L C-Reactive Protein (0-0.29) mg/dl Total Protein (6.4-8.2) gm/dl Albumin (3.4-5.0) gm/dl Globulin (2.5-4.0) gm/dl Albumin/Globulin Ratio (0.9-2) Procalcitonin (0-0.5) ng/ml Urine Color Urine Appearance (Clear) Urine pH (4.5-7.5) Ur Specific Zuni (1.000-1.030) Urine Protein (Negative) Urine Glucose (UA) (Negative) Urine Ketones (Negative) Urine Blood (Negative) Urine Nitrite (Negative) Urine Bilirubin (Negative) Urine Urobilinogen (Negative) Ur Leukocyte Esterase (Negative) Urine WBC (Auto) (0-5) /hpf Urine RBC (Auto) (0-4) /hpf U Hyaline Cast (Auto) (0-5) /lpf U Epithel Cells (Auto) (0-5) /lpf Urine Bacteria (Auto) (Negative) COVID-19 Eval Order SARS-CoV-2, RNA, NAAT (NEGATIVE) 05/28/20 05/28/20 05/28/20 Range/Units 11:30 11:30 11:30 WBC (4.8-10.8) K/uL RBC (4.2-5.4) M/uL Hgb (12.0-16.0) g/dL Hct (37-47) % MCV (80-100) fL MCH (25-34) pg MCHC (32-36) g/dL RDW Std Deviation (36.4-46.3) fL RDW Coeff of Talib (11.5-14.5) % Plt Count (130-400) K/uL MPV (7.4-10.4) fL Immature Gran % (Auto) % Neut % (Auto) % Lymph % (Auto) % Sevier % (Auto) % Eos % (Auto) % Baso % (Auto) % Neut # (Auto) (1.4-6.5) K/uL Lymph # (Auto) (1.2-3.4) K/uL Sevier # (Auto) (0.11-0.59) K/uL Eos # (Auto) (0-0.5) K/uL Baso # (Auto) (0-0.2) K/uL Immature Gran # (Auto) (0.00-0.02) K/uL ESR (0-21) mm/hr PT (9.0-12.0) Seconds INR (0.9-1.1) APTT (21.0-31.0) Seconds PTT Ratio Sodium 141 (136-145) mmol/L Potassium 3.6 (3.5-5.1) mmol/L Chloride 107 (98-107) mmol/L Carbon Dioxide 27 (21-32) mmol/L Anion Gap 7.0 (3-11) BUN 6 L (7-18) mg/dl Creatinine 0.70 (0.6-1.2) mg/dl Est Cr Clr Drug Dosing 111.7 ml/min Est GFR ( Amer) 129.2 Est GFR (Non-Af Amer) 111.5 BUN/Creatinine Ratio 8.8 L (10-20) Glucose 78 (70-99) mg/dl Lactate 1.1 (0.4-2.0) mmol/L Calcium 8.8 (8.5-10.1) mg/dl Magnesium 2.2 (1.8-2.4) mg/dl Ferritin 27.7 (8-388) ng/ml Total Bilirubin 0.4 (0.2-1) mg/dl AST 17 (15-37) U/L ALT 19 (12-78) U/L Alkaline Phosphatase 179 H (45-117) U/L Lactate Dehydrogenase 153 (84-246) U/L C-Reactive Protein 11.80 H (0-0.29) mg/dl Total Protein 7.0 (6.4-8.2) gm/dl Albumin 2.7 L (3.4-5.0) gm/dl Globulin 4.3 H (2.5-4.0) gm/dl Albumin/Globulin Ratio 0.6 L (0.9-2) Procalcitonin (0-0.5) ng/ml Urine Color Urine Appearance (Clear) Urine pH (4.5-7.5) Ur Specific Zuni (1.000-1.030) Urine Protein (Negative) Urine Glucose (UA) (Negative) Urine Ketones (Negative) Urine Blood (Negative) Urine Nitrite (Negative) Urine Bilirubin (Negative) Urine Urobilinogen (Negative) Ur Leukocyte Esterase (Negative) Urine WBC (Auto) (0-5) /hpf Urine RBC (Auto) (0-4) /hpf U Hyaline Cast (Auto) (0-5) /lpf U Epithel Cells (Auto) (0-5) /lpf Urine Bacteria (Auto) (Negative) COVID-19 Eval Order SARS-CoV-2, RNA, NAAT (NEGATIVE) 05/28/20 05/28/20 05/28/20 Range/Units 11:30 11:30 11:30 WBC (4.8-10.8) K/uL RBC (4.2-5.4) M/uL Hgb (12.0-16.0) g/dL Hct (37-47) % MCV (80-100) fL MCH (25-34) pg MCHC (32-36) g/dL RDW Std Deviation (36.4-46.3) fL RDW Coeff of Talib (11.5-14.5) % Plt Count (130-400) K/uL MPV (7.4-10.4) fL Immature Gran % (Auto) % Neut % (Auto) % Lymph % (Auto) % Sevier % (Auto) % Eos % (Auto) % Baso % (Auto) % Neut # (Auto) (1.4-6.5) K/uL Lymph # (Auto) (1.2-3.4) K/uL Sevier # (Auto) (0.11-0.59) K/uL Eos # (Auto) (0-0.5) K/uL Baso # (Auto) (0-0.2) K/uL Immature Gran # (Auto) (0.00-0.02) K/uL ESR (0-21) mm/hr PT (9.0-12.0) Seconds INR (0.9-1.1) APTT (21.0-31.0) Seconds PTT Ratio Sodium (136-145) mmol/L Potassium (3.5-5.1) mmol/L Chloride (98-107) mmol/L Carbon Dioxide (21-32) mmol/L Anion Gap (3-11) BUN (7-18) mg/dl Creatinine (0.6-1.2) mg/dl Est Cr Clr Drug Dosing ml/min Est GFR ( Amer) Est GFR (Non-Af Amer) BUN/Creatinine Ratio (10-20) Glucose (70-99) mg/dl Lactate (0.4-2.0) mmol/L Calcium (8.5-10.1) mg/dl Magnesium (1.8-2.4) mg/dl Ferritin (8-388) ng/ml Total Bilirubin (0.2-1) mg/dl AST (15-37) U/L ALT (12-78) U/L Alkaline Phosphatase (45-117) U/L Lactate Dehydrogenase (84-246) U/L C-Reactive Protein (0-0.29) mg/dl Total Protein (6.4-8.2) gm/dl Albumin (3.4-5.0) gm/dl Globulin (2.5-4.0) gm/dl Albumin/Globulin Ratio (0.9-2) Procalcitonin 0.05 (0-0.5) ng/ml Urine Color Yellow Urine Appearance Clear (Clear) Urine pH >= 9.0 H (4.5-7.5) Ur Specific Zuni 1.010 (1.000-1.030) Urine Protein Negative (Negative) Urine Glucose (UA) Negative (Negative) Urine Ketones Negative (Negative) Urine Blood 3+ H (Negative) Urine Nitrite Negative (Negative) Urine Bilirubin Negative (Negative) Urine Urobilinogen Negative (Negative) Ur Leukocyte Esterase 2+ H (Negative) Urine WBC (Auto) >30 H (0-5) /hpf Urine RBC (Auto) >30 H (0-4) /hpf U Hyaline Cast (Auto) 0 (0-5) /lpf U Epithel Cells (Auto) 20-30 H (0-5) /lpf Urine Bacteria (Auto) Negative (Negative) COVID-19 [id number] SARS-[facility]-2, RNA, NAAT (NEGATIVE) 05/28/20 Range/Units 11:30 WBC (4.8-10.8) K/uL RBC (4.2-5.4) M/uL Hgb (12.0-16.0) g/dL Hct (37-47) % MCV (80-100) fL MCH (25-34) pg MCHC (32-36) g/dL RDW Std Deviation (36.4-46.3) fL RDW Coeff of Talib (11.5-14.5) % Plt Count (130-400) K/uL MPV (7.4-10.4) fL Immature Gran % (Auto) % Neut % (Auto) % Lymph % (Auto) % Sevier % (Auto) % Eos % (Auto) % Baso % (Auto) % Neut # (Auto) (1.4-6.5) K/uL Lymph # (Auto) (1.2-3.4) K/uL Sevier # (Auto) (0.11-0.59) K/uL Eos # (Auto) (0-0.5) K/uL Baso # (Auto) (0-0.2) K/uL Immature Gran # (Auto) (0.00-0.02) K/uL ESR (0-21) mm/hr PT (9.0-12.0) Seconds INR (0.9-1.1) APTT (21.0-31.0) Seconds PTT Ratio Sodium (136-145) mmol/L Potassium (3.5-5.1) mmol/L Chloride (98-107) mmol/L Carbon Dioxide (21-32) mmol/L Anion Gap (3-11) BUN (7-18) mg/dl Creatinine (0.6-1.2) mg/dl Est Cr Clr Drug Dosing ml/min Est GFR ( Amer) Est GFR (Non-Af Amer) BUN/Creatinine Ratio (10-20) Glucose (70-99) mg/dl Lactate (0.4-2.0) mmol/L Calcium (8.5-10.1) mg/dl Magnesium (1.8-2.4) mg/dl Ferritin (8-388) ng/ml Total Bilirubin (0.2-1) mg/dl AST (15-37) U/L ALT (12-78) U/L Alkaline Phosphatase (45-117) U/L Lactate Dehydrogenase (84-246) U/L C-Reactive Protein (0-0.29) mg/dl Total Protein (6.4-8.2) gm/dl Albumin (3.4-5.0) gm/dl Globulin (2.5-4.0) gm/dl Albumin/Globulin Ratio (0.9-2) Procalcitonin (0-0.5) ng/ml Urine Color Urine Appearance (Clear) Urine pH (4.5-7.5) Ur Specific Zuni (1.000-1.030) Urine Protein (Negative) Urine Glucose (UA) (Negative) Urine Ketones (Negative) Urine Blood (Negative) Urine Nitrite (Negative) Urine Bilirubin (Negative) Urine Urobilinogen (Negative) Ur Leukocyte Esterase (Negative) Urine WBC (Auto) (0-5) /hpf Urine RBC (Auto) (0-4) /hpf U Hyaline Cast (Auto) (0-5) /lpf U Epithel Cells (Auto) (0-5) /lpf Urine Bacteria (Auto) (Negative) COVID-19 Eval Order SARS-CoV-2, RNA, NAAT NEGATIVE (NEGATIVE) Imaging Data Radiologist's Impression: [facility], [phone] XRay Report Patient: GEORGIA DAVID LAdmel Date: 05/28/20MR#: [id number]: [address] R[address] ID:[id number]: Date: 1985[facility] Zip: [place], [place] [address]Qyf: 34Location: EDSex: FRoom/Bed:Att Phy:Diagnosis: POST DELIVERY,BLEEDING,DR ARGUETA REFPri Phy: RV. Rangel, MDService Date: 05/28/20Fa Phy:Interpreting Phy: Jared Ugalde MDAdmit Phy: Ordering Phy: David Mejia MD cc: ~ XR chest 1V portable CLINICAL HISTORY: Sepsis. COMPARISON STUDY: Chest CT January 18, 2018. FINDINGS: Lung volumes are normal. Lungs are clear. There is no pneumothorax or pleural effusion. Cardiac size is normal. Mediastinal contours are normal. There is no evidence for pulmonary edema. IMPRESSION: No acute cardiopulmonary findings. ACT 112: Negative or not required by law. Electronically signed by: Jared Ugalde M.D. 05/28/2020 12:36 PM Dictated: 05/28/20 1235Transcribed: 05/28/20 1235 [facility], [phone] Ultrasound Report Patient: GEORGIA DAVID Date: 05/28/20MR#: [id number]: [address] ID:[id number]: Date: 1985[facility] Zip: [place], [place] [address]Age: 34Location: EDSex: FRoom/Bed:Att Phy:Diagnosis: POST DELIVERY,BLEEDING,DR ARGUETA REFPri Phy: Rangel RVRox, MDService Date: 05/28/20Fam Phy:Interpreting Phy: Jared Ugalde MDAdmit Phy: Ordering Phy: David Mejia MD cc: ~ PELVIC ULTRASOUND CLINICAL HISTORY: recent delivery COMPARISON STUDY: OB ultrasound January 08, 2020. TECHNIQUE: Transabdominal and transvaginal sonography of the pelvis was performed. FINDINGS: Uterus measures 17.9 x 6.5 x 10.6 cm. There is prominent vascularity of the anterior myometrium of the uterus. In addition, there is a thickened, heterogeneous endometrium that measures up to 1.8 cm in thickness within the lower uterine segment. The ovaries were not visualized. No adnexal mass was identified. IMPRESSION: 1. Thickened endometrium, predominantly within the lower uterine segment and cervix without increased vascularity which could reflect blood products. How ever, increased vascularity within the anterior myometrium. These findings can be within normal limits in the early setting however other etiologies such as endometritis or retained products of conception could appear similar. 2. Nonvisualization of the ovaries. No adnexal masses. No free fluid. ACT 112: Negative or not required by law. Electronically signed by: Jared Ugalde M.D. 05/28/2020 1:26 PM Dictated: 05/28/20 1309Transcribed: 05/28/20 1312 [facility], [phone] CT Scan Report Patient: GEORGIA DAVID Date: 05/28/20MR#: [id number]: [address] R[address] ID:[id number]: Date: 1985[facility] Zip: [place], [place] [address]Zhf: 34Location: EDSex: FRoom/Bed:Att Phy:Diagnosis: POST DELIVERY,BLEEDING,DR ARGUETA REFPri Phy: REINALDO Multani., MDService Date: 05/28/20Fam Phy:Interpreting Phy: Senthil Nathan MDAdmit Phy: Ordering Phy: David Mejia MD cc: ~ CT abd pelvis IV con only CLINICAL HISTORY: Elevated white count. Filling of sepsis. Recent vaginal delivery. COMPARISON STUDY: None. TECHNIQUE: Patient was scanned in a dynamic helical fashion during intravenous administration of 94 cc of Optiray 320. A dose lowering technique was utilized adhering to the principles of ALARA. CT DOSE: 575.29 mGy.cm FINDINGS: Lower chest: The heart is normal in size and configuration, without pericardial effusion. The lung bases and pleural spaces are clear. Liver: The contrast-enhanced liver is normal in size, contour, and attenuation. There is no intrahepatic biliary ductal dilatation. The hepatic veins and portal veins are patent. Gallbladder: Unremarkable. Spleen: Normal in size and attenuation. Pancreas: Unremarkable. Adrenal glands: Unremarkable. Kidneys: There is symmetric renal cortical enhancement. The kidneys are normal in size without hydronephrosis. Bowel: There are no transition zones indicate bowel obstruction. There is no evidence of acute diverticulitis. The appendix appears normal. Peritoneum: There is no intraperitoneal free air or abdominal ascites. There is a bowel containing umbilical hernia. There is no obstruction. Vasculature: The abdominal aorta is normal in course and caliber. Adenopathy: There is no pathologic adenopathy Pelvic viscera: The uterus is enlarged consistent with a recent state. The anterior myometrium is hypervascular. There are prominent periuterine vessels. Skeletal structures: No destructive osseous lesions are seen. IMPRESSION: 1. No evidence of bowel obstruction. No evidence of free air 2. Normal appendix. No evidence of acute diverticulitis 3. Bowel containing umbilical hernia. No evidence of obstruction 4. Enlarged uterus consistent with a state. There is anterior myometrial hypervascularity and prominent periuterine vessels. ACT 112: Negative or not required by law. Electronically signed by: Senthil Nathan M.D. 05/28/2020 1:15 PM Dictated: 05/28/20 1308Transcribed: 05/28/20 1314 ECG Data Attestation: I personally reviewed and interpreted this ECG as follows: Indication: + other (fever) Rate (beats per minute): 117 Rhythm: + sinus tachycardia ECG Intervals/blocks: + Normal QT-c (421) ECG [place]: + Right axis deviation ECG ST segments: no ST depression and no ST elevation Comparison ECG Date: from (08/04/2016) Change: no significant change MDM Narrative Patient was seen and evaluated as above in room B11. Review was performed of nursing notes and vital signs. I did review pertinent previous visits and patie nt history. After obtaining a thorough history and physical examination the above work up was performed. This is a 34-year-old female who presents emergency department complaining of fever. The patient does have a large elevation in her white blood cell count. Based on this the patient was pancultured and started on broad-spectrum antibiotics. I did discuss the case with the recreational therapist on-call who was kind enough to see the patient and will have the patient admitted overnight. An order was placed for continuous cardiac monitoring. The monitor shows a rate of 112 with Sinus Tachycardia rhythm. The patient was evaluated during a period of high volume and high acuity while the hospital was at overcapacity during the global COVID-19 pandemic, and that diagnosis was suspected/considered upon their initial presentation. Their evaluation, treatment and testing was consistent with current guidelines for patients who present with complaints or symptoms that may be related to COVID- 19. Impression & Plan Fever Discharge Plan Visit Data Chief Complaint: Illness Stated Complaint: POST DELIVERY,BLEEDING,DR KENDALL WHALEN ED Provider: David Mejia Discharge Problem: Fever Patient Disposition: Admitted As Inpatient Discharge Instructions Interventions: ED Discharge Assessment Last Done: 05/28/20 15:59 Discharge Problem: Fever Qualifiers: Fever type: unspecified Qualified Code(s): R50.9 - Fever, unspecified
[2020-05-29] MEDS: ENOXAPARIN 80 MG/0.8 ML SYR SQ SCH (17:47)
[2020-05-30] MEDS: PIPERACILLIN/TAZOBACTAM 3.375 GM in DEXTROSE 5% 100 ML IV SCH ×3 (04:16→19:44)
[2020-05-30] MEDS: ENOXAPARIN 80 MG/0.8 ML SYR SQ SCH ×2 (05:57→17:58)
[2020-05-30 06:14] LABS: Basophils # (auto) 0.02 K/uL (0-0.2); Basophils % (auto) 0.1 %; Eosinophils # (auto) 0.41 K/uL (0-0.5); Eosinophils % (auto) 2.1 %; Hematocrit (blood only) 29.4 % (37-47); Hemoglobin 9.9 g/dL (12.0-16.0); Immature Granulocytes # (auto) 0.07 K/uL (0.00-0.02); Immature Granulocytes % (auto) 0.4 %; Lymphocytes # (auto) 1.81 K/uL (1.2-3.4); Lymphocytes % (auto) 9.3 %; Mean Corpuscular Hemoglobin 30.2 pg (25-34); Mean Corpuscular Hgb Conc 33.7 g/dL (32-36); Mean Corpuscular Volume 89.6 fL (80-100); Mean Platelet Volume 10.1 fL (7.4-10.4); Monocytes % (auto) 8.2 %; Neutrophils # (auto) 15.54 K/uL (1.4-6.5); Neutrophils % (auto) 79.9 %; Platelet Count 226 K/uL (130-400); RDW Coefficient of Variation 13.7 % (11.5-14.5); RDW Standard Deviation 45.2 fL (36.4-46.3); Red Blood Count 3.28 M/uL (4.2-5.4); White Blood Count 19.45 K/uL (4.8-10.8)
[2020-05-30 06:45] LABS: Creatinine Clr Calc Pharmacy 127.4 ml/min; Est GFR (African American) 135.2; Est GFR (Non-African American) 116.6
[2020-05-30] MEDS: DOCUSATE SODIUM 100 MG CAP PO PRN (08:53)
[2020-05-30] MEDS: PRENATAL VITAMIN 1 TAB PO SCH (08:53)
--- NOTE | 2020-05-30 11:50 | Obstetrical Progress Note ---
Date of Service May 30, 2020 Assessment & Plan (1) pelvic thrombophlebitis: white count decreasing. Lovenox started at 1800 last night. continue Zosyn and Lovenox as ordered until she is afebrile for 48 hours then D/C to home after discontinuing meds. Day #:: 2 Subjective Ambulation: ambulating normally Voiding: no voiding problems Passing Gas:: Yes Diet Tolerance:: regular diet Lochia:: Small Feeding Type:: breast feeding (currently pumping) still feels well. no localizing signs or symptoms of infection. she had one brief episode of midsternal chest tightness but this resolved in a few minutes. She had temp elevation to 38.1 at 1600 yesterday. none since then. Review of Systems All systems reviewed & are unremarkable except as noted in HPI & below Physical Exam Constitutional WD/WN, vitals as above Gastrointestinal (Abdomen) normal bowel sounds, soft, nontender, no hepatosplenomegaly Genitourinary OB Exam Abdomen: + fundal height (fundus nontender- involuting appropriately) Fundus: + firm and + relation to umbilicus (4 below U); not tender Results & Data ([facility]) Vital Signs (Past 12 Hours) Vital Signs Temp Pulse Pulse Resp BP Pulse Ox 05/30/20 07:18 98.4 F 97 H 18 106/72 97 05/30/20 04:15 98.6 F 88 18 113/80 97 05/30/20 00:00 98.8 F 94 H 18 125/67 97
[2020-05-31] MEDS: PIPERACILLIN/TAZOBACTAM 3.375 GM in DEXTROSE 5% 100 ML IV SCH ×2 (03:44→11:04)
[2020-05-31] MEDS: ENOXAPARIN 80 MG/0.8 ML SYR SQ SCH ×2 (06:04→15:13)
--- NOTE | 2020-05-31 07:24 | Obstetrical Progress Note ---
Date of Service May 31, 2020 Assessment & Plan (1) pelvic thrombophlebitis: Patient feels much better she has not had a significantly elevated temperature since 4:00 on Wednesday p.m. the plan as discussed with Dr. Meyer yesterday was to continue her Lovenox and antibiotics until then and then discharge her home if her temperature stayed reasonable I reviewed this plan with her. The plan is also not to continue Lovenox and antibiotics per her plan. Patient is agreeable Subjective Ambulation: ambulating normally Voiding: no voiding problems Diet Tolerance:: regular diet Lochia:: Small Current Pain Level(1-10): 0 Physical Exam Constitutional WD/WN, vitals as above Gastrointestinal (Abdomen) normal bowel sounds, soft, nontender, no hepatosplenomegaly Results & Data ([facility]) Vital Signs (Past 12 Hours) Vital Signs Temp Pulse Pulse Pulse Resp BP Pulse Ox 05/31/20 03:40 98.2 F 92 H 18 108/73 98 05/31/20 00:10 97.9 F 91 H 18 109/73 98 05/30/20 19:30 99.5 F 96 H 20 117/77 97
[2020-05-31 07:59] LABS: Hematocrit (blood only) 31.9 % (37-47); Hemoglobin 10.5 g/dL (12.0-16.0); Mean Corpuscular Hemoglobin 29.6 pg (25-34); Mean Corpuscular Hgb Conc 32.9 g/dL (32-36); Mean Corpuscular Volume 89.9 fL (80-100); Mean Platelet Volume 9.9 fL (7.4-10.4); Platelet Count 274 K/uL (130-400); RDW Coefficient of Variation 13.3 % (11.5-14.5); RDW Standard Deviation 44.3 fL (36.4-46.3); Red Blood Count 3.55 M/uL (4.2-5.4); White Blood Count 17.54 K/uL (4.8-10.8)
[2020-05-31] MEDS: DOCUSATE SODIUM 100 MG CAP PO PRN (08:18)
[2020-05-31] MEDS: PRENATAL VITAMIN 1 TAB PO SCH (08:19)
[2020-05-31 11:10] VITALS: TEMP 97.9
[2020-05-31 15:18] VITALS: BP 111/76; PULSE 100; O2SAT 98
== END 2020-05-31 16:02 | disposition home or self-care (01) | DRG 776 ==
LOC: ED 10:29 → 4N 14:01

== ENCOUNTER 2024-07-17 07:26 | Inpatient (IN) ==
--- OUTSIDE RECORDS SUMMARY | 2024-07-17 07:34 | External Medical Summary | Summary of Care ---
Author Name Unknown Organization [facility] Address [address] [facility] [place] [address] Phone [phone] Care Team Providers Care Slip Operator Name Role Phone Toma Begum MD Prima ry Care Provider Reason for Visit * Reason Comments Return Visit Non Stress Test Encounter Details Date Type Department Care Team (Late st Contact Info) Description 07/12/2024 8:00 AM EST Office Visit Gynecology/Obstetric s [facility] [address] [place] [id number] Cintia Zee CRNP [address] [place] [place] [phone] High-risk in third trimester*; Antepartum multigravida of advanced maternal age; Hx of thrombophlebitis; History of thyroid disorder; History of gestational hypertension; Excessive growth affecting management of in third trimester, single or unspecified fetus; renal anomaly, single gestation Allergies No known active allergiesdocumented as of this encounter (statuses as of 07/12/2024) Medications 28-0.8 MG Oral Tablet Take by mouth. Active documented as of this encounter (statuses as of 07/12/2024) Active Problems Problem Noted Date Diagnosed Date LGA (large for gestational a ge) fetus affecting management of mother 06/27/2024 Overview (06/27/2024): 98% ile at 36w2d renal anomaly, single gestation 06/27/2024 Overview (06/27/2024): Right renal pelvis 7.2 mm, borderline dilated at 36w2d History of thyroid disorder 01/18/2024 Overview (03/06/2024): Patient reports history of abnormal thyroid labs, which resolved with herbal medication. Reports recent labs WNL; no thyroid labs available for review today. TSH Results: No results found for: "TSH" Assessment & Plan (01/18/2024 11:34 AM EDT): Recommend monitoring TSH with free T4 if indicated every trimester. If patient experiences thyroid goiter or nodule during , we recommend that she be referred to endocrinology for evaluation and management. is not a contraindication to fine needle aspiration, but should be handled at the discretion of the edger feeder. History of gestational hypertension 0 01/18/2024 Overview (01/18/2024): Upon review of records from 2018 delivery and course at [facility], patient was diagnosed with gestational hypertension and prescribed labetalol following that delivery. Recommend bASA 81 mg daily as patient has several moderate risk factors for preeclampsia; including gestational hypertension and AMA. BP Readings from Last 5 Encounters: 01/10/24 116/72 12/17/23 116/64 07/17/23 108/74 10/15/20 123/74 01/12/16 110/66 Baseline Preeclampsia Labs Lab Results Component Value Date/Time PLT 237 01/10/2024 08:34 AM Assessment & Plan (01/18/2024 11:52 AM EDT): CONSIDERATIONS: Explained to patient that in a woman who has always had normal blood pressures, gestational hypertension (GHTN) is defined as persistent elevations in her BP after 20 weeks gestation. Elevated BP is defined as greater than or equal to 140mmHg systolic or greater than 90mmHg diastolic on two separate occasions at least 4 hours apart after 20 weeks gestation. Explained to patient that women with hypertension during are at significantly increased risk for placental abruption, pre-eclampsia/eclampsia, delivery, gestational diabetes, growth restriction, stillbirth, delivery, hemorrhage, and maternal morbidity. These risks are related to the severity of the hypertension RECOMMENDATIONS: Recommend patient be followed clinically. Also recommend labwork with AST/ALT and platelets, and urine protein screen. If diagnosed with gestational hypertension recommend Maternal Medicine ultrasound for growth within 1 week of GHTN diagnosis and then every 4 weeks thereafter. Reviewed that GHTN, pre-eclampsia and HELLP are not preventable conditions. There is some evidence that daily ASA 81mg may decrease the risk for recurrence in patients with additional risk factors, and we recommend that she proceed with starting this therapy at 13 weeks. High-risk 12/17/2023 Antepartum multigravida of advanced maternal age 0712/17/2023 Overview (01/18/2024): Ms. Kent will be 38 years-old at time of delivery (DIALLO 07/23/24). Genetic screening in process. Assessment & Plan (03/08/2024 11:11 AM EDT): I reviewed the ultrasound with her. The anatomy that was visualized appears unremarkable and the biometry is appropriate for the gestational age. The amniotic fluid volume is subjectively normal. I reviewed her low risk noninvasive screen in light of normal ultrasound findings. Assessment & Plan (01/20/2024 1:58 PM EDT): CONSIDERATIONS: We reviewed the most pertinent aspects of the following: Advanced maternal age (AMA) refers to a woman with a hernandez who will be at the age of 35 or older at the estimated time of delivery and may be associated with increased morbidity. Prior to the appointment the patient has had genetic screening and it was reported as low risk. In addition to the risk of chromosomal abnormalities, there is an increased risk of congenital/structural anomalies. RECOMMENDATIONS: Recommend MFM anatomy ultrasound at 19-20 weeks gestation. As patient is 40 or greater at DIALLO: Recommend ultrasound for growth 28-30 weeks gestation. Recommend surveillance with weekly NST at 38 weeks. Recommend delivery by EDC. Assessment & Plan (01/18/2024 11:33 AM EDT): CONSIDERATIONS: We reviewed the most pertinent aspects of the following: Advanced maternal age (AMA) refers to a woman with a hernandez who will be at the age of 35 or older at the estimated time of delivery and may be associated with increased morbidity. Cell-free DNA (cffDNA) screening is a genetic screening option that analyzes maternal blood for DNA that is placental in origin and targets the following conditions: Trisomy 21 (Down syndrome), trisomy 18, trisomy 13, and sex chromosome abnormalities such as monosomy X (Monge syndrome), and sex chromosome trisomies (triple X, Klinefelter syndrome, XYY). It may also evaluate for other genetic alterations such as microdeletions, depending on the specific test. It reveals the sex of the fetus but should generally not be performed solely for this indication. The screening test can be performed after 10 weeks gestation. Results provided are NOT diagnostic, but provide a risk estimate. Types of results include low-risk/negative, high-risk/positive, and inconclusive. Low-risk results convey a low risk for the conditions screened, while high-risk results will indicate which condition is high risk and the likelihood of the condition based on the results. High-risk and inconclusive results would require follow up with a Maternal- Medicine genetic counselor. Amniocentesis would be recommended in the setting of high-risk results. Results are available 5-7 days after the test is completed. Cost of cffDNA screening is dependent on health insurance plan. Brochure provided to patient with contact information to call and inquire about [place] [address]). Patient aware not all insurances cover this test. The performing laboratory will bill the insurance directly. Offer MSAFP only (not Quad Screen) at 16-22 weeks if screening for open neural tube defects is desired. Amniocentesis for diagnosis of chromosomal abnormalities is also available. The risk of complications from the procedure and that risk is 1 in 500 (0.2%). In addition to the risk of chromosomal abnormalities, there is an increased risk of congenital/structural anomalies. RECOMMENDATIONS: Recommend MFM anatomy ultrasound at 19-20 weeks gestation. As patient is 40 or greater at DIALLO: Recommend ultrasound for growth 28-30 weeks gestation. Recommend surveillance with weekly NST at 38 weeks. Recommend delivery by EDC. Hx of thrombophlebitis 12/17/2023 Overview (01/21/2024): In 2018 patient presented with fever 3 days and was treated with broad spectrum antibiotics for suspected endometritis. After several days of continued fevers despite antibiotics, a diagnosis was made of presumed septic thrombophlebitis. She was started on Lovenox 80 mg BID; after which fevers resolved and Zosyn was discontinued. Required IV Zosyn again due to additional fevers prior to discharge on hospital day #8. She had a similar presentation following her 2020 delivery, and was again diagnosed with septic pelvic thrombophlebitis requiring Lovenox and broad spectrum antibiotics. After her second , she saw Hematology and was told that she should receive antibiotics and blood thinners shortly after delivery in any future pregnancies. Hematology did not recommend antepartum anticoagulation. At the time, patient was not intending to have another baby. Now that she is again, she has discussed this history with her OB in [facility] and would like to confirm plan of care prior to delivery. Per MFM: We do not recommend any prophylactic anticoagulant for patient while . There is no evidence in support of preemptive treatment for thrombophlebitis after delivery. If patient develops a persistent fever not responsive to antibiotics, it is prudent to suspect a repeat episode of pelvic thrombophlebitis. In this scenario, please rule out other potential causes of fever and complete pelvic imaging, preferably with pelvic CT We recommend anticoagulation and antibiotic treatment if there is a concern for pelvic septic thrombophlebitis. Assessment & Plan (01/20/2024 1:54 PM EDT): Consideration Patient with multiple prior episodes of fever requiring antibiotics and anticoagulation for effective treatment. We reviewed her history which is negative for any thrombophilia or prior episodes of DVT. Overall low risk of recurrence of septic pelvic thrombophlebitis. Recommendations We do not recommend any prophylactic anticoagulant for patient while . There is no evidence in support of preemptive treatment for thrombophlebitis after delivery. If patient develops a persistent fever not responsive to antibiotics, it is prudent to suspect a repeat episode of pelvic thrombophlebitis. In this scenario, please rule out other potential causes of fever and complete pelvic imaging, preferably with pelvic CT We recommend anticoagulation and antibiotic treatment if there is a concern for pelvic septic thrombophlebitis. Assessment & Plan (01/18/2024 12:04 PM EDT): Will schedule follow-up with MFM fellow in order to confirm appropriate care plan. Also recommend Hematology follow-up, as patient has not seen them in several years and was not anticipating another at that time. She plans to reach out to [facility] where she had previously established care. Assessment & Plan (12/17/2023 2:13 PM EDT): Hx septic pelvic thrombophlebitis x 2 - MFM referral made Estimated Date of Delivery Comme nts Yes 07/23/2024 Based on Ultraso und documented as of this encounter (statuses as of 07/12/2024) Resolved Problems Problem Noted Date Diagnosed Date Resolved Date 13 weeks gestation of 01/20/2024 02/07/2024 Assessment & Plan (01/20/2024 1:55 PM EDT): -Continue with vitamins -Low risk Qnatal, no information on gender. -Continue routine OB care documented as of this encounter (statuses as of 07/12/2024) Social History Tobacco Use Types Packs/Day Years Used Date Smoking Tobacco: Never Smokeless Tobacco: Never Alcohol Use Standard Drinks/Week Comments Not Currently 0 (1 standard drink = 0.6 oz pur e alcohol) rarely Hunger Vital Sign Answer Date Recorded Within the past 12 months, y ou worried that your food would run out before you got the money to buy more. Never true 12/07/19 24 Within the past 12 months, t he food you bought just didn't last and you didn't have money to get more. Never true 12/07/2023 [place] Depression Scale Answer Date Recorded [place] Depression Scale Total 4 06/09/2024 The thought of harming myself has occurred to me . Never 06/09/2024 Childcare Answer Date Recorded Do you feel overwhelmed with taking care of a child, family member or friend? No 12/07/2023 Does your family need help f inding childcare? (Household - for ages 0-17 years) Not on file 12/07/2023 Clothing Answer Date Recorded Have you been unable to get clothing when it was really needed? No 12/07/2023 Is your family able to get c lothes or diapers when needed? (Household - for ages 0-17 years) Not on file 12/07/2023 Personal Safety Answer Date Recorded Do you feel unsafe or have concerns for your saf ety? No 12/07/2023 Do you have concerns for you r family's safety? (Household - for ages 0-17 years) Not on file 12/07/2023 Utilities Answer Date Recorded Do you have trouble paying y our heating, water, or electric bill? No 12/07/2023 Is your family able to pay t he heat, water, or electric bill? (Household - for ages 0-17 years) Not on file 12/07/2023 Does your family have access to good internet? (Household - for ages 0-17 years) Not on file 12/07/2023 Employment Status Answer Date Recorded Are you unemployed or without regular income? No 12/07/2023 Does the household have a re lar source of income? (Household - for ages 0-17 years) Not on file 12/07/2023 Social Connections Answer Date Recorded How often do you feel lonely or isolated from th ose around you? Never 12/07/2023 Financial Resource Strain Answer Date R ecorded Do you have any trouble payi ng for your medications, or do you think you might in the future? No 12/07/2023 Does your family have troubl e paying for medicine? (Household - for ages 0-17 years) Not on file 12/07/2023 Transportation Needs Answer Date Record ed Do you have trouble getting a ride to medical visits or work? (Adult - for ages 18 years and over) Not on file 12/07/2023 Does your family have a hard time getting a ride to doctors visits? (Household - for ages 0-17 years) Not on file 12/07/2023 Has lack of transportation k ept you from medical appointments, meetings, work, or from getting things needed for daily living? Check all that apply. No 12/07/2023 Do you (or your family) have trouble finding or paying for a ride (transportation)? (Household - for ages 0-17 years) Not on file 12/07/2023 Housing Stability Answer Date Recorded Do you currently live in a s helter or have no steady place to sleep at night? No 12/07/2023 Do you think you are at risk of becoming homeless? (Adult - for ages 18 years and over) Not on file 12/07/2023 Does your family worry about paying for your home or becoming homeless? (Household - for ages 0-17 years) Not on file 0 12/07/2023 Are you homeless or worried that you might be in the future? No 12/07/2023 Are you (or your family) koki eless or worried that you might be in the future? (Household - for ages 0-17 years) Not on file Food Insecurity Answer Date Recorded Do you need food for this week? No 12/07/2023 Are you able to get enough f ood for your family? (Household - for ages 0-17 years) Not on file 12/07/2023 Does your family need food t his week? (Household - for ages 0-17 years) Not on file 12/07/2023 Do you always have enough fo od for your family? (Household - for ages 0-17 years) Not on file 12/07/2023 Food Insecurity Answer Date Recorded Within the past 12 months, y ou worried that your food would run out before you got the money to buy more. Never true 12/07/19 24 Within the past 12 months, t he food you bought just didn't last and you didn't have money to get more. Never true 12/07/2023 Do you need food for this week? 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 Denies regular ctx but feeling more pressure and irregular tightening. Denies bleeding/LOF. Scheduled for 39 wk induction. Call sooner with labor signs or decreased FM. MARVIN Jones ASSESSMENT assessment with Non-stress Test completed on 07/12/2024 at 38.3 weeks gestation for indicationof AMA heart baseline: 140 bpm Variability: Moderate Decelerations: absent Accelerations: present Contractions: None NST start time: 0752 NST stop time: 0817 NST strip reviewed, interpreted, and approved by OB provider, MARVIN Jones . NST strip stored in clinic storage file documented in this encounter Plan of Treatment Health Maintenance Due Date Last Done Comments Diabetes Screening 1983 Lipid Panel 1983 Depression Screening 1995 Hepatitis B Vaccine (1 of 3 - 19+ 3-dose series) 11/23/2002 COVID-19 Vaccine ( - 2023- season) 2024 Influenza Vaccine (FLU shot) (#1) 2024 Mammogram 11/29/2024 11/30/2023, 07/0 07/2023, 11/25/2023, Additional history exists Pap Smear 12/16/2026 12/17/2023 Cervical Cancer Screening 12/16/2028 HPV/Co-Test 12/16/2028 12/17/2023, 07/22/2023 DTap/Tdap Vaccines (2 - Td or Tdap) 03/06/2030 03/06/2020 HPV (Gardasil) Vaccine Aged Out No lo nger eligible based on patient's age to complete this topic MENINGOCOCCAL (MENACTRA/MENVEO) Aged Out No longer eligible based on patient's age to complete this topic Pneumococcal Vaccine: Pediatrics (0 to 5 Years) and At-Risk Patients (6 to 18 Years and 19+ Years) Aged Out No longer eligib le based on patient's age to complete this topic documented as of this encounter Medical Devices Not on filedocumented as of this encounter Visit Diagnoses Diagnosis Supervision of high-risk , unspecified trimester- Primary Antepartum multigravida of advanced maternal age Hx of thrombophlebitis Personal history of thrombophlebitis Antepartum multigravida of advanced maternal age- Primary , supervision, high-risk, first trimester Hx of thrombophlebitis Personal history of thrombophlebitis History of thyroid disorder History of gestational hypertension Hx of thrombophlebitis- Primary Personal history of thrombophlebitis Antepartum multigravida of advanced maternal age 13 weeks gestation of state, incidental Antepartum multigravida of advanced maternal age- Primary History of gestational hypertension Hx of thrombophlebitis Personal history of thrombophlebitis High-risk in third trimester- Primary Antepartum multigravida of advanced maternal age Hx of thrombophlebitis Personal history of thrombophlebitis History of thyroid disorder History of gestational hypertension Excessive growth affecting management of in third trimester, single or unspecified fetus renal anomaly, single gestation documented in this encounter Care Teams Slip Operator Relationship Specialty Start Date End Date Toma Begum MD [address] [address] PCP - General Internal Medicine 07/24/23 documented as of this encounter
--- OUTSIDE RECORDS SUMMARY | 2024-07-17 07:35 | External Medical Summary | Summary of Care ---
Author Name Unknown Organization [facility] Address [address] [place] [address] Phone [phone] Care Team Providers Care Carbon Brusher Assembler Name Role Phone Toma Begum MD Prima ry Care Provider Encounter Details Date Type Department Care Team (Late st Contact Info) Description 06/20/2024 Population Health External Data Unspecified Department Allergies No known active allergiesdocumented as of this encounter (statuses as of 06/20/2024) Medications 28-0.8 MG Oral Tablet Take by mouth. Active documented as of this encounter (statuses as of 06/20/2024) Active Problems Problem Noted Date Diagnosed Date History of thyroid disorder 01/18/2024 Overview (03/06/2024): [...] be handled at the discretion of the ship washer. History of gestational hypertension 0 01/18/2024 Overview (01/18/2024): Upon review of records from 2018 delivery and course at [facility], patient was diagnosed with gestational hypertension and [...] insurance coverage and cost [place] [address]). Patient aware not all insurances cover this [...] increased risk of congenital/structural anomalies. RECOMMENDATIONS: Recommend [facility] anatomy ultrasound at 19-20 weeks gestation. As [...] discussed this history with her OB in [facility] and would like to confirm plan [...] time. She plans to reach out to [facility] Hem/Onc where she had previously established care. Assessment & Plan (12/17/2023 2:13 PM EDT): Hx septic pelvic thrombophlebitis x 2 - MFM referral made Estimated Date of Delivery Comme nts Yes 07/23/2024 Based on Ultraso und documented as of this encounter (statuses as of 06/20/2024) Resolved Problems Problem Noted Date Diagnosed Date Resolved Date 13 weeks gestation of 01/20/2024 02/07/2024 Assessment & Plan (01/20/2024 1:55 PM EDT): -Continue with vitamins -Low risk Qnatal, no information on gender. -Continue routine OB care documented as of this encounter (statuses as of 06/20/2024) Social History Tobacco Use Types Packs/Day Years [...] money to get more. Never true 12/07/2023 [place] Depression Scale Answer Date Recorded [place] Depression Scale Total 4 06/09/2024 The thought [...] 12/07/2023 Does the household have a re gular source of income? 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 Not on file Not on file documented as of this encounter Plan of Treatment Upcoming Encounters Date Type Department Care Team (Late st Contact Info) Description 06/27/2024 7:45 AM EST Imaging Radiology [facility] [address] [place] [phone] 06/27/2024 8:45 AM EST Office Visit Gynecology/Obstetrics [facility] [address] [place] [address] Back[place], MARVIN De Jesus [address] [place] [phone] Health Maintenance Due Date Last Done Comments Diabetes Screening 1983 Lipid Panel 1983 Depression Screening 1995 Hepatitis B Vaccine (1 of 3 - 19+ 3-dose series) 11/23/2002 COVID-19 Vaccine ( - season) 2024 Influenza Vaccine (FLU shot) (#1) 2024 Mammogram 11/29/2024 11/30/2023, 07/2023, 11/25/2023, Additional history exists Pap Smear [...] Not on filedocumented as of this encounter Care Teams Carbon Brusher Assembler Relationship Specialty Start Date End Date Toma Begum MD [address] [place] [address] PCP - General Internal Medicine 07/24/23 documented as of this encounter
--- OUTSIDE RECORDS SUMMARY | 2024-07-17 07:35 | External Medical Summary | Summary of Care ---
Author Name Unknown Organization [facility] Address [address] [facility] [place] [address] Phone [phone] Care Team Providers Care Under Seal Operator Name Role Phone Toma Begum MD Prima ry Care Provider Reason for Visit * Reason Onset Date Comments Appointment 06/02/2024 Encounter Details Date Type Department Care Team (Late st Contact Info) Description 06/02/2024 Telephone Gynecology/Obstetrics, [address] [place] [address] Buzz Gomez MD [address] [place] [address] Appointment Allergies No known active allergiesdocumented as of this encounter (statuses as of 06/07/2024) Medications 28-0.8 MG Oral Tablet Take by mouth. Active documented as of this encounter (statuses as of 06/07/2024) Active Problems Problem Noted Date Diagnosed Date [...] be handled at the discretion of the civil project engineer. History of gestational hypertension 0 01/18/2024 Overview (01/18/2024): Upon review of records from 2018 delivery and course at [facility], patient was diagnosed with gestational hypertension and [...] insurance coverage and cost ([place] [address]). Patient aware not all insurances cover this [...] discussed this history with her OB in [facility] and would like to confirm plan of [...] time. She plans to reach out to [facility] Hem/Onc where she had previously established care. Assessment & Plan (12/17/2023 2:13 PM EDT): Hx septic pelvic thrombophlebitis x 2 - MFM referral made Estimated Date of Delivery Comme nts Yes 07/23/2024 Based on Ultraso und documented as of this encounter (statuses as of 06/07/2024) Resolved Problems Problem Noted Date Diagnosed Date Resolved Date 13 weeks gestation of 01/20/2024 02/07/2024 Assessment & Plan (01/20/2024 1:55 PM EDT): -Continue with vitamins -Low risk Qnatal, no information on gender. -Continue routine OB care documented as of this encounter (statuses as of 06/07/2024) Social History Tobacco Use Types Packs/Day Years [...] money to get more. Never true 12/07/2023 [place] Depression Scale Answer Date Recorded [place] Depression Scale Total 7 12/17/2023 The thought of harming myself has occurred to me . Never 12/17/2023 Childcare Answer Date Recorded Do you feel [...] on file documented as of this encounter Miscellaneous Notes * Telephone Encounter - Nia Rogers OSA - 06/07/2024 9:25 AM EST Pt scheduled. * Telephone Encounter - Rossana Harden RN - 06/02/2024 2:34 PM EST T/C from pt requesting to schedule next RPN appt. Needs scheduled week on 06/05/2024. Last seen on 05/23/2024. Please call pt to assist. No openings found. Derrick'dillon pt. documented in this encounter Plan of Treatment Upcoming Encounters Date Type Department Care Team (Late st Contact Info) Description 06/09/2024 1:45 PM EST Office Visit Gynecology/Obstetrics Rao Ramirez [address] [place] [address] Cintia Zee CRNP [address] [place] [address] Health Maintenance Due Date Last Done Comments Diabetes Screening 1983 Lipid Panel 1983 Depression Screening 1995 Hepatitis B Vaccine (1 of 3 - 19+ 3-dose series) 11/23/2002 COVID-19 Vaccine ( season) 2024 Influenza Vaccine (FLU shot) (#1) [...] filedocumented as of this encounter Care Teams Under Seal Operator Relationship Specialty Start Date End Date Toma Begum MD [address] [place] [address] PCP - General Internal Medicine 07/24/23 documented as of this encounter
--- OUTSIDE RECORDS SUMMARY | 2024-07-17 07:35 | External Medical Summary ---
Author Name Unknown Address Unknown Organization [id number]:LABORATORY [facility] [place] - [address] [place] [address] Laboratory Report Ordering Provider Test Date Status TIGIST GONZALEZ 05/05/2024 09:11:27 Final Observation Date Value Abnormality Reference (Units ) Status Creatinine 05/05/2024 09:11:27 0.5 0.5-1.0 (mg/dL) Final Glomerular filtration rate/1.73 sq M.predicted [Volume Rate/Area] in Serum, Plasma or Blood by Creatinine-based formula (CKD-EPI) 05/05/2024 09:11:27 >90 >=60 (mL/min) Final eGFR is calculated based on the CKD-EPI 2020 equation. Performing Location LABORATORY [facility] [place] - [address] [place] [address]
--- OUTSIDE RECORDS SUMMARY | 2024-07-17 07:35 | External Medical Summary ---
Author Name Unknown Address Unknown Organization [id number]:LAB[facility]ATORY [facility] [address] - [address] [place] [address] Laboratory Report Ordering Provider Test Date Status TIGIST GONZALEZ 05/05/2024 09:11:27 Final Observation Date Value Abnormality Reference (Units ) Status Glucose [Moles/volume] in Serum or Plasma --1 hour post 50 g glucose PO 05/05/2024 09:11:27 117 70-129 (mg/dL) Final Performing Location LAB[facility]ATORY [facility] [address] - [address] [place] [address]
--- OUTSIDE RECORDS SUMMARY | 2024-07-17 07:35 | External Medical Summary | Summary of Care ---
Author Name Unknown Organization [facility] Address [address] [place] [address] Phone [phone] Care Team Providers Care Linux Consultant Name Role Phone Toma Begum MD Prima ry Care Provider Reason for Visit * Reason Comments Return Visit Encounter Details Date Type Department Care Team (Late st Contact Info) Description 03/06/2024 8:30 AM EDT Office Visit Gynecology/Obstetric s [facility] [address] [place] [address] Cintia Zee CRNP [address] [place] [address] High-risk in second trimester*; Antepartum multigravida of advanced maternal age; Hx of thrombophlebitis; History of thyroid disorder; History of gestational hypertension Allergies No known active allergiesdocumented as of this encounter (statuses as of 03/06/2024) Medications Medication Sig Dispensed Refills Start Date End Date Status 28-0.8 MG Oral Tablet Take by mouth. Active documented as of this encounter (statuses as of 03/06/2024) Active Problems Problem Noted Date Diagnosed Date History of thyroid disorder 01/18/2024 Overview: Patient reports history of abnormal thyroid labs, which resolved with herbal medication. Reports recent labs WNL; no thyroid labs available for review today. TSH Results: No results found for: "TSH" Last Assessment & Plan: Recommend monitoring TSH with free T4 if indicated every trimester. If patient experiences thyroid goiter or nodule during , we recommend that she be referred to endocrinology for evaluation and management. is not a contraindication to fine needle aspiration, but should be handled at the discretion of the stretch machine operator. History of gestational hypertension 0 01/18/2024 Overview: Upon review of records from 2018 delivery and course at [facility], patient was diagnosed with gestational hypertension and prescribed labetalol following that delivery. Recommend bASA 81 mg daily as patient has several moderate risk factors for preeclampsia; including gestational hypertension and AMA. BP Readings from Last 5 Encounters: 01/10/24 116/72 12/17/23 116/64 07/17/23 108/74 10/15/20 123/74 01/12/16 110/66 Baseline Preeclampsia Labs Lab Results Component Value Date/Time PLT 237 01/10/2024 08:34 AM Last Assessment & Plan: CONSIDERATIONS: Explained to patient that in a [...] Antepartum multigravida of advanced maternal age 0712/17/2023 Overview: Ms. Kent will be 38 years-old at time of delivery (DIALLO 07/23/24). Genetic screening in process. Last Assessment & Plan: CONSIDERATIONS: We reviewed the most pertinent aspects [...] delivery by EDC. Hx of thrombophlebitis 12/17/2023 Overview: In 2018 patient presented with fever 3 [...] She had a similar presentation following her 2019 delivery, and was again diagnosed with septic [...] discussed this history with her OB in [facility] and would like to confirm plan of [...] is a concern for pelvic septic thrombophlebitis. Last Assessment & Plan: Consideration Patient with multiple prior episodes of [...] is a concern for pelvic septic thrombophlebitis. Estimated Date of Delivery Comme nts Yes 07/23/2024 Based on Ultraso und documented as of this encounter (statuses as of 03/06/2024) Resolved Problems Problem Noted Date Diagnosed Date Resolved Date 13 weeks gestation of 01/20/2024 02/07/2024 Last Assessment & Plan: -Continue with vitamins -Low risk Qnatal, no information on gender. -Continue routine OB care documented as of this encounter (statuses as of 03/06/2024) Social History Tobacco Use Types Packs/Day Years [...] money to get more. Never true 12/07/2023 [place] Depression Scale Answer Date Recorded [place] Depression Scale Total 7 12/17/2023 The thought [...] Assigned at Female 12/07/2023 10:45 AM EDT Gender Identity Female 12/07/2023 10:45 AM EDT Sexual Orientation Straight 12/07/2023 10 :45 AM EDT Job Start Date Occupation Industry Not on file Not on file Not on file documented as of this encounter Last Filed Vital Signs Vital Sign Reading Time Taken Comments Blood Pressure 108/64 03/06/2024 8:23 AM EDT Pulse - - Temperature - - Respiratory Rate - - Oxygen Saturation - - Inhaled Oxygen Concentration - - Weight 79.4 kg (175 lb) 03/06/2024 8:23 AM EDT Height - - Body Mass Index 31 01/10/2024 8:12 AM EDT documented in this encounter Progress Notes * Cintia Zee CRNP - 03/06/2024 8:29 AM EDT 20w1d Doing well, no cramping. Had 1 instance of brown discharge 2 weeks ago; none since, no active bleeding. Baby is active. Anatomy scan scheduled with [facility] later this week. 4 week return MARVIN Jones * Oxana Sierra LPN - 03/06/2024 8:23 AM EDT 20w1d Denies vaginal bleeding/rom + movement documented in this encounter Plan of Treatment Upcoming Encounters Date Type Department Care Team (Late st Contact Info) Description 03/08/2024 10:30 AM EDT Office Visit [facility]stetric[facility] Maternal Medicine, [place] [address] [place] [address] Milton Bradshaw MD [address] [place] [address] 03/08/2024 10:30 AM EDT Imaging Radiology [facility] [address] [place] [address] Health Maintenance Due Date Last Done Comments [...] 5 Years) and At-Risk Patients (6 to 64 Years) Aged Out No longer eligible based on patient's age to complete this topic documented as of this encounter Medical Devices Not on filedocumented as of this encounter Visit Diagnoses Diagnosis High-risk in second trimester- Primary Antepartum multigravida of advanced maternal age Hx of thrombophlebitis Personal history of thrombophlebitis History of thyroid disorder History of gestational hypertension documented in this encounter Care Teams Linux Consultant Relationship Specialty Start Date End Date Toma Begum MD [address] [place] [address] PCP - General Internal Medicine 07/24/23 documented as of this encounter
--- OUTSIDE RECORDS SUMMARY | 2024-07-17 07:35 | External Medical Summary | Summary of Care ---
Author Name Unknown Organization [facility] Address [address] [place] [address] Phone [phone] Care Team Providers Care Supervisor Wheel Shop Name Role Phone Toma Begum MD Prima ry Care Provider Reason for Visit * Reason Comments Return Visit Encounter Details Date Type Department Care Team (Late st Contact Info) Description 04/03/2024 8:45 AM EST Office Visit Gynecology/Obstetric [facility] [address] [place] [address] BackerCintia CRNP [address] [place] [address] High-risk in second trimester*; Antepartum multigravida of advanced maternal age; Hx of thrombophlebitis; History of thyroid disorder; History of gestational hypertension Allergies No known active allergiesdocumented as of this encounter (statuses as of 04/03/2024) Medications Medication Sig Dispensed Refills Start Date End Date Status 28-0.8 MG Oral Tablet Take by mouth. Active documented as of this encounter (statuses as of 04/03/2024) Active Problems Problem Noted Date Diagnosed Date [...] be handled at the discretion of the historic sites registrar. History of gestational hypertension 0 01/18/2024 Overview: Upon review of records from 2018 delivery and course at [facility], patient was diagnosed with gestational hypertension and [...] screening in process. Last Assessment & Plan: I reviewed the ultrasound with her. The anatomy that was visualized appears unremarkable and the biometry is appropriate for the gestational age. The amniotic fluid volume is subjectively normal. I reviewed her low risk noninvasive screen in light of normal ultrasound findings. Hx of thrombophlebitis 12/17/2023 Overview: In 2018 [...] discussed this history with her OB in [facility] and would like to confirm plan [...] as of this encounter (statuses as of 04/03/2024) Resolved Problems Problem Noted Date Diagnosed Date Resolved Date 13 weeks gestation of 01/20/2024 02/07/2024 Last Assessment & Plan: -Continue with vitamins -Low risk Qnatal, no information on gender. -Continue routine OB care documented as of this encounter (statuses as of 04/03/2024) Social History Tobacco Use Types Packs/Day Years [...] money to get more. Never true 12/07/2023 [place] Depression Scale Answer Date Recorded [place] Depression Scale Total 7 12/17/2023 The thought [...] Sign Reading Time Taken Comments Blood Pressure 98/60 04/03/2024 8:29 AM EST Pulse - - Temperature - - Respiratory Rate - - Oxygen Saturation - - Inhaled Oxygen Concentration - - Weight 79.8 kg (176 lb) 04/03/2024 8:29 AM EST Height - - Body Mass Index 31.18 01/10/2024 8:12 AM EDT documented in this encounter Progress Notes * Cintia Zee CRNP - 04/03/2024 8:40 AM EST 24w1d Doing well, no concerns. Baby is active. Denies leaking/bleeding or cramping. Discussed labs with next visit. MFM following for growth scans. 4 week return MRAVIN Jones * Oxana Sierra LPN - 04/03/2024 8:30 AM EST 24w1d Denies vaginal bleeding/rom + movement No new concerns documented in this encounter Plan of Treatment Upcoming Encounters Date Type Department Care Team (Late st Contact Info) Description 05/05/2024 8:20 AM EST Laboratory Laboratory, [facility] [address] [place] [id number] RamirezKhanh carranza [facility] [address] [facility] [place] [address] 05/05/2024 8:30 AM EST Office Visit Gynecology/Obstetrics [facility] [address] [place] [address] Roxana Trivedi CRNP [address] [facility] [place] [address] Scheduled Orders Name Type Priority Associated Diagnoses Orde r Schedule 50-G GESTATIONAL GLUCOSE, 1 HOUR Lab Routine High-risk in second trimester Expected: 05/03/2024 (Approximate), Expires: 04/03/2025 SYPHILIS ANTIBODY SCREEN WITH REFLEX TO RPR Lab Routine High-risk in second trimester Expected: 05/03/2024 (Approximate), Expires: 04/03/2025 CBC WITH WBC DIFFERENTIAL AND ANEMIA REFLEX WORKUP Lab Routine High-risk in second trimester Expected: 05/03/2024 (Approximate), Expires: 04/03/2025 Health Maintenance Due Date Last Done Comments [...] hypertension documented in this encounter Care Teams Supervisor Wheel Shop Relationship Specialty Start Date End Date Toma Begum MD [address] [address] PCP - General Internal Medicine 07/24/23 documented as of this encounter
--- OUTSIDE RECORDS SUMMARY | 2024-07-17 07:35 | External Medical Summary | Summary of Care ---
Author Name Unknown Organization [facility] Address [address] [place] [address] Phone [phone] Care Team Providers Care Air Analysis Technician Name Role Phone Toma Begum MD Prima ry Care Provider Encounter Details Date Type Department Care Team (Late st Contact Info) Description 06/02/2024 Telephone Gynecology/Obstetrics, [address] [place] [id number] Buzz Gomez MD [address] [place] [address] Allergies No known active allergiesdocumented as of this encounter (statuses as of 06/02/2024) Medications 28-0.8 MG Oral Tablet Take by mouth. Active documented as of this encounter (statuses as of 06/02/2024) Active Problems Problem Noted Date Diagnosed Date [...] be handled at the discretion of the telephone station installer. History of gestational hypertension 0 01/18/2024 Overview (01/18/2024): Upon review of records from 2018 delivery and course at [facility], patient was diagnosed with gestational hypertension [...] insurance coverage and cost ([place] [address]). Patient aware not all insurances cover this [...] discussed this history with her OB in [facility] and would like to confirm plan of [...] time. She plans to reach out to [facility] where she had previously established care. Assessment & Plan (12/17/2023 2:13 PM EDT): Hx septic pelvic thrombophlebitis x 2 - MFM referral made Estimated Date of Delivery Comme nts Yes 07/23/2024 Based on Ultraso und documented as of this encounter (statuses as of 06/02/2024) Resolved Problems Problem Noted Date Diagnosed Date Resolved Date 13 weeks gestation of 01/20/2024 02/07/2024 Assessment & Plan (01/20/2024 1:55 PM EDT): -Continue with vitamins -Low risk Qnatal, no information on gender. -Continue routine OB care documented as of this encounter (statuses as of 06/02/2024) Social History Tobacco Use Types Packs/Day Years [...] money to get more. Never true 12/07/2023 [place] Depression Scale Answer Date Recorded [place] Depression Scale Total 7 12/17/2023 The thought [...] encounter Miscellaneous Notes * Telephone Encounter - Rossana Harden RN - 06/02/2024 2:34 PM EST T/C from pt requesting to schedule next RPN appt. Needs scheduled week on 06/05/2024. Last seen on 05/23/2024. Please call pt to assist. No openings found. Derrick'dillon pt. documented in this encounter Plan of Treatment Upcoming Encounters Date Type Department Care Team (Late st Contact Info) Description 06/20/2024 8:30 AM EST Office Visit Gynecology/Obstetrics Rao Ramirez [address] [place] [address] Dimas Randolph MD [address] [place] [address] Health Maintenance Due Date Last Done Comments [...] filedocumented as of this encounter Care Teams Air Analysis Technician Relationship Specialty Start Date End Date Toma Begum MD [address] [address] PCP - General Internal Medicine 07/24/23 documented as of this encounter
--- OUTSIDE RECORDS SUMMARY | 2024-07-17 07:35 | External Medical Summary | Summary of Care ---
Author Name Unknown Organization [facility] Address [address] [place] [address] Phone [phone] Care Team Providers Care Asbestos Worker Helper Name Role Phone Toma Begum MD Prima ry Care Provider Reason for Visit * Reason Comments Return Visit Encounter Details Date Type Department Care Team (Late st Contact Info) Description 07/05/2024 2:00 PM EST Office Visit Gynecology/Obstetric [facility] [address] [place] [address] Buzz Gomez MD [address] [place] [address] High-risk in third trimester*; Antepartum multigravida of advanced maternal age; Hx of thrombophlebitis; History of thyroid disorder; History of gestational hypertension; Excessive growth affecting management of , antepartum, single or unspecified fetus; renal anomaly, single gestation Allergies No known active allergiesdocumented as of this encounter (statuses as of 07/06/2024) Medications 28-0.8 MG Oral Tablet Take by mouth. Active documented as of this encounter (statuses as of 07/06/2024) Active Problems Problem Noted Date Diagnosed Date [...] be handled at the discretion of the loom overhauler. History of gestational hypertension 0 01/18/2024 Overview (01/18/2024): Upon review of records from 2018 delivery and course at [facility], patient was diagnosed with gestational hypertension and [...] insurance coverage and cost ([place] [address]). Patient aware not all insurances cover this [...] discussed this history with her OB in [facility] and would like to confirm plan [...] time. She plans to reach out to [facility] Hem/Onc where she had previously established care. Assessment & Plan (12/17/2023 2:13 PM EDT): Hx septic pelvic thrombophlebitis x 2 - MFM referral made Estimated Date of Delivery Comme nts Yes 07/23/2024 Based on Ultraso und documented as of this encounter (statuses as of 07/06/2024) Resolved Problems Problem Noted Date Diagnosed Date Resolved Date 13 weeks gestation of 01/20/2024 02/07/2024 Assessment & Plan (01/20/2024 1:55 PM EDT): -Continue with vitamins -Low risk Qnatal, no information on gender. -Continue routine OB care documented as of this encounter (statuses as of 07/06/2024) Social History Tobacco Use Types Packs/Day Years [...] money to get more. Never true 12/07/2023 [place] Depression Scale Answer Date Recorded [place] Depression Scale Total 4 06/09/2024 The thought [...] No 12/07/2023 Does the household have a [facility] source of income? (Household - for ages [...] Sign Reading Time Taken Comments Blood Pressure 118/64 07/05/2024 2:03 PM EST Pulse - - Temperature - - Respiratory Rate - - Oxygen Saturation - - Inhaled Oxygen Concentration - - Weight 86.2 kg (190 lb) 07/05/2024 2:03 PM EST Height 160 cm (5' 3") 07/05/2024 2:03 PM EST Body Mass Index 33.66 07/05/2024 2:03 PM EST documented in this encounter Progress Notes * Buzz Gomez MD - 07/05/2024 2:10 PM EST 1st time seeing pt Reviewed problem list Discussed tx plan ( Hx of Septic pelvic thrombophlebitis) from hematology and M with pt Discussed her LGA scan as well Pt's largest baby was 3900 grams. Last scan was 3698 grams. We have discussed risk of shoulder dystocia and c/sec Pt wishes to try vagal delivery We have therefore agreed on induction of labor at 39 weeks * Alva Wells LPN - 07/05/2024 2:00 PM EST 37w3d Discuss LGA Had septic pelvic thrombosis with last 2 pregnancies documented in this encounter Plan of Treatment Upcoming Encounters Date Type Department Care Team (Late st Contact Info) Description 07/12/2024 8:00 AM EST Office Visit Gynecology/Obstetrics Rao Ramirez [address] [place] [address] Arlene Freed, ISAIAH, CNM [address] [place] [address] Health Maintenance Due Date Last Done Comments Diabetes Screening 1983 Lipid Panel 1983 Depression Screening 1995 Hepatitis B Vaccine (1 of 3 - 19+ 3-dose series) 11/23/2002 COVID-19 Vaccine (2023- season) 2024 Influenza Vaccine (FLU shot) (#1) [...] gestational hypertension Excessive growth affecting management of , antepartum, single or unspecified fetus renal anomaly, single gestation documented in this encounter Care Teams Asbestos Worker Helper Relationship Specialty Start Date End Date Toma Begum MD [address] [place] [address] PCP - General Internal Medicine 07/24/23 documented as of this encounter
--- OUTSIDE RECORDS SUMMARY | 2024-07-17 07:35 | External Medical Summary | Summary of Care ---
Author Name Unknown Organization [facility] Address [address] [place] [address] Phone [phone] Care Team Providers Care Demolitionist Name Role Phone Toma Begum MD Prima ry Care Provider Encounter Details Date Type Department Care Team (Late st Contact Info) Description 06/02/2024 Telephone Gynecology/Obstetrics, [address] [place] [phone] Buzz Gomez MD [address] [place] [address] Allergies No known active allergiesdocumented as [...] be handled at the discretion of the surgical services tech. History of gestational hypertension 0 01/18/2024 Overview (01/18/2024): Upon review of records from 2018 delivery and course at [facility], patient was diagnosed with gestational hypertension [...] insurance coverage and cost ([place] [address]). Patient aware not all insurances cover this [...] discussed this history with her OB in [facility] and would like to confirm [...] money to get more. Never true 12/07/2023 [place] Depression Scale Answer Date Recorded [place] Depression Scale Total 7 12/17/2023 The thought [...] Visit Gynecology/Obstetrics Rao Ramirez [address] [place] [address] Dimas Randolph MD [address] [place] [address] [...] filedocumented as of this encounter Care Teams Demolitionist Relationship Specialty Start Date End Date Toma Begum MD [address] [address] PCP - General Internal Medicine 07/24/23 documented as of this encounter
--- OUTSIDE RECORDS SUMMARY | 2024-07-17 07:35 | External Medical Summary ---
Author Name Unknown Address Unknown Organization [id number]:LABORATORY [facility] [place] - [address] [place] [address] Laboratory Report Ordering Provider Test Date Status TIGIST GONZALEZ 05/05/2024 09:11:27 Final Observation Date Value Abnormality Reference (Units ) Status Vitamin B12 05/05/2024 09:11:27 272 919-6285 (pg/mL) Final Performing Location [facility] - [address] [place] [address]
--- OUTSIDE RECORDS SUMMARY | 2024-07-17 07:35 | External Medical Summary ---
Author Name Unknown Address Unknown Organization [id number]:[facility]ORY [facility] [place] [address] [place] [address] Laboratory Report Ordering Provider Test Date Status TIGIST GONZALEZ 05/05/2024 09:11:27 Final Observation Date Value Abnormality Reference (Units ) Status Iron 05/05/2024 09:11:27 121 33-151 (ug /dL) Final Iron-binding capacity 05/05/2024 09:11:27 425 250-425 (ug/dL) Final Transferrin Sat % 05/05/2024 09:11:27 28 15 -55 (%) Final Performing Location LAB[facility]ATORY [facility] [place] [address] [place] [address]
--- OUTSIDE RECORDS SUMMARY | 2024-07-17 07:35 | External Medical Summary | Summary of Care ---
Author Name Unknown Organization [facility] Address [address] [place] [address] Phone [phone] Care Team Providers Care Screw Machine Set Up Operator Tool Name Role Phone Toma Begum MD [facility] Care Provider Reason for Visit * Reason Comments Outpatient Testing Encounter Details Date Type Department Care Team (Late st Contact Info) Description 05/05/2024 8:20 AM EST Laboratory Laboratory, [facility] [address] [place] [id number] [facility] [address] [place] [address] High-risk in second trimester Allergies No known active allergiesdocumented as of this encounter (statuses as of 05/05/2024) Medications 28-0.8 MG Oral Tablet Take by mouth. Active documented as of this encounter (statuses as of 05/05/2024) Active Problems Problem Noted Date Diagnosed Date [...] be handled at the discretion of the relief captain. History of gestational hypertension 0 01/18/2024 Overview (01/18/2024): Upon review of records from 2018 delivery and course at [facility], patient was diagnosed with gestational hypertension and [...] insurance coverage and cost [place] [address]). Patient aware not all insurances cover this [...] discussed this history with her OB in [facility] and would like to confirm plan [...] time. She plans to reach out to [facility] Hem/Onc where she had previously established care. 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 -Continue routine OB care documented as of this encounter (statuses as of 05/05/2024) Social History Tobacco Use Types Packs/Day Years [...] money to get more. Never true 12/07/2023 [place] Depression Scale Answer Date Recorded [place] Depression Scale Total 7 12/17/2023 The thought [...] Care Team (Late st Contact Info) Description 05/23/2024 1:15 PM EST Imaging Radiology [facility] 2nd [facility] 132 [facility] [place] [address] 05/23/2024 2:15 PM EST Office Visit Gynecology/Obstetrics [facility] 132 [facility] [place] [address] Roxana Trivedi CRNP 132 [facility] [place] [address] Pending Results Name Type Priority Associated Diagnoses Date /Time 50-G GESTATIONAL GLUCOSE, 1 HOUR Lab Routine High-risk in second trimester 05/05/2024 9:11 AM EST SYPHILIS ANTIBODY SCREEN WITH REFLEX TO RPR Lab Routine High-risk in second trimester 05/05/2024 9:11 AM EST CBC WITH WBC DIFFERENTIAL AND ANEMIA REFLEX WORKUP Lab Routine High-risk in second trimester 05/05/2024 9:11 AM EST SYPHILIS ANTIBODY SCREEN Lab Routine High-risk in second trimester 05/05/2024 9:11 AM EST ANEMIA CBC Lab Routine High-risk in second trimester 05/05/2024 9:11 AM EST DIFFERENTIAL, AUTOMATED Lab Routine High-risk in second trimester 05/05/2024 9:11 AM EST ANEMIA REFLEX CHEMISTRY HOLD Lab Routine High-risk in second trimester 05/05/2024 9:11 AM EST Health Maintenance Due Date Last Done Comments [...] thrombophlebitis Personal history of thrombophlebitis High-risk in second trimester documented in this encounter Care Teams Screw Machine Set Up Operator Tool Relationship Specialty Start Date End Date Toma Begum MD [address] [place] [address] PCP - General Internal Medicine 07/24/23 documented as of this encounter
--- OUTSIDE RECORDS SUMMARY | 2024-07-17 07:35 | External Medical Summary | Summary of Care ---
Author Name Unknown Organization [facility] Address [address] [place] [address] Phone [phone] Care Team Providers Care Sumatra Opener Name Role Phone Toma Begum MD Prima ry Care Provider Reason for Visit * Reason Comments Return Visit Encounter Details Date Type Department Care Team (Late st Contact Info) Description 05/23/2024 2:15 PM EST Office Visit Gynecology/Obstetric s [facility] [address] [place] [address] Roxana Trivedi CRNP [address] [facility] [place] [address] High-risk in third trimester*; Antepartum multigravida of advanced maternal age; Hx of thrombophlebitis; History of thyroid disorder; History of gestational hypertension Allergies No known active allergiesdocumented as of this encounter (statuses as of 05/23/2024) Medications 28-0.8 MG Oral Tablet Take by mouth. Active documented as of this encounter (statuses as of 05/23/2024) Active Problems Problem Noted Date Diagnosed Date [...] be handled at the discretion of the wardrobe supervisor. History of gestational hypertension 0 01/18/2024 Overview (01/18/2024): Upon review of records from 2018 delivery and course at [facility], patient was diagnosed with gestational hypertension and [...] insurance coverage and cost ([place] [address]). Patient aware not all insurances cover this [...] this history with her OB in [facility] and would like to confirm plan [...] time. She plans to reach out to [facility] where she had previously established care. 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 -Continue routine OB care documented as of this encounter (statuses as of 05/23/2024) Social History Tobacco Use Types Packs/Day Years [...] money to get more. Never true 12/07/2023 [place] Depression Scale Answer Date Recorded [place] Depression Scale Total 7 12/17/2023 The thought [...] Sign Reading Time Taken Comments Blood Pressure 110/62 05/23/2024 1:33 PM EST Pulse - - Temperature - - Respiratory Rate - - Oxygen Saturation - - Inhaled Oxygen Concentration - - Weight 83.3 kg (183 lb 9.6 oz) 05/23/2024 1:33 P M EST Height - - Body Mass Index 32.52 01/10/2024 8:12 AM EDT documented in this encounter Progress Notes * Roxana Trivedi CRNP - 05/23/2024 1:51 PM EST 31w2d Growth u/s today- LGA. Formal report pending. Glucola done 2 weeks ago. No other concerns. Baby is active. No contractions, bleeding, LOF. Discussed RSV vaccine, declines. MARVIN Lopez * Leeann Valero CMA - 05/23/2024 1:33 PM EST 31w2d Growth 97% AQUILINO 19.0 Denies any concerns documented in this encounter Plan of Treatment Health Maintenance Due Date Last Done Comments Diabetes Screening 1983 Lipid Panel 1983 Depression Screening 1995 Hepatitis B Vaccine (1 of 3 - 19+ 3-dose series) 11/23/2002 COVID-19 Vaccine (1 - season) 2024 Influenza Vaccine (FLU shot) [...] hypertension documented in this encounter Care Teams Sumatra Opener Relationship Specialty Start Date End Date Toma Begum MD [address] [place] [address] PCP - General Internal Medicine 07/24/23 documented as of this encounter
--- OUTSIDE RECORDS SUMMARY | 2024-07-17 07:35 | External Medical Summary ---
Author Name Unknown Address Unknown Organization K01:LABORATORY [place] [address] [place] [address] Laboratory Report Ordering Provider Test Date Status TIGIST GONZALEZ 06/27/2024 08:55:08 Final Observation Date Value Abnormality Reference (Units ) Status Streptococcus agalactiae DNA [Presence] in Specimen by WENDIE with probe detection 06/27/2024 08:55:08 Negative Negative Final No Group B Streptococcus det ected by culture-enhanced PCR (amplified probe). [facility] - [facility] 06/27/2024 08:55:08 0.0 Final GBS SPC[facility] - [facility] 06/27/2024 08:55:08 33.2 Final Performing Location [facility] [place] [address]
--- OUTSIDE RECORDS SUMMARY | 2024-07-17 07:35 | External Medical Summary | Summary of Care ---
Author Name Unknown Organization [facility] Address [address] [place] [address] Phone [phone] Care Team Providers Care Derrick Boat Runner Name Role Phone Toma Begum MD Prima ry Care Provider Reason for Visit * Reason Onset Date Comments Referral 01/10/2024 Encounter Details Date Type Department Care Team (Late st Contact Info) Description 01/10/2024 Telephone Emergency Medicine Obstetrics Maternal [facility], [place] [address] [place], [place] [phone] [place], Nurse Emergency Medicine [facility] [address], [place] [phone] Referral Allergies No known active allergiesdocumented as of this encounter (statuses as of 04/10/2024) Medications 28-0.8 MG Oral Tablet Take by mouth. Active documented as of this encounter (statuses as of 04/10/2024) Active Problems Problem Noted Date Diagnosed Date [...] be handled at the discretion of the shipper receiver. History of gestational hypertension 0 01/18/2024 Overview (01/18/2024): Upon review of records from 2018 delivery and course at [facility], patient was diagnosed with gestational hypertension and [...] insurance coverage and cost ([place] [address]). Patient aware not all insurances cover this [...] discussed this history with her OB in [facility] and would like to confirm [...] time. She plans to reach out to [facility] Hem[facility]Onc where she had previously established care. 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 -Continue routine OB care documented as of this encounter (statuses as of 04/10/2024) Social History Tobacco Use Types Packs/Day Years [...] money to get more. Never true 12/07/2023 [place] Depression Scale Answer Date Recorded [place] Depression Scale Total 7 12/17/2023 The thought [...] Orientation Straight 12/07/2023 10 :45 AM EDT documented as of this encounter Miscellaneous Notes * Telephone Encounter - Tierra Mccann OSA - 01/10/2024 10:11 AM EDT Spoke with Arlene. Appointment scheduled. Patient aware of date, time and location of Maternal Medicine appointment. * Telephone Encounter - Marta Holland CCMA - 01/10/2024 9:16 AM EDT Estimated Date of Delivery: 07/23/24 Please schedule for 45 MINUTE CONSULT SIMPLE MEDICAL WITH SECURITY CHIEF MUSEUM, in time frame of next available or atpatient's earliest convenience at location [facility] with the indication of AMA (38), hx septic pelvic thrombophlebitis x2. Please schedule limited anatomy between 14d2h-53k4r weeks (now-01/23/24) Please schedule anatomy between 19-21 weeks (02/28/24-03/13/24). Referring Provider: Natalie Cifuentes CNM documented in this encounter Plan of Treatment Upcoming Encounters Date Type Department Care Team (Late st Contact Info) Description 05/05/2024 8:20 AM EST Laboratory Laboratory, [facility] [address] [place] [phone] James Khanh Mezas [address] [place] [address] 05/05/2024 8:30 AM EST Office Visit Gynecology/Obstetrics [facility] [address] [place] [address] Roxana Trivedi CRNP [address] [place] [address] Health Maintenance Due Date Last Done Comments Diabetes Screening 1983 Lipid Panel 1983 Depression Screening 1995 Hepatitis B Vaccine (1 of 3 - 19+ 3-dose series) 11/23/2002 COVID-19 Vaccine ( - season) 2024 Influenza Vaccine (FLU shot) (#1) 2024 Mammogram 11/29/2024 11/30/2023, 0707/2023, 11/25/2023, Additional history exists Pap Smear 12/16/2026 [...] filedocumented as of this encounter Care Teams Derrick Boat Runner Relationship Specialty Start Date End Date Toma Begum MD [address] [place] [address] PCP - General Internal Medicine 07/24/23 documented as of this encounter
--- OUTSIDE RECORDS SUMMARY | 2024-07-17 07:35 | External Medical Summary | Summary of Care ---
Author Name Unknown Organization [facility] Address [address] [place] [address] Phone [phone] Care Team Providers Care Digital Design Engineer Name Role Phone Toma Begum MD Prima ry Care Provider Reason for Visit * Reason Comments Return Visit Encounter Details Date Type Department Care Team (Late st Contact Info) Description 05/05/2024 8:30 AM EST Office Visit Gynecology/Obstetric s [facility] [address] [place] [address] Roxana Trivedi CRNP [address] [place] [address] High-risk in third trimester*; Antepartum multigravida of [...] be handled at the discretion of the outboard motor inspector. History of gestational hypertension 0 01/18/2024 Overview (01/18/2024): Upon review of records from 2018 delivery and course at [facility], patient was diagnosed with gestational hypertension [...] insurance coverage and [place] ([place] [address]). Patient aware not all insurances cover this [...] history with her OB in [facility] and would like to confirm plan [...] time. She plans to reach out to [facility] where she had previously established care. [...] money to get more. Never true 12/07/2023 [place] Depression Scale Answer Date Recorded [place] Depression Scale Total 7 12/17/2023 The thought [...] Sign Reading Time Taken Comments Blood Pressure 108/62 05/05/2024 8:17 AM EST Pulse - - Temperature - - Respiratory Rate - - Oxygen Saturation - - Inhaled Oxygen Concentration - - Weight 82.2 kg (181 lb 3.2 oz) 05/05/2024 8:17 A M EST Height - - Body Mass Index 32.1 01/10/2024 8:12 AM EDT documented in this encounter Progress Notes * Roxana Trivedi CRNP - 05/05/2024 8:33 AM EST 28w5d Complaints: none. Fell on her hip a few days ago, feels fine. Denies cramping/bleeding/contractions. Baby moving well after fall. Feeling well. Good FM. No contractions, bleeding, or LOF. Glucola today. Declines TDAP. Growth u/s with next visit. MARVIN Lopez * Leeann Valero CMA - 05/05/2024 8:17 AM EST 28w5d Did have a fall on Wednesday night, no concerns. Landed on left hip. Declines TDAP. documented in this encounter Plan of Treatment Upcoming Encounters Date Type Department Care Team (Late st Contact Info) Description 05/23/2024 1:15 PM EST Imaging Radiology [facility] 2nd Floor, [place] [address] [place] [address] 05/23/2024 2:15 PM EST Office Visit Gynecology/Obstetrics [facility] [place] [address] Roxana Trivedi CRNP [address] [place] [address] Scheduled Orders Name Type Priority Associated Diagnoses Orde r Schedule US PREG FOLLOW-UP EACH FETUS Medical Imaging Routine High-risk in third trimester Antepartum multigravida of advanced maternal age Expected: 05/19/2024 (Approximate), Expires: 06/05/2025 Health Maintenance Due Date Last Done Comments [...] hypertension documented in this encounter Care Teams Digital Design Engineer Relationship Specialty Start Date End Date Toma Begum MD [address] [place] [address] PCP - General Internal Medicine 07/24/23 documented as of this encounter
--- OUTSIDE RECORDS SUMMARY | 2024-07-17 07:35 | External Medical Summary ---
Author Name Unknown Address Unknown Organization K0G:LABORATORY [facility] - [address] [place] [address] Laboratory Report Ordering Provider Test Date Status TIGIST GONZALEZ 05/05/2024 09:11:27 Final Observation Date Value Abnormality Reference (Units ) Status WBC, Total 05/05/2024 09:11:27 10.82 Above high normal 4 .00-10.80 (K/uL) Final RBC 05/05/2024 09:11:27 3.82 3.85-5.15 (M/uL) Final Hemoglobin 05/05/2024 09:11:27 11.8 Below low normal 12 .0-15.3 (g/dL) Final Anemia reflex testing trigge rs on a HGB < 12.0 for Females and HGB < 13.0 for Males in accordance with the WHO Anemia Guidelines
Anemia reflex testing triggers on a HGB < 12.0 for Females and HGB < 13.0 for Males in accordance with the WHO Anemia Guidelines HCT 05/05/2024 09:11:27 34.8 Below low normal 36. 0-45.2 (%) Final MCV 05/05/2024 09:11:27 91.1 81.5-97.5 (fL) Final MCH 05/05/2024 09:11:27 30.9 27.0-34.0 (pg) Final MCHC 05/05/2024 09:11:27 33.9 32.0-36.0 (g/dL) Final RDW 05/05/2024 09:11:27 13.6 11.5-15.5 (%) Final Platelets 05/05/2024 09:11:27 201 140-400 (K /uL) Final MPV 05/05/2024 09:11:27 11.3 6.6-11.1 ( fL) Final Performing Location LABORATORY [facility] - [address] [place] [address]
--- OUTSIDE RECORDS SUMMARY | 2024-07-17 07:35 | External Medical Summary | Summary of Care ---
Author Name Unknown Organization [facility] Address [address] [place] [address] Phone [phone] Care Team Providers Care Mercerizer Name Role Phone Toma Begum MD Prima ry Care Provider Reason for Visit * Reason Comments Ultrasound Encounter Details Date Type Department Care Team (Latest Contact Info) Description 03/08/2024 10:30 AM EDT Office Visit Program Trainer Obstetrics Maternal Medicine, [place] [address] [place], [place] [phone] Milton Bradshaw MD [address] [place], [place] [phone] Antepartum multigravida of advanced maternal age*; History of gestational hypertension; Hx of thrombophlebitis Allergies No known active allergiesdocumented as of this encounter (statuses as of 03/08/2024) Medications Medication Sig Dispensed Refills Start Date End Date Status 28-0.8 MG Oral Tablet Take by mouth. Active documented as of this encounter (statuses as of 03/08/2024) Active Problems Problem Noted Date Diagnosed Date [...] be handled at the discretion of the anesthesiologists' assistant. History of gestational hypertension 0 01/18/2024 Overview: Upon review of records from 2018 delivery and course at [facility], patient was diagnosed with gestational hypertension and [...] discussed this history with her OB in [facility] and would like to confirm plan of [...] as of this encounter (statuses as of 03/08/2024) Resolved Problems Problem Noted Date Diagnosed Date Resolved Date 13 weeks gestation of 01/20/2024 02/07/2024 Last Assessment & Plan: -Continue with vitamins -Low risk Qnatal, no information on gender. -Continue routine OB care documented as of this encounter (statuses as of 03/08/2024) Social History Tobacco Use Types Packs/Day Years [...] money to get more. Never true 12/07/2023 [place] Depression Scale Answer Date Recorded [place] Depression Scale Total 7 12/17/2023 The thought [...] on file documented as of this encounter Progress Notes * Milton Bradshaw MD - 03/08/2024 10:36 AM EDT MATERNAL MEDICINE VISIT Arlene Smyth is at 20w3d who presents to [facility] for an ultrasound and follow-up of her high risk . The patient is currently 20 weeks and 3 days gestation with advanced maternal age, she will be 38 years of age at delivery. She has a low risk noninvasive screen during this . 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 She saw Hematology because of this and they recommend prophylaxis with Lovenox following delivery. She comes in for an evaluation of anatomy. She is being seen today by Maternal- Medicine for the following reasons: Problem List Items Addressed This Visit Antepartum multigravida of advanced maternal age - Primary I reviewed the ultrasound with her. The anatomy that was visualized appears unremarkable and the biometry is appropriate for the gestational age. The amniotic fluid volume is subjectivelynormal. I reviewed her low risk noninvasive screen in light of normal ultrasound findings. Hx of thrombophlebitis History of gestational hypertension RECOMMENDATIONS: Recommend surveillance starting at 38 weeks secondary to advanced maternal age, 38 years of age at delivery. Recommend follow up ultrasound with MFM in 10 weeks for growth secondary to advanced maternalage, 38 years of age at delivery. Recommend delivery at 39 weeks gestation. Thank you for allowing us to participate in the care of this patient. Please call with any questions. I spent 20 minutes with Ms. Smyth of which greater than 50% was spent in face to face consultation and coordination of care for the above. Milton Bradshaw MD 03/08/2024 10:36 AM documented in this encounter Miscellaneous Notes * Assessment & Plan Note - Milton Bradshaw MD - 03/08/2024 11:11 AM EDT Associated Problem(s): Antepartum multigravida of advanced maternal age I reviewed the ultrasound with her. The anatomy that was visualized appears unremarkable and the biometry is appropriate for the gestational age. The amniotic fluid volume is subjectivelynormal. I reviewed her low risk noninvasive screen in light of normal ultrasound findings. documented in this encounter Plan of Treatment [...] as of this encounter Visit Diagnoses Diagnosis Antepartum multigravida of advanced maternal age- Primary History of gestational hypertension Hx of thrombophlebitis Personal history of thrombophlebitis documented in this encounter Care Teams Mercerizer Relationship Specialty Start Date End Date Toma Begum MD [address] [place] [address] PCP - General Internal Medicine 07/24/23 documented as of this encounter
--- OUTSIDE RECORDS SUMMARY | 2024-07-17 07:35 | External Medical Summary ---
Author Name Unknown Address Unknown Organization K01:LABORATORY [facility] - [address] [place] [address] Laboratory Report Ordering Provider Test Date Status CARLOS,TIGIST 05/05/2024 09:11:27 Final Observation Date Value Abnormality Reference (Units ) Status TSH 05/05/2024 09:11:27 1.87 0.27-4.20 (uIU/mL) Final Performing Location [facility] - [address] [place] [address]
--- OUTSIDE RECORDS SUMMARY | 2024-07-17 07:35 | External Medical Summary ---
Author Name Unknown Address Unknown Organization K01:[facility]ORY [facility] [place] [address] [place] [address] Laboratory Report Ordering Provider Test Date Status LEROY GONZALEZJACIEL 05/05/2024 09:11:27 Final Observation Date Value Abnormality Reference (Units ) Status Ferritin 05/05/2024 09:11:27 35 13-150 (ng /mL) Final Postmenopausal women have hi gher ferritin levels than pre-menopausal women. The above reference interval is based on pre-menopausal women. Performing Location [facility] - [address] [place] [address]
--- OUTSIDE RECORDS SUMMARY | 2024-07-17 07:35 | External Medical Summary ---
Author Name Unknown Address Unknown Organization [id number]:LABORATORY [facility] [place] [facility] [address] [facility] [address] Laboratory Report Ordering Provider Test Date Status TIGIST GONZALEZ 05/05/2024 09:11:27 Final Observation Date Value Abnormality Reference (Units ) Status Retic, % (auto) 05/05/2024 09:11:27 2.78 Above high normal 0.80-1.90 (%) Final Reticulocytes, Absolute 05/05/2024 09:11:27 107.0 Above high normal 31.3-100.1 (K/uL) Final Reticulocyte fraction, immature 05/05/2024 09:11:27 24.8 Above high normal 2.5-20.6 (%) Final Reticulocyte HGB 05/05/2024 09:11:27 33.8 29.7-37.4 (pg) Final Performing Location LABORATORY [facility] [place] [facility] [address] [facility] [address]
--- OUTSIDE RECORDS SUMMARY | 2024-07-17 07:35 | External Medical Summary | Summary of Care ---
Author Name Unknown Organization [facility] Address [address] [place] [address] Phone [phone] Care Team Providers Care Caseworker Protective Services Name Role Phone Toma Begum MD Prima ry Care Provider Reason for Visit * Reason Comments Ultrasound Encounter Details Date Type Department Care Team (Latest Contact Info) Description 03/08/2024 10:30 AM EDT Office Visit Sample Card Maker Obstetrics Maternal Medicine, [place] [address] [place], [place] [phone] Milton Bradshaw MD [address] [place], [place] [phone] Antepartum multigravida of advanced maternal age*; History [...] be handled at the discretion of the golf coach. History of gestational hypertension 0 01/18/2024 Overview: Upon review of records from 2018 delivery and course at [facility], patient was diagnosed with gestational hypertension and [...] discussed this history with her OB in [facility] and would like to confirm plan [...] money to get more. Never true 12/07/2023 Rousseau Depression Scale Answer Date Recorded Rousseau Depression Scale Total 7 12/17/2023 The thought [...] Smyth is at 20w3d who presents to [facility] for an ultrasound and follow-up of her [...] thrombophlebitis documented in this encounter Care Teams Caseworker Protective Services Relationship Specialty Start Date End Date Toma Begum MD [address] [place] [address] PCP - General Internal Medicine 07/24/23 documented as of this encounter
--- OUTSIDE RECORDS SUMMARY | 2024-07-17 07:35 | External Medical Summary ---
Author Name Unknown Address Unknown Organization [id number]:LABORATORY [facility] - [address] [place] [address] Laboratory Report Ordering Provider Test Date Status TIGIST GONZALEZ 05/05/2024 09:11:27 Final Observation Date Value Abnormality Reference (Units ) Status SYNC LEUKOCYTES IN BLOOD BY AUTOMATED COUNT 05/05/2024 09:11:27 10.82 Above high normal 4.00-10.80 (K/uL) Final Segs 05/05/2024 09:11:27 77.4 Above high normal 40.0-75.0 (%) Final Lymphs % 05/05/2024 09:11:27 13.8 Below low normal 18.0-42.0 (%) Final Monos 05/05/2024 09:11:27 7.1 1.0-11.0 (%) Final Eosinophils 05/05/2024 09:11:27 1.5 0.0-6.0 (%) Final Basos 05/05/2024 09:11:27 0.2 0.0-2.0 (%) Final Absolute Segs 05/05/2024 09:11:27 8.38 Above high normal 1.80-7.70 (K/uL) Final Lymphs, absolute 05/05/2024 09:11:27 1.49 1.00-4.80 (K/ul) Final Monos, Abs 05/05/2024 09:11:27 0.77 0.00-1.10 (K/uL) Final Eos, Abs 05/05/2024 09:11:27 0.16 0.00-0.70 (K/uL) Final Basos, Abs 05/05/2024 09:11:27 0.02 0.00-0.20 (K/uL) Final Performing Location LABORATORY [facility] - [address] [place] [address]
--- OUTSIDE RECORDS SUMMARY | 2024-07-17 07:35 | External Medical Summary ---
Author Name Unknown Address Unknown Organization [id number]:[facility] [place] [address] [place] [address] Laboratory Report Ordering Provider Test Date Status TIGIST GONZALEZ 05/05/2024 09:11:27 Final Observation Date Value Abnormality Reference (Units ) Status Folic Acid 05/05/2024 09:11:27 16.7 >4.5 (ng/ mL) Final Performing Location LABORATORY [facility] - [address] [place] [address]
--- OUTSIDE RECORDS SUMMARY | 2024-07-17 07:35 | External Medical Summary | Summary of Care ---
Author Name Unknown Organization [facility] Address [address] [place] [address] Phone [phone] Care Team Providers Care Alkylation Operator Name Role Phone Toma Begum MD Prima ry Care Provider Reason for Visit * Reason Comments Return Visit Encounter Details Date Type Department Care Team (Late st Contact Info) Description 06/09/2024 1:45 PM EST Office Visit Gynecology/Obstetric [facility] [address] [place] [address] BackCintia leach CRNP [address] [place] [address] High-risk in third trimester*; Antepartum multigravida of advanced maternal age; Hx of thrombophlebitis; History of thyroid disorder; History of gestational hypertension Allergies No known active allergiesdocumented as of this encounter (statuses as of 06/09/2024) Medications 28-0.8 MG Oral Tablet Take by mouth. Active documented as of this encounter (statuses as of 06/09/2024) Active Problems Problem Noted Date Diagnosed Date [...] be handled at the discretion of the roustabout crew leader. History of gestational hypertension 0 01/18/2024 Overview (01/18/2024): Upon review of records from 2018 delivery and course at [facility], patient was diagnosed with gestational hypertension [...] [place] [address]). Patient aware not all insurances cover this [...] discussed this history with her OB in [facility] and would like to confirm [...] She plans to reach out to [facility] where she had previously established care. Assessment & Plan (12/17/2023 2:13 PM EDT): Hx septic pelvic thrombophlebitis x 2 - MFM referral made Estimated Date of Delivery Comme nts Yes 07/23/2024 Based on Ultraso und documented as of this encounter (statuses as of 06/09/2024) Resolved Problems Problem Noted Date Diagnosed Date Resolved Date 13 weeks gestation of 01/20/2024 02/07/2024 Assessment & Plan (01/20/2024 1:55 PM EDT): -Continue with vitamins -Low risk Qnatal, no information on gender. -Continue routine OB care documented as of this encounter (statuses as of 06/09/2024) Social History Tobacco Use Types Packs/Day Years [...] money to get more. Never true 12/07/2023 [place] Depression Scale Answer Date Recorded [place] Depression Scale Total 7 12/17/2023 The thought [...] Sign Reading Time Taken Comments Blood Pressure 116/66 06/09/2024 1:36 PM EST Pulse - - Temperature - - Respiratory Rate - - Oxygen Saturation - - Inhaled Oxygen Concentration - - Weight 84.8 kg (187 lb) 06/09/2024 1:36 PM EST Height - - Body Mass Index 33.13 01/10/2024 8:12 AM EDT documented in this encounter Progress Notes * Cintia Zee CRNP - 06/09/2024 1:50 PM EST 33w5d Doing well, good movement. No leaking, bleeding, ctx. Desires salpingectomy . Provided w/labor instructions. EFW LGA at 31 weeks, will obtain repeat growth scan with next visit. Return in 2 weeks. MARVIN Jones * Oxaan Sierra LPN - 06/09/2024 1:36 PM EST 33w5d Denies vaginal bleeding/rom + movement No new concerns documented in this encounter Plan of Treatment Upcoming Encounters Date Type Department Care Team (Late st Contact Info) Description 06/27/2024 7:45 AM EST Imaging Radiology [facility] [address] [place] [address] 06/27/2024 8:45 AM EST Office Visit Gynecology/Obstetrics [facility] [address] [place] [address] Backer, MARVIN De Jesus [address] [place] [address] Scheduled Orders Name Type Priority Associated Diagnoses Orde r Schedule US PREG FOLLOW-UP EACH FETUS Medical Imaging Routine High-risk in third trimester Expected: 06/23/2024 (Approximate), Expires: 07/10/2025 Health Maintenance Due Date Last Done Comments [...] hypertension documented in this encounter Care Teams Alkylation Operator Relationship Specialty Start Date End Date Toma Begum MD [address] [address] PCP - General Internal Medicine 07/24/23 documented as of this encounter
--- OUTSIDE RECORDS SUMMARY | 2024-07-17 07:35 | External Medical Summary ---
Author Name Unknown Address Unknown Organization K01[place] [facility] [place] [address] [facility] [address] Laboratory Report Ordering Provider Test Date Status TIGIST GONZALEZ 05/05/2024 09:11:27 Final Observation Date Value Abnormality Reference (Units ) Status Treponema pallidum Ab [Presence] in Serum by Immunoassay 05/05/2024 09:11:27 Nonreactive Nonreactive Final No serologic evidence of syp hilis. No additional testing clinicially indicated at this time. Consider repeat testing in 2-4 weeks if acute or primary syphilis is suspected. Performing Location [facility] [facility] [place] [address] [place] [address]
--- OUTSIDE RECORDS SUMMARY | 2024-07-17 07:36 | External Medical Summary | Summary of Care ---
Author Name Unknown Organization [facility] Address [address] [place] [address] Phone [phone] Care Team Providers Care Flat Grinder Operator Name Role Phone Toma Begum MD [facility] Care Provider Reason for Visit * Reason Onset Date Comments Films 02/23/2024 Encounter Details Date Type Department Care Team (Late st Contact Info) Description 02/23/2024 Telephone Radiology Film File [address] [place] [address] Support, Imaging Radiology [address] [place] [address] Films Allergies No known active allergiesdocumented as of this encounter (statuses as of 02/23/2024) Medications Medication Sig Dispensed Refills Start Date End Date Status 28-0.8 MG Oral Tablet Take by mouth. Active documented as of this encounter (statuses as of 02/23/2024) Active Problems Problem Noted Date Diagnosed Date History of thyroid disorder 01/18/2024 Overview: Patient reports history of abnormal thyroid labs, which resolved with herbal medication. Reports recent labs WNL; no thyroid labs available for review today. Last Assessment & Plan: Recommend monitoring TSH with free T4 if indicated every trimester. If patient experiences thyroid goiter or nodule during , we recommend that she be referred to endocrinology for evaluation and management. is not a contraindication to fine needle aspiration, but should be handled at the discretion of the machine biller. History of gestational hypertension 0 01/18/2024 Overview: Upon review of records from 2018 delivery and course at [facility], patient was diagnosed with gestational hypertension [...] with starting this therapy at 13 weeks. , supervision, high-risk, first trimest er 12/17/2023 Antepartum multigravida of advanced maternal age [...] discussed this history with her OB in [facility] and would like to confirm plan [...] as of this encounter (statuses as of 02/23/2024) Resolved Problems Problem Noted Date Diagnosed Date Resolved Date 13 weeks gestation of 01/20/2024 02/07/2024 Last Assessment & Plan: -Continue with vitamins -Low risk Qnatal, no information on gender. -Continue routine OB care documented as of this encounter (statuses as of 02/23/2024) Social History Tobacco Use Types Packs/Day Years [...] money to get more. Never true 12/07/2023 Mio Depression Scale Answer Date Recorded Mio Depression Scale Total 7 12/17/2023 The thought [...] encounter Miscellaneous Notes * Telephone Encounter - Corrie Garcia, System Support - 02/23/2024 10:29 AM EDT Alban Lemus requesting US pelvis 07/29/23, US preg 12/17/23 images be pushed through PACS. [place] Authorization to Release on file. Images pushed to [employer] PACS external connection. documented in this encounter Plan of Treatment Upcoming Encounters Date Type Department Care Team (Late st Contact Info) Description 03/06/2024 8:30 AM EDT Office Visit Gynecology/Obstetrics [facility] [address] [place] [address] Cintia Zee CRNP [address] [place] [address] 03/08/2024 10:30 AM EDT Office Visit Room Inspector Obstetrics Maternal Medicine, [place] [address] [place] [address] Milton Bradshaw MD [address] [place] [address] 03/08/2024 10:30 AM EDT Imaging Radiology [facility], [place] [address] [place] [address] Health Maintenance Due Date Last Done Comments [...] filedocumented as of this encounter Care Teams Flat Grinder Operator Relationship Specialty Start Date End Date Toma Begum MD [address] [place] [address] PCP - General Internal Medicine 07/24/23 documented as of this encounter
--- OUTSIDE RECORDS SUMMARY | 2024-07-17 07:36 | External Medical Summary | Summary of Care ---
Author Name Unknown Organization [facility] Address [address] [place] [address] Phone [phone] Care Team Providers Care Manager Employee Relations Name Role Phone Toma Begum MD Prima ry Care Provider Encounter Details Date Type Department Care Team (Late st Contact Info) Description 01/20/2024 1:00 PM EDT Telemedicine Pulverizer Mill Operator Obstetrics Maternal Medicine, [place] [address] [place], [place] [phone] Malik Cavanaugh MD [address] [place] [address] Hx of thrombophlebitis*; Antepartum multigravida of advanced maternal age; 13 weeks gestation of Allergies No known active allergiesdocumented as of this encounter (statuses as of 01/20/2024) Medications Medication Sig Dispensed Refills Start Date End Date Status 28-0.8 MG Oral Tablet Take by mouth. Active documented as of this encounter (statuses as of 01/20/2024) Active Problems Problem Noted Date Diagnosed Date 13 weeks gestation of 01/20/2024 Last Assessment & Plan: -Continue with vitamins -Low risk Qnatal, no information on gender. -Continue routine OB care History of thyroid disorder 01/18/2024 Overview: Patient [...] be handled at the discretion of the embossing toolsetter. History of gestational hypertension 0 01/18/2024 Overview: Upon review of records from 2018 delivery and course at [facility], patient was diagnosed with gestational hypertension and [...] this history with her OB in [facility] and would like to confirm plan of care prior to delivery. Last Assessment & Plan: Consideration Patient with [...] as of this encounter (statuses as of 01/20/2024) Social History Tobacco Use Types Packs/Day Years [...] money to get more. Never true 12/07/2023 [place] Depression Scale Answer Date Recorded [place] Depression Scale Total 7 12/17/2023 The thought [...] as of this encounter Progress Notes * Malik Cavanaugh MD - 01/20/2024 1:58 PM EDT Patient location: HOME. I was in a hospital or clinic location. After connecting through televideo,patient was verified with two unique identifiers. Patient (or authorized legal front desk representative) was then informed that this was a Telemedicine visit and being conducted confidentially over secure lines. Methods to assure confidentiality were taken. Patient acknowledged consent and understanding of pr ivacy and security of the Telemedicine visit. The patient agreed to participate. MATERNAL MEDICINE CONSULT Arlene Gallegos Terrellgisselle 01/20/2024 REFERRING PROVIDER: Cintia WONG Arlene is a 38 year old with intrauterine at 13w4d who presents today for an MFMconsult due to History of septic pelvic thrombophlebitis. HPI/CURRENT : pre- BMI=overweight (166#; 5'3"); FOB #1 [employer]queria Sheets 42yo, healthy; complicated by OB Torres Ramirez Problems (from 12/14/23 to present) Problem Noted Resolved 13 weeks gestation of 01/20/2024 by Malik Cavanaugh MD No History of thyroid disorder 01/18/2024 by Samantha Brooke CRNP No Overview Signed 01/18/2024 11:33 AM by Samantha Boroke CRNP Patient reports history of abnormal thyroid labs, which resolved with herbal medication. Reports recent labs WNL; no thyroid labs available for review today. History of gestational hypertension 01/18/2024 by Samantha Brooke CRNP No Overview Signed 01/18/2024 11:52 AM by Samantha Brooke CRNP Upon review of records from 2018 delivery and course at [facility], patient was diagnosed with gestational hypertension and prescribed labetalol following that delivery. Recommend bASA 81 mg daily as patient has several moderate risk factors for preeclampsia; includinggestational hypertension and AMA. BP Readings from Last 5 Encounters: 01/10/24 116/72 12/17/23 116/64 07/17/23 108/74 10/15/20 123/74 01/12/16 110/66 Baseline Preeclampsia Labs Lab Results Component Value Date/Time PLT 237 01/10/2024 08:34 AM , supervision, high-risk, first trimester 12/17/2023 by Natalie Cifuenets CNM No Antepartum multigravida of advanced maternal age 712/17/2023 by Natalie Cifuentes CNM No Overview Signed 01/18/2024 11:32 AM by Samantha Brooke CRNP Ms. Kent will be 38 years-old at time of delivery (DIALLO 07/23/24). Genetic screening in process. Hx of thrombophlebitis 12/17/2023 by Natalie Cifuentes CNM No Overview Addendum 01/18/2024 12:01 PM by Samantha Brooke CRNP In 2018 patient presented with fever 3 [...] was told that she should receive antibiotics andblood thinners shortly after delivery in any future pregnancies. Hematology did not recommend antepartum anticoagulation. At the time, patient was not intending to have another baby. Now that she is again, she has discussed this history with her OB in [facility] and would like to confirm plan of care prior to delivery. I have reviewed this patient's previous OB ultrasound reports, pertinent labwork and testing provided by her referring OB provider. Current Outpatient Medications Medication Sig Dispense Refill 28-0.8 MG Oral Tablet Take by mouth. No current facility-administered medications for this visit. OB History Para Term AB Living 3 2 2 0 0 2 SAB IAB Ectopic Multiple Live Births 0 0 0 0 2 # Outcome Date GA Lbr Agapito/2nd Weight Sex Type Anes PTL Lv 3 Current 2 Term 05/26/20 40w0d 3.884 kg (8 lb 9 oz) F Vag-Spont MEMO Comments: septic pelvic thrombosis 1 Term 01/11/18 40w0d 3.685 kg (8 lb 2 oz) F Vag-Spont MEMO Comments: FOB #1: Denies complications. Septic pelvic Thrombosis - per pt Obstetric Comments FOB #1: Taqueria Smyth 42 YO. Healthy; no children form outside of this relationship. Review of patient's allergies indicates: No Known Allergies Past Medical History: Diagnosis Date Endometriosis determined by laparoscopy Hx of thrombophlebitis 12/17/2023 Past Surgical History: Procedure Laterality Date LAPAROSCOPY DIAGNOSTIC MN ARTHROSCOPY KNEE DIAGNOSTIC W/WO SYNOVIAL BX SPX Family History Problem Relation Name Age of Onset Cancer Mother Breast ca Breast Cancer Mother 57 No Known Problems Father No Known Problems Brother Cancer Grandmother (Maternal) Breast ca Breast Cancer Grandmother (Maternal) No Known Problems Daughter No Known Problems Daughter Social History Tobacco Use Smoking status: Never Smokeless tobacco: Never Vaping Use Vaping status: Never Used Substance Use Topics Alcohol use: Not Currently Comment: rarely Drug use: No Social History Substance and Sexual Activity Drug Use No REVIEW OF SYSTEMS: headaches: no nausea/vomiting: denies reports movement: no abdominal pain/tenderness/cramping/contractions: no vaginal bleeding: no vaginal leaking of fluid: no leg pain/tenderness: no all other systems negative PHYSICAL EXAM: General: pleasant, alert and oriented DISCUSSION/RECOMMENDATIONS: Hx of thrombophlebitis Assessment & Plan: Consideration Patient with multiple [...] scenario, please rule out other potential causes offever and complete pelvic imaging, preferably with pelvic CT We recommend anticoagulation and antibiotic treatment if there is a concern for pelvic septic thrombophlebitis. Antepartum multigravida of advanced maternal age Assessment & Plan: CONSIDERATIONS: We reviewed the [...] at 38 weeks. Recommend delivery by EDC. 13 weeks gestation of Assessment & Plan: -Continue with vitamins -Low risk Qnatal, no information on gender. -Continue routine OB care Malik Cavanaugh MD 01/20/2024 1:58 PM I have discussed the patient's management with the medical trainee and agree with the note. Please refer to the documented findings and plan of care. This patient's visit today consisted of a telemedicine visit using real time audio/video technology. I personally interacted with the patient via this technology and confirmed the findings as documented. Milton Bradshaw MD 01/20/2024 3:33 PM Milton Bradshaw MD documented in this encounter Miscellaneous Notes * Assessment & Plan Note - Malik Cavanaugh MD - 01/20/2024 1:58 PM EDTAssociated Problem(s): Antepartum multigravida of advanced maternal age CONSIDERATIONS: We reviewed the most pertinent aspects [...] at 38 weeks. Recommend delivery by EDC. * Assessment & Plan Note - Malik Cavanaugh MD - 01/20/2024 1:55 PM EDTAssociated Problem(s): 13 weeks gestation of -Continue with vitamins -Low risk Qnatal, no information on gender. -Continue routine OB care * Assessment & Plan Note - Malik Cavanaugh MD - 01/20/2024 1:53 PM EDTAssociated Problem(s): Hx of thrombophlebitis Consideration Patient with multiple prior episodes of [...] scenario, please rule out other potential causes offever and complete pelvic imaging, preferably with pelvic CT We recommend anticoagulation and antibiotic treatment if there is a concern for pelvic septic thrombophlebitis. documented in this encounter Plan of Treatment Upcoming Encounters Date Type Department Care Team (Late st Contact Info) Description 02/07/2024 8:30 AM EDT Office Visit Gynecology/Obstetrics [facility] [address] [place] [address] Cintia Zee CRNP [address] [place] [place] [address] 03/08/2024 10:30 AM EDT Office Visit Pulverizer Mill Operator Obstetrics Maternal Medicine, [place] [address] [place] [address] Milton Bradshaw MD [address] [place], [place] [phone] 03/08/2024 10:30 AM EDT Imaging Radiology [facility] [address] [place], [place] [phone] Health Maintenance Due Date Last Done Comments Diabetes Screening 1983 Lipid Panel 1983 Depression Screening 1995 Hepatitis B Vaccine (1 of 3 - 19+ 3-dose series) 11/23/2002 COVID-19 Vaccine ( season) 2023 Influenza Vaccine (FLU shot) (#1) 2024 Mammogram 11/29/2024 11/30/2023, 07/0 07/2023, 11/25/2023, Additional history exists Pap Smear 12/16/2026 12/17/2023 Cervical Cancer Screening 12/16/2028 HPV/Co-Test 12/16/2028 12/17/2023, 07/22/2023 DTaP,Tdap,and Td Vaccines (2 - Td or Tdap) 03/06/2030 [...] as of this encounter Visit Diagnoses Diagnosis Hx of thrombophlebitis- Primary Personal history of thrombophlebitis Antepartum multigravida of advanced maternal age 13 weeks gestation of state, incidental documented in this encounter Care Teams Manager Employee Relations Relationship Specialty Start Date End Date Toma Begum MD [address] [address] PCP - General Internal Medicine 07/24/23 documented as of this encounter
--- OUTSIDE RECORDS SUMMARY | 2024-07-17 07:36 | External Medical Summary | Summary of Care ---
Author Name Unknown Organization [facility] Address [address] [place] [address] Phone [phone] Care Team Providers Care Healthcare Project Manager Name Role Phone Toma Begum MD Prima Care Provider Encounter Details Date Type Department Care Team (Late st Contact Info) Description 01/18/2024 Telephone Head Banquet Waiter/Waitress Obstetrics Maternal Medicine, [place] [address], [place] [phone] [place], Nurse Head Banquet Waiter/Waitress [facility] [address], [place] [phone] Allergies No known active allergiesdocumented as of this encounter (statuses as of 02/01/2024) Medications Medication Sig Dispensed Refills Start Date End Date Status 28-0.8 MG Oral Tablet Take by mouth. Active documented as of this encounter (statuses as of 02/01/2024) Active Problems Problem Noted Date Diagnosed Date [...] be handled at the discretion of the precision grinder. History of gestational hypertension 0 01/18/2024 Overview: Upon review of records from 2018 delivery and course at [facility], patient was diagnosed with gestational [...] this history with her OB in [facility] and would like to confirm [...] as of this encounter (statuses as of 02/01/2024) Social History Tobacco Use Types Packs/Day Years [...] money to get more. Never true 12/07/2023 [employer] Depression Scale Answer Date Recorded [employer] Depression Scale Total 7 12/17/2023 The thought [...] Telephone Encounter - Tierra Mccann OSA - 01/18/2024 12:21 PM EDT Spoke with Arlene. Appointment scheduled. Patient aware of date, time and location of Maternal Medicine appointment. * Telephone Encounter - Tierra Mccann OSA - 01/18/2024 12:20 PM EDT ----- Message from Samantha Brooke sent at 01/18/2024 12:04 PM EDT ----- Regarding: Needs f/u consult with Fellow Ekaterina, Please contact patient to schedule follow-up consult with MFM fellow to discuss history of septic pelvic thrombophlebitis. Other referral indications were addressed during [facility] consult on 01/13. Thank you! MARVIN Ramon Maternal Medicine documented in this encounter Plan of Treatment Upcoming Encounters Date Type Department Care Team (Late st Contact Info) Description 02/07/2024 8:30 AM EDT Office Visit Gynecology/Obstetrics [facility] [address] [place] [address] Cintia Zee CRNP [address] [place] [address] 03/08/2024 10:30 AM EDT Office Visit Head Banquet Waiter[facility]Wait[facility] [address] [place] [address] Milton Bradshaw MD [address] [place] [address] 03/08/2024 10:30 AM EDT Imaging Radiology [facility] [address] [place], [place] [phone] Health Maintenance Due Date Last Done Comments [...] filedocumented as of this encounter Care Teams Healthcare Project Manager Relationship Specialty Start Date End Date Toma Begum MD [address] [place] [address] PCP - General Internal Medicine 07/24/23 documented as of this encounter
--- OUTSIDE RECORDS SUMMARY | 2024-07-17 07:36 | External Medical Summary | Summary of Care ---
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 Name Role Phone Toma Begum MD Prima ry Care Provider Reason for Visit * Reason Comments Return Visit Encounter Details Date Type Department Care Team (Late st Contact Info) Description 02/07/2024 8:30 AM EDT Office Visit Gynecology/Obstetric s [facility] [address] [place] [address] Cintia Zee CRNP [address] [place] [address] High-risk in second trimester*; Antepartum multigravida of advanced maternal age; Hx of thrombophlebitis; History of thyroid disorder; History of gestational hypertension Allergies No known active allergiesdocumented as of this encounter (statuses as of 02/07/2024) Medications Medication Sig Dispensed Refills Start Date End Date Status 28-0.8 MG Oral Tablet Take by mouth. Active documented as of this encounter (statuses as of 02/07/2024) Active Problems Problem Noted Date Diagnosed Date [...] be handled at the discretion of the cctv technician. History of gestational hypertension 0 01/18/2024 Overview: Upon review of records from 2018 delivery and course at [facility], patient was diagnosed with gestational hypertension and [...] as of this encounter (statuses as of 02/07/2024) Resolved Problems Problem Noted Date Diagnosed Date Resolved Date 13 weeks gestation of 01/20/2024 02/07/2024 Last Assessment & Plan: -Continue with vitamins -Low risk Qnatal, no information on gender. -Continue routine OB care documented as of this encounter (statuses as of 02/07/2024) Social History Tobacco Use Types Packs/Day Years [...] money to get more. Never true 12/07/2023 [place] Depression Scale Answer Date Recorded [place] Depression Scale Total 7 12/17/2023 The thought [...] No 12/07/2023 Does the household have a [facility] source of income? (Household - for ages [...] Sign Reading Time Taken Comments Blood Pressure 118/62 02/07/2024 8:15 AM EDT Pulse - - Temperature - - Respiratory Rate - - Oxygen Saturation - - Inhaled Oxygen Concentration - - Weight 76.7 kg (169 lb) 02/07/2024 8:15 AM EDT Height - - Body Mass Index 29.94 01/10/2024 8:12 AM EDT documented in this encounter Progress Notes * Cintia Zee CRNP - 02/07/2024 8:29 AM EDT 16w1d Doing well. Counselor a flutter a few weeks ago, nothing since. No cramping/bleeding, some round ligament pain. Discussed/declined MSAFP. Met with MFM; did not have limited anatomy scan as she was informed this could be done locally. Advised these are normally done with MFM at [facility]; declines scheduling one here. Has anatomy scan set up at [facility]. Will start OTC baby ASA. 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
[2024-07-17] MEDS ORDERED: OXYTOCIN 30 UNITS/NSS 30 UNITS/500 ML BAG IV PRN (09:09)
--- NOTE | 2024-07-17 09:20 | History & Physical Report ---
Date of Service July 17, 2024 Assessment & Plan (1) AMA (advanced maternal age) multigravida 35+: Admission and Anticipated Discharge Date Admission Date: July 17, 2024 History of Present Illness Chief Complaint: induction of labor Primary Care Provider: Toma Jay MD 38 F P2002 at 39.1 weeks admitted for IOL for AMA and history of septic pelvic thrombophlebitis. GBS is negative. Allergies Allergy/AdvReac Type Severity Reaction Status Date / Time No Known Allergies Allergy Verified 08/05/23 07:26 Home Medications Medication Instructions Recorded Confirmed Type [id number] 1 mg 1 tab PO 1XD 07/17/24 07/17/24 History tablet Patient History Surgical History S/P knee surgery S/P tonsillectomy and adenoidectomy H/O oral surgery Family History Grandmother (Maternal) Breast cancer Grandfather (Paternal) Hypertension Dyslipidemia Grandmother (Paternal) Dyslipidemia Mother Breast cancer Denies family history of Colon cancer Ovarian cancer Prostate cancer Social History Smoking Status: Never smoker Second Hand Exposure: No; Do You Dip or Chew Tobacco: No; Hx Alcohol Use: No Hx Substance Use: No Preferred Language: Faroese Communication Ability: Effective Visual Impairment: No Limitations Hearing Ability: Normal 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: No Beliefs That Will Affect Care: None marital status: marital status details: Puneet Sheets ( [phone] Current Living Situation: Spouse and Family Current Living Situation Comment: - Taqueria and 2 daughters; 3 dogs current occupational status: employed current occupation: [employer] Other Information That Helps Us Care for You: No Feels Safe at Home: Yes Safety Concerns: Feels Safe At This Time Childhood Exposure to Second-Hand Smoke: No Dental Care, Regularly: Yes Physical Activity Frequency: 3-4 Times per Week Seatbelt Use: always Sunscreen Use: No Assistive Devices: Contacts and Glasses 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 Physical Exam Constitutional: WD/WN, vitals as above Eyes: PERRL, conjunctivae normal, anicteric sclerae Gastrointestinal (Abdomen): Inspection/Auscultation: abdomen normal to inspection Musculoskeletal: Extremities: extremities normal to inspection Skin: no rashes, warm and dry Neurologic: patellar DTR's 2+ bilat, sensation intact Psychiatric: A+Ox3, euthymic affect Genitourinary: no vaginal lesions, no adnexal mass normal external appearance OB Exam Abdomen: + estimated weight Manual OB Exam: + cervical dilation fingertip, + cervical effacement 50% and + station high OB Exam Monitor Tracing: + external FHT monitor used, + external uterine monitor used, + category I and + normal FHT variability EFW 8.5 lbs. Results & Data Vital Signs (Past 12 Hours) Vital Signs Temp Pulse Resp BP O2 Del Method 07/17/24 08:00 18 07/17/24 08:00 18 07/17/24 07:45 18 07/17/24 07:45 36.6 C 96 H 18 117/82 07/17/24 07:44 36.6 C 96 H 18 117/82 Room Air 07/17/24 07:36 96 H 117/82 Code Status & VTE Plan VTE Prophylaxis Plan VTE Prophylaxis will be ordered: No Monitoring External Monitor Cat 1
[2024-07-17] MEDS: miSOPROStoL 50 MCG TAB PO ONE (09:21)
[2024-07-17 10:00] LABS: Hematocrit (blood only) 35.3 % (37.0-47.0); Hemoglobin 12.1 g/dl (12.0-16.0); Mean Corpuscular Hemoglobin 30.4 pg (25.0-34.0); Mean Corpuscular Hgb Conc 34.3 g/dL (32.0-36.0); Mean Corpuscular Volume 88.7 fL (80.0-100.0); Mean Platelet Volume 11.5 fL (9.4-12.4); Platelet Count 186 K/uL (130-400); RDW Coefficient of Variation 13.6 % (11.5-14.5); RDW Standard Deviation 43.8 fL (36.4-46.3); Red Blood Count 3.98 M/uL (4.20-5.40); White Blood Count 12.11 K/ul (4.8-10.8)
--- NOTE | 2024-07-17 13:48 | Labor Progress Brief Note ---
Date of Service July 17, 2024 Assessment & Plan Admission and Anticipated Discharge Date Admission Date: July 17, 2024 Physical Exam Genitourinary: Manual OB Exam: + cervical dilation fingertip, + cervical effacement 50% and + station high OB Exam Monitor Tracing: + external FHT monitor used, + external uterine monitor used, + category I and + normal FHT variability will give another Cytotec Results & Data Vital Signs (Past 12 Hours) Vital Signs Temp Pulse Resp BP O2 Del Method 07/17/24 11:35 18 07/17/24 11:35 18 07/17/24 11:05 73 112/71 07/17/24 11:03 16 07/17/24 11:03 36.6 C 73 16 112/71 07/17/24 09:20 18 07/17/24 09:20 36.7 C 77 18 116/71 07/17/24 08:00 18 07/17/24 08:00 18 07/17/24 07:45 18 07/17/24 07:45 36.6 C 96 H 18 117/82 07/17/24 07:44 36.6 C 96 H 18 117/82 Room Air 07/17/24 07:36 96 H 117/82
[2024-07-17] MEDS: miSOPROStoL 50 MCG TAB PO STA ×2 (13:56→18:18)
--- NOTE | 2024-07-17 18:01 | Labor Progress Brief Note ---
Date of Service July 17, 2024 Assessment & Plan Admission and Anticipated Discharge Date Admission Date: July 17, 2024 Physical Exam Genitourinary: Manual OB Exam: + cervical dilation fingertip, + cervical effacement 50% and + station high OB Exam Monitor Tracing: + external FHT monitor used, + external uterine monitor used, + category I and + normal FHT variability Continue with Cytotec for ripening Results & Data Vital Signs (Past 12 Hours) Vital Signs Temp Pulse Resp BP O2 Del Method 07/17/24 16:38 85 07/17/24 16:38 116/72 07/17/24 16:38 36.7 C 85 18 116/72 07/17/24 11:35 18 07/17/24 11:35 18 07/17/24 11:05 73 112/71 07/17/24 11:03 16 07/17/24 11:03 36.6 C 73 16 112/71 07/17/24 09:20 18 07/17/24 09:20 36.7 C 77 18 116/71 07/17/24 08:00 18 07/17/24 08:00 18 07/17/24 07:45 18 07/17/24 07:45 36.6 C 96 H 18 117/82 07/17/24 07:44 36.6 C 96 H 18 117/82 Room Air 07/17/24 07:36 96 H 117/82
--- NOTE | 2024-07-17 18:11 | Labor Progress Brief Note ---
Date of Service July 17, 2024 Assessment & Plan Admission and Anticipated Discharge Date Admission Date: July 17, 2024 Physical Exam Genitourinary: ultrasound done at bedside by me confirms vertex presentation Results & Data Vital Signs (Past 12 Hours) Vital Signs Temp Pulse Resp BP O2 Del Method 07/17/24 18:03 73 120/68 07/17/24 16:38 85 07/17/24 16:38 116/72 07/17/24 16:38 36.7 C 85 18 116/72 07/17/24 11:35 18 07/17/24 11:35 18 07/17/24 11:05 73 112/71 07/17/24 11:03 16 07/17/24 11:03 36.6 C 73 16 112/71 07/17/24 09:20 18 07/17/24 09:20 36.7 C 77 18 116/71 07/17/24 08:00 18 07/17/24 08:00 18 07/17/24 07:45 18 07/17/24 07:45 36.6 C 96 H 18 117/82 07/17/24 07:44 36.6 C 96 H 18 117/82 Room Air 07/17/24 07:36 96 H 117/82
--- NOTE | 2024-07-17 22:29 | Labor Progress Brief Note ---
Date of Service July 17, 2024 Assessment & Plan Admission and Anticipated Discharge Date Admission Date: July 17, 2024 Physical Exam Genitourinary: OB Exam Abdomen: + fundal height and + vertex Manual OB Exam: + cervical dilation fingertip, + cervical effacement 50% and + station high OB Exam Monitor Tracing: + external FHT monitor used, + external uterine monitor used, + category I and + normal FHT variability Helton balloon inserted into cervix with 35 ml. saline Results & Data Vital Signs (Past 12 Hours) Vital Signs Temp Pulse Resp BP 07/17/24 18:57 37.0 C 18 07/17/24 18:55 75 121/80 07/17/24 18:03 73 120/68 07/17/24 16:38 85 07/17/24 16:38 116/72 07/17/24 16:38 36.7 C 85 18 116/72 07/17/24 11:35 18 07/17/24 11:35 18 07/17/24 11:05 73 112/71 07/17/24 11:03 16 07/17/24 11:03 36.6 C 73 16 112/71
[2024-07-17] MEDS: LACTATED RINGER'S 1,000 ML IV PRN (23:45)
[2024-07-17] MEDS: OXYTOCIN 30 UNITS/NSS 30 UNITS/500 ML BAG IV PRN (23:45)
--- NOTE | 2024-07-18 06:44 | Labor Progress Brief Note ---
Date of Service July 18, 2024 Assessment & Plan Admission and Anticipated Discharge Date Admission Date: July 17, 2024 Physical Exam Genitourinary: Manual OB Exam: + cervical dilation 3 cm and 4 cm, + cervical effacement 70%, + station -2 and + amniotic fluid clear OB Exam Monitor Tracing: + external FHT monitor used, + external uterine monitor used, + category I and + normal FHT variability AROM with Amni-hook clear fluid Results & Data Vital Signs (Past 12 Hours) Vital Signs Temp Pulse Resp BP 07/18/24 06:13 80 114/74 07/18/24 05:03 83 111/74 07/18/24 03:50 77 111/77 07/18/24 03:00 16 07/18/24 03:00 36.8 C 16 07/18/24 02:09 72 106/63 07/18/24 01:00 74 108/65 07/18/24 00:03 76 109/71 07/17/24 23:36 36.7 C 71 16 131/74 07/17/24 18:57 37.0 C 18 07/17/24 18:55 75 121/80
[2024-07-18] MEDS: miSOPROStoL 200 MCG TAB ONE (11:23)
[2024-07-18] MEDS: LIDOCAINE 1% LOCAL 20 ML VIAL INFIL PRN (11:25)
[2024-07-18] MEDS ORDERED: ACETAMINOPHEN 325 MG TAB PO PRN (11:34)
[2024-07-18] MEDS ORDERED: ACETAMINOPHEN W/CODEINE #3 1 TAB PO PRN (11:34)
[2024-07-18] MEDS ORDERED: bisacodyL 10 MG SUPP PR PRN (11:34)
[2024-07-18] MEDS ORDERED: oxyCODONE/ACETAMINOPHEN 5mg/325mg TAB PO PRN (11:34)
[2024-07-18] MEDS ORDERED: OXYTOCIN 30 UNITS/NSS 30 UNITS/500 ML BAG IV PRN (11:34)
--- NOTE | 2024-07-18 11:39 | Delivery Summary ---
Vaginal Delivery Summary Date of Service July 18, 2024 Vaginal Delivery Summary Patient is a 3 para 3 brought in for induction for macrosomia. She delivered at 39 weeks 2 days gestation. She delivered unmedicated without epidural. IV Pitocin was used to to produce good regular contractions. Eventually she went to full dilatation brought down a live male infant via direct occiput anterior position over an intact perineum. Loose nuchal cord which was reduced over the head. was suctioned through the mouth and the nose. Shoulders were delivered with some difficulty. We had to use flexion of maternal thighs towards the chest. Delivery of the posterior shoulder. 's Apgars were low immediately postdelivery. I will defer the exact numbers to the nurses. Inspection of the perineum revealed a first-degree laceration. This was repaired under local with a running 2-0 Vicryl out and to beyond the hymenal ring. A deep suture of 2-0 Vicryl to approximate the bulbocavernosus muscle. A separate deep suture to approximate the perineal body. And then a running subcuticular suture to approximate perineal skin edges. There was also a midline clitoral laceration. This was infiltrated with local. And then repaired with 3-0 chromic on an atraumatic needle. 3 interrupted sutures were used to approximate this tear. Then a red rubber Helton was inserted in the bladder and emptied. This ensured patency of the urethral opening. Quantitative blood loss was 135 mL. Patient tolerated delivery well.
[2024-07-18] MEDS: LIDOCAINE 1% MPF 5 ML VIAL ONE (11:51)
[2024-07-18] MEDS: miSOPROStoL 200 MCG TAB PR ONE (11:51)
[2024-07-18] MEDS: DIPHTHER/TETAN/PERTUS Vaccine (Tdap, Adol/Adult) 0.5mL IM ONE (12:29)
[2024-07-18] MEDS: BENZOCAINE 20% SPRY 85 APPLN/85 GM CAN EXT PRN (16:45)
[2024-07-18] MEDS: IBUPROFEN 600 MG TAB PO PRN (21:36)
[2024-07-18] MEDS: DOCUSATE SODIUM 100 MG CAP PO SCH (21:36)
[2024-07-19 08:18] LABS: Hematocrit (blood only) 32.8 % (37.0-47.0); Hemoglobin 11.1 g/dl (12.0-16.0); Mean Corpuscular Hemoglobin 30.1 pg (25.0-34.0); Mean Corpuscular Hgb Conc 33.8 g/dL (32.0-36.0); Mean Corpuscular Volume 88.9 fL (80.0-100.0); Mean Platelet Volume 11.4 fL (9.4-12.4); Platelet Count 188 K/uL (130-400); RDW Coefficient of Variation 13.7 % (11.5-14.5); RDW Standard Deviation 44.4 fL (36.4-46.3); Red Blood Count 3.69 M/uL (4.20-5.40); White Blood Count 16.66 K/ul (4.8-10.8)
[2024-07-19] MEDS: PRENATAL VITAMIN 1 TAB PO SCH (08:25)
--- NOTE | 2024-07-19 08:39 | Obstetrical Progress Note ---
Date of Service July 19, 2024 Assessment & Plan Admission and Anticipated Discharge Date Admission Date: July 17, 2024 Subjective Patient is seen and examined. She feels well, no complaints. Ambulating without dizziness Voiding without difficulty Tolerating regular diet with out N&V Bleeding is minimal No fever/ chills/ CP/ SOB/ N&V/ Leg pain Breast and bottle feeding without problems Vital Signs Temp Pulse Resp BP Pulse Ox O2 Del Method 07/19/24 04:00 36.6 C 76 18 109/77 98 Room Air 07/18/24 23:15 36.8 C 81 18 113/77 98 Room Air Lab Results 07/17/24 07/19/24 Range/Units 09:31 07:50 WBC 12.11 H 16.66 H (4.8-10.8) K/ul RBC 3.98 L 3.69 L (4.20-5.40) M/uL Hgb 12.1 11.1 L (12.0-16.0) g/dl Hct 35.3 L 32.8 L (37.0-47.0) % MCV 88.7 88.9 (80.0-100.0) fL MCH 30.4 30.1 (25.0-34.0) pg MCHC 34.3 33.8 (32.0-36.0) g/dL RDW Std Deviation 43.8 44.4 (36.4-46.3) fL RDW Coeff of Talib 13.6 13.7 (11.5-14.5) % Plt Count 186 188 (130-400) K/uL MPV 11.5 11.4 (9.4-12.4) fL Treponema pallidum Ab Negative (Negative) PE: General: Alert, orientedx3, NAD Abd: soft, NT, fundus firm, below Umbilicus Perineum intact, Lochia rubra minimal Ext; NT, no edema AP: 38 yo s/p , ppd# 1 VSS Afebrile doing well Continue routine care All questions were answered D/C home tomorrow Results & Data Vital Signs (Past 12 Hours) Vital Signs Temp Pulse Resp BP Pulse Ox O2 Del Method 07/19/24 04:00 36.6 C 76 18 109/77 98 Room Air 07/18/24 23:15 36.8 C 81 18 113/77 98 Room Air
[2024-07-19] MEDS: bisacodyL 5 MG TABEC PO SCH (20:03)
[2024-07-19] MEDS: HYDROCORTISONE ACETATE 25 MG SUPP PR PRN (20:03)
[2024-07-20 05:58] VITALS: RESP 16
[2024-07-20 06:33] LABS: Basophils # (auto) 0.04 K/uL (0.00-0.20); Basophils % (auto) 0.3 %; Eosinophils # (auto) 0.15 K/uL (0.00-0.50); Eosinophils % (auto) 1.2 %; Hematocrit (blood only) 31.4 % (37.0-47.0); Hemoglobin 10.6 g/dl (12.0-16.0); Immature Granulocytes # (auto) 0.08 K/uL (0.01-0.20); Immature Granulocytes % (auto) 0.6 %; Lymphocytes # (auto) 1.59 K/uL (1.20-3.40); Lymphocytes % (auto) 12.8 %; Mean Corpuscular Hemoglobin 30.6 pg (25.0-34.0); Mean Corpuscular Hgb Conc 33.8 g/dL (32.0-36.0); Mean Corpuscular Volume 90.8 fL (80.0-100.0); Mean Platelet Volume 11.4 fL (9.4-12.4); Monocytes # (auto) 0.92 K/uL (0.11-0.59); Monocytes % (auto) 7.4 %; Neutrophils # (auto) 9.62 K/uL (1.40-6.50); Neutrophils % (auto) 77.7 %; Platelet Count 190 K/uL (130-400); RDW Coefficient of Variation 13.6 % (11.5-14.5); RDW Standard Deviation 44.8 fL (36.4-46.3); Red Blood Count 3.46 M/uL (4.20-5.40)
[2024-07-20 08:33] VITALS: BP 111/78; PULSE 93; TEMP 98.2; O2SAT 97
--- NOTE | 2024-07-20 11:48 | Obstetrical Progress Note ---
Date of Service July 20, 2024 Subjective Ambulation: ambulating normally Voiding: no voiding problems Passing Gas:: Yes Diet Tolerance:: regular diet Lochia:: Small Feeding Type:: breast feeding Current Pain Level(1-10): 0 doing well Physical Exam Constitutional WD/WN, vitals as above Gastrointestinal (Abdomen) Inspection/Auscultation: abdomen normal to inspection abdomen sof t and non-tender, fundus firm below U Musculoskeletal Extremities: extremities normal to inspection Skin no rashes, warm and dry Neurologic patellar DTR's 2+ bilat, sensation intact Psychiatric A+Ox3, euthymic affect Results & Data Vital Signs (Past 12 Hours) Vital Signs Temp Pulse Resp BP Pulse Ox O2 Del Method 07/20/24 11:09 36.8 C 93 H 16 111/78 97 07/20/24 07:30 36.8 C 93 H 16 111/78 97 Room Air 07/20/24 04:00 36.7 C 78 16 116/75 98 Room Air Laboratory Results 07/17/24 07/19/24 07/20/24 09:31 07:50 05:48 WBC 12.11 H 16.66 H 12.40 H RBC 3.98 L 3.69 L 3.46 L Hgb 12.1 11.1 L 10.6 L Hct 35.3 L 32.8 L 31.4 L MCV 88.7 88.9 90.8 MCH 30.4 30.1 30.6 MCHC 34.3 33.8 33.8 RDW Std Deviation 43.8 44.4 44.8 RDW Coeff of Talib 13.6 13.7 13.6 Plt Count 186 188 190 MPV 11.5 11.4 11.4 Immature Gran % (Auto) 0.6 Neut % (Auto) 77.7 Lymph % (Auto) 12.8 [place] % (Auto) 7.4 Eos % (Auto) 1.2 Baso % (Auto) 0.3 Neut # (Auto) 9.62 H Lymph # (Auto) 1.59 [place] # (Auto) 0.92 H Eos # (Auto) 0.15 Baso # (Auto) 0.04 Immature Gran # (Auto) 0.08 Treponema pallidum Ab Negative
== END 2024-07-20 11:50 | disposition home or self-care (01) | DRG 807 ==
LOC: 4S1 07:26 → 4E2 07-18 14:15